=== PATIENT | female | born 1960 | race Caucasian/White ===

== ENCOUNTER 2017-09-15 13:11 | Inpatient (IN) ==
[2017-09-15] MEDS ORDERED: Ondansetron 4 MG/2 ML VIAL IVP PRN (17:17)
--- NOTE | 2017-09-15 17:17 | Emergency Department Note ---
Disposition Clinical Impression: Hyperglycemia, Hyponatremia, Weakness Fatigue Qualifiers: Fatigue type: unspecified Qualified Code(s): R53.83 - Other fatigue Fever Qualifiers: Fever type: unspecified Qualified Code(s): R50.9 - Fever, unspecified Disposition: Admitted As Inpatient Condition: Fair Time of Disposition: 19:28 General Adult HPI - General Chief complaint: ED General Medical Stated complaint: Cold Symptoms Time Seen by Provider: 09/15/17 16:47 Source: patient, EMS Limitations: no limitations Nursing Notes Reviewed: Yes Vital Signs Reviewed: Yes - History of Present Illness HPI Narrative: Patient is a 56-year-old female complains of generalized weakness, fatigue and fevers that started one day ago. She states that she "feels like crap". Patient states symptoms came on suddenly and she has been feeling very hot and worn out. Patient states she has a history of diabetes and that she felt these same symptoms the last time she was admitted and treated for sepsis. Patient states that she has been having urinary incontinence from not being able to make it to the bathroom in time. Patient admits to nausea and vomiting upon arrival to the emergency department. Pain Scale: 0 - Related Data Home Medications Medication Instructions Recorded Confirmed Albuterol Sulfate [Albuterol 2 puff IH Q4HR PRN 03/31/15 09/15/17 Inhaler] Aspirin 81 mg PO DAILY 03/31/15 09/15/17 Sitagliptin Phosphate [Januvia] 100 mg PO DAILY 03/31/15 09/15/17 Albuterol Neb [Proventil Neb] 2.5 mg IH QID PRN 04/27/15 09/15/17 Budesonide/Formoterol 160/4.5 2 puff IH BID 04/27/15 09/15/17 [Symbicort] Clopidogrel [Plavix] 75 mg PO DAILY 04/27/15 09/15/17 Montelukast [Singulair] 10 mg PO QPM 04/27/15 09/15/17 Potassium Chloride 10 meq PO DAILY 04/27/15 09/15/17 Cholecalciferol (D-3) [Vitamin D] 2,000 unit PO DAILY 05/31/16 09/15/17 Duloxetine HCl [Cymbalta] 60 mg PO DAILY 05/31/16 09/15/17 Fluticasone Propionate Nasal 1 spray NS DAILY 05/31/16 09/15/17 [Flonase] Glucagon, Human Recombinant 1 mg IM AD PRN 05/31/16 09/15/17 [GlucaGen] Ipratropium/Albuterol Neb [Duoneb] 3 ml IH Q4HR PRN 05/31/16 09/15/17 Metoprolol XL (24 HR) Succ [Toprol 12.5 mg PO DAILY 05/31/16 09/15/17 Xl] Nitroglycerin [Nitrostat] 0.4 mg SL AD PRN 05/31/16 09/15/17 Ranitidine HCl [Zantac] 150 mg PO BID 05/31/16 09/15/17 TraZODone 50 - 100 mg PO HS PRN 05/31/16 09/15/17 Amitriptyline [Elavil] 50 mg PO HS 05/01/17 09/15/17 Atorvastatin Calcium [Lipitor] 20 mg PO HS 05/01/17 09/15/17 Gabapentin [Neurontin] 800 mg PO QID 05/01/17 09/15/17 Lipase/Protease/Amylase [[place] 1 each PO AD 05/01/17 09/15/17 24,000 Units Capsule] Lipase/Protease/Amylase [[place] 1 each PO TIDWM 05/01/17 09/15/17 36,000 Units Capsule] Liraglutide [Victoza 2-Yovani] 1.8 mg SQ DAILY 05/01/17 09/15/17 Tizanidine HCl [Zanaflex] 4 - 8 mg PO TID PRN 05/01/17 09/15/17 Subcutaneous Insulin Pump [T:Slim] 1 each MC AD 09/15/17 09/15/17 Allergies Allergy/AdvReac Type Severity Reaction Status Date / Time prednisone Allergy Hives Verified 05/01/17 09:04 ibuprofen AdvReac See Verified 05/01/17 09:04 Comments liraglutide [From Victoza] AdvReac Vomiting Verified 05/01/17 09:04 metformin AdvReac Diarrhea Verified 05/01/17 09:04 NSAIDS (Non-Steroidal AdvReac See Verified 05/01/17 09:04 Anti-Inflamma Comments promethazine [From Phenergan] AdvReac Vomiting Verified 05/01/17 09:04 tramadol AdvReac Diarrhea Verified 05/01/17 09:04 All systems ED: reviewed and negative except as stated. Review of Systems: As Per HPI Constitutional: Reports: fever, chills, weakness Gastrointestinal: Reports: nausea, vomiting Genitourinary: Reports: urgency (With incontinence) Endocrine: Reports: fatigue Past Medical History - Past Medical History Attestation: Yes The following information was validated with the patient. Source: patient, nursing notes reviewed Medical history: Reports: COPD, coronary artery disease, DVT, diabetes, hyperlipidemia, hypertension, myocardial infarction, syncope Surgical history: Reports: cholecystectomy Psychiatric history: Reports: bipolar, depression LIFEGUARD history: Reports: bilateral tubal ligation - Social History Smoking Status: Current every day smoker Smokeless Tobacco Status: No Alcohol use: Reports: none Drug use: Reports: none Physical Exam Vital Signs Temperature 100.3 F H 09/15/17 13:31 Pulse Rate 118 09/15/17 13:31 Respiratory Rate 18 09/15/17 13:31 Blood Pressure 146/79 09/15/17 13:31 O2 Sat by Pulse Oximetry 97 09/15/17 13:31 Temperature 100.3 F H 09/15/17 13:31 Pulse Rate 118 09/15/17 13:31 Respiratory Rate 18 09/15/17 13:31 Blood Pressure 146/79 09/15/17 13:31 O2 Sat by Pulse Oximetry 97 09/15/17 16:54 Oxygen Delivery Oxygen Delivery Nasal Cannula 56-year-old female who is alert and oriented 3 with a GCS of 15 who appears severely fatigued is febrile at 100.3, tachycardic at 118 bpm and hypertensive at 146/79, O2 sat 97 on room air - General Limitations: no limitations General appearance: alert, in no apparent distress - Head Head exam: atraumatic, normocephalic, normal inspection - Eye Eye exam: Present: normal appearance, PERRL, EOMI - ENT ENT exam: normal exam, normal oropharynx, mucous membranes moist - Chest Chest inspection: Present: normal inspection, symmetric chest wall rise - Respiratory Respiratory exam: Present: normal lung sounds bilaterally. Absent: respiratory distress, wheezes - Cardiovascular Cardiovascular exam: Present: normal rhythm, tachycardia, normal heart sounds - Abdominal Exam Abdominal exam: Present: soft, Non-Tender. Absent: tenderness, distention, guarding, rebound, rigidity - Extremities Exam Extremities exam: Present: normal inspection, full ROM. Absent: tenderness, pedal edema - Back Exam Back exam: Present: normal inspection, full ROM. Absent: tenderness - Skin Skin exam: Present: warm, dry, intact, normal color Course - Reevaluation(s) Reevaluation #1: Lab results are up and show elevation of bili hydroxybutyric acid the patient has no acidosis the patient is also hyponatremic Time: 18:33 Vital Signs Temperature 100.3 F H 09/15/17 13:31 Pulse Rate 118 09/15/17 13:31 Respiratory Rate 18 09/15/17 13:31 Blood Pressure 146/79 09/15/17 13:31 O2 Sat by Pulse Oximetry 97 09/15/17 13:31 Temperature 98.4 F 09/15/17 21:22 Pulse Rate 102 09/15/17 21:22 Respiratory Rate 17 09/15/17 21:22 Blood Pressure 103/50 09/15/17 21:22 O2 Sat by Pulse Oximetry 97 09/15/17 21:22 Oxygen Delivery Oxygen Delivery Nasal Cannula Medical Decision Making - MDM Narrative Medical decision making narrative: Differential diagnoses for DKA, sepsis, viral infection, UTI. Patient currently has a POC glucose of 382 is febrile and tachycardic. Patient is SIRS positive. Beta hydroxybutyric acid, VBG, urinalysis, CBC, BMP, lactic acid, and cultures ordered. 2 L IV normal saline and Tylenol ordered 1830 hrs.: Nurse informed me that patient states she cannot get up to urinate. Nurse informed the patient that we would have to straight catheter and the patient agreed. 1841 hrs.: Discussed with the patient her current condition concerning her abnormal lab values of the elevated WBC, elevated beta hydroxybutyric acid, decreased sodium, but no anion gap acidosis. Patient is not in DKA but due to her extremely elevated blood glucose, she is at an increased risk and therefore recommend admission for fluid hydration and insulin therapy to get her blood glucose under control. 1928 hrs.: Urine results show no UTI but patient has large amount of ketones in her urine. Patient was started on insulin IV 10 units. Patient's vital signs are improving Dr. Vaughn the hospitalist as accepted the patient for admission at 1932 hrs. - Lab Data Lab results reviewed: Yes I reviewed the patient's lab results. Lab results narrative: Short CBC 09/15/17 Range/Units 17:41 WBC 12.3 H (4.3-11.1) K/mcL Hgb 11.9 (11.5-15.4) g/dL Hct 34.9 L (35.3-44.9) % Plt Count 200 (140-400) K/mcL Neutrophils # 10.9 H (1.6-8.9) K/mcL BMP 09/15/17 Range/Units 17:41 Sodium 129 L (136-145) mEq/L Potassium 4.3 (3.5-5.1) mEq/L Chloride 93 L (98-107) mEq/L Carbon Dioxide 26 (23-29) mEq/L BUN 11 (6-20) mg/dL Creatinine 0.83 (0.60-1.20) mg/dL Glucose 400 H (70-105) mg/dL Calcium 9.3 (8.6-10.3) mg/dL Liver Function 09/15/17 Range/Units 17:41 Total Bilirubin 1.4 H (0.3-1.0) mg/dL Direct Bilirubin 0.4 H (0.0-0.2) mg/dL AST 7 L (13-39) Units/L ALT 11 (7-52) Units/L Alkaline Phosphatase 82 (34-104) Units/L Albumin 4.1 (3.5-5.7) g/dL Result diagrams: 09/15/17 17:41 09/15/17 17:41 Lab Results 09/15/17 09/15/17 09/15/17 Range/Units 17:10 17:41 17:41 WBC 12.3 H (4.3-11.1) K/mcL RBC 3.94 (3.82-4.97) M/mcL Hgb 11.9 (11.5-15.4) g/dL Hct 34.9 L (35.3-44.9) % MCV 88.6 (83.0-100.0) fL MCH 30.2 (28.0-33.3) pg MCHC 34.1 (31.6-35.5) g/dL RDW 14.3 (11.5-14.5) % Plt Count 200 (140-400) K/mcL MPV 9.7 (9.4-12.4) fL Immature Gran % 0.6 (0-4) % Seg Neutrophils % 88.7 % Lymphocytes % 4.3 % Monocytes % 5.8 % Eosinophils % 0.2 % Basophils % 0.4 % Neutrophils # 10.9 H (1.6-8.9) K/mcL Lymphocytes # 0.5 L (0.6-4.6) K/mcL Monocytes # 0.7 (0.0-1.3) K/mcL Eosinophils # 0.0 (0.0-0.6) K/mcL Basophils # 0.1 (0.0-0.2) K/mcL PT 13.1 H (9.4-12.1) Seconds INR 1.2 VBG pH (7.32-7.42) pH Units VBG pCO2 (41-51) mmHg VBG pO2 (25-50) mmHg VBG HCO3 (21-27) mEq/L Sodium (136-145) mEq/L Potassium (3.5-5.1) mEq/L Chloride (98-107) mEq/L Carbon Dioxide (23-29) mEq/L BUN (6-20) mg/dL Creatinine (0.60-1.20) mg/dL Est GFR ( Amer) (> 60) Est GFR (Non-Af Amer) (> 60) BUN/Creatinine Ratio (6-26) Glucose (70-105) mg/dL POC Glucose 382 H (58-89) Calculated Osmolality (280-300) Lactic Acid (0.5-2.2) mmol/L Calcium (8.6-10.3) mg/dL Phosphorus (2.7-4.5) mg/dL Magnesium (1.6-2.6) mg/dL Total Bilirubin (0.3-1.0) mg/dL Direct Bilirubin (0.0-0.2) mg/dL Indirect Bilirubin (0.0-1.2) mg/dL AST (13-39) Units/L ALT (7-52) Units/L Alkaline Phosphatase (34-104) Units/L Troponin I (< 0.04) ng/mL Serum Total Protein (6.4-8.9) g/dL Albumin (3.5-5.7) g/dL Globulin (2.4-3.5) g/dL Albumin/Globulin Ratio (1.1-2.2) Beta-Hydroxybutyric Acd (0.02-0.27) mmol/L Urine Color (Yellow) Urine Clarity (Clear) Urine pH (5.0-8.0) pH Units Ur Specific [place] (1.010-1.025) Urine Protein (Neg-Trace) mg/dL Urine Glucose (UA) (Normal) mg/dL Urine Ketones (Negative) mg/dL Urine Blood (Negative) Urine Nitrite (Negative) Urine Bilirubin (Negative) Urine Urobilinogen (Normal) mg/dL Ur Leukocyte Esterase (Negative) Urine Microscopic RBC (0-3) per hpf Urine Microscopic WBC (0-3) per hpf Ur Squamous Epith Cells (None-Few) per lpf Urine Bacteria (None-Few) per hpf Hyaline Casts (None-Few) per lpf Ur Culture Indicated? (NO) 09/15/17 09/15/17 09/15/17 Range/Units 17:41 17:41 17:41 WBC (4.3-11.1) K/mcL RBC (3.82-4.97) M/mcL Hgb (11.5-15.4) g/dL Hct (35.3-44.9) % MCV (83.0-100.0) fL MCH (28.0-33.3) pg MCHC (31.6-35.5) g/dL RDW (11.5-14.5) % Plt Count (140-400) K/mcL MPV (9.4-12.4) fL Immature Gran % (0-4) % Seg Neutrophils % % Lymphocytes % % Monocytes % % Eosinophils % % Basophils % % Neutrophils # (1.6-8.9) K/mcL Lymphocytes # (0.6-4.6) K/mcL Monocytes # (0.0-1.3) K/mcL Eosinophils # (0.0-0.6) K/mcL Basophils # (0.0-0.2) K/mcL PT (9.4-12.1) Seconds INR VBG pH (7.32-7.42) pH Units VBG pCO2 (41-51) mmHg VBG pO2 (25-50) mmHg VBG HCO3 (21-27) mEq/L Sodium 129 L (136-145) mEq/L Potassium 4.3 (3.5-5.1) mEq/L Chloride 93 L (98-107) mEq/L Carbon Dioxide 26 (23-29) mEq/L BUN 11 (6-20) mg/dL Creatinine 0.83 (0.60-1.20) mg/dL Est GFR ( Amer) > 60 (> 60) Est GFR (Non-Af Amer) > 60 (> 60) BUN/Creatinine Ratio 13 (6-26) Glucose 400 H (70-105) mg/dL POC Glucose (58-89) Calculated Osmolality 284 (280-300) Lactic Acid 1.0 (0.5-2.2) mmol/L Calcium 9.3 (8.6-10.3) mg/dL Phosphorus 2.8 (2.7-4.5) mg/dL Magnesium 1.6 (1.6-2.6) mg/dL Total Bilirubin 1.4 H (0.3-1.0) mg/dL Direct Bilirubin 0.4 H (0.0-0.2) mg/dL Indirect Bilirubin 1.0 (0.0-1.2) mg/dL AST 7 L (13-39) Units/L ALT 11 (7-52) Units/L Alkaline Phosphatase 82 (34-104) Units/L Troponin I (< 0.04) ng/mL Serum Total Protein 7.9 (6.4-8.9) g/dL Albumin 4.1 (3.5-5.7) g/dL Globulin 3.8 H (2.4-3.5) g/dL Albumin/Globulin Ratio 1.1 (1.1-2.2) Beta-Hydroxybutyric Acd 0.77 H (0.02-0.27) mmol/L Urine Color (Yellow) Urine Clarity (Clear) Urine pH (5.0-8.0) pH Units Ur Specific [place] (1.010-1.025) Urine Protein (Neg-Trace) mg/dL Urine Glucose (UA) (Normal) mg/dL Urine Ketones (Negative) mg/dL Urine Blood (Negative) Urine Nitrite (Negative) Urine Bilirubin (Negative) Urine Urobilinogen (Normal) mg/dL Ur Leukocyte Esterase (Negative) Urine Microscopic RBC (0-3) per hpf Urine Microscopic WBC (0-3) per hpf Ur Squamous Epith Cells (None-Few) per lpf Urine Bacteria (None-Few) per hpf Hyaline Casts (None-Few) per lpf Ur Culture Indicated? (NO) 09/15/17 09/15/17 09/15/17 Range/Units 17:41 18:14 18:50 WBC (4.3-11.1) K/mcL RBC (3.82-4.97) M/mcL Hgb (11.5-15.4) g/dL Hct (35.3-44.9) % MCV (83.0-100.0) fL MCH (28.0-33.3) pg MCHC (31.6-35.5) g/dL RDW (11.5-14.5) % Plt Count (140-400) K/mcL MPV (9.4-12.4) fL Immature Gran % (0-4) % Seg Neutrophils % % Lymphocytes % % Monocytes % % Eosinophils % % Basophils % % Neutrophils # (1.6-8.9) K/mcL Lymphocytes # (0.6-4.6) K/mcL Monocytes # (0.0-1.3) K/mcL Eosinophils # (0.0-0.6) K/mcL Basophils # (0.0-0.2) K/mcL PT (9.4-12.1) Seconds INR VBG pH 7.36 (7.32-7.42) pH Units VBG pCO2 47 (41-51) mmHg VBG pO2 125 H (25-50) mmHg VBG HCO3 27 (21-27) mEq/L Sodium (136-145) mEq/L Potassium (3.5-5.1) mEq/L Chloride (98-107) mEq/L Carbon Dioxide (23-29) mEq/L BUN (6-20) mg/dL Creatinine (0.60-1.20) mg/dL Est GFR ( Amer) (> 60) Est GFR (Non-Af Amer) (> 60) BUN/Creatinine Ratio (6-26) Glucose (70-105) mg/dL POC Glucose (58-89) Calculated Osmolality (280-300) Lactic Acid (0.5-2.2) mmol/L Calcium (8.6-10.3) mg/dL Phosphorus (2.7-4.5) mg/dL Magnesium (1.6-2.6) mg/dL Total Bilirubin (0.3-1.0) mg/dL Direct Bilirubin (0.0-0.2) mg/dL Indirect Bilirubin (0.0-1.2) mg/dL AST (13-39) Units/L ALT (7-52) Units/L Alkaline Phosphatase (34-104) Units/L Troponin I < 0.03 (< 0.04) ng/mL Serum Total Protein (6.4-8.9) g/dL Albumin (3.5-5.7) g/dL Globulin (2.4-3.5) g/dL Albumin/Globulin Ratio (1.1-2.2) Beta-Hydroxybutyric Acd (0.02-0.27) mmol/L Urine Color Yellow (Yellow) Urine Clarity Cloudy A (Clear) Urine pH 6.0 (5.0-8.0) pH Units Ur Specific [place] > 1.030 H (1.010-1.025) Urine Protein 100 H (Neg-Trace) mg/dL Urine Glucose (UA) >=1000 H (Normal) mg/dL Urine Ketones 15 H (Negative) mg/dL Urine Blood Small H (Negative) Urine Nitrite Negative (Negative) Urine Bilirubin Negative (Negative) Urine Urobilinogen Normal (Normal) mg/dL Ur Leukocyte Esterase Negative (Negative) Urine Microscopic RBC 3-5 H (0-3) per hpf Urine Microscopic WBC 15-30 H (0-3) per hpf Ur Squamous Epith Cells Many H (None-Few) per lpf Urine Bacteria Many H (None-Few) per hpf Hyaline Casts None Seen (None-Few) per lpf Ur Culture Indicated? NO (NO) - Radiology Data Radiology results reviewed: Yes I reviewed the patient's radiology results. Chest X-Ray 09/15/17 18:49 IMPRESSION: No acute cardiopulmonary abnormality. D/ / Osman Merlos MD / Osman Merlos MD Interpreting Provider: Osman Merlos MD - EKG Data EKG #1 EKG attestation: Yes I reviewed and interpreted this EKG. EKG results narrative: EKG taken 09/15/2017 at 1733 hrs. shows a sinus tachycardia at a rate of 1 16 bpm without signs of ischemia. His EKG for comparison taken 11/11/2016 shows a sinus rhythm at 95 bpm with no also no signs of ischemia.
[2017-09-15] MEDS: 0.9 % Sodium Chloride 1,000 ML IVC SCH ×2 (17:43→19:35)
--- NOTE | 2017-09-15 17:43 | Emergency Department Note ---
START Narrative - START START: I examined this patient and my medical decision-making was reviewed with the emergency medicine resident. I agree with the documented findings, disposition and treatment plan as described except to the extent set forth below. Patient seen with emergency medicine resident Dr. Baltazar Brand, Please see a copy of his note for details of the H&P, ED evaluation, management and disposition. I have independently evaluated the patient and confirmed appropriate portions of the history and physical exam. Briefly: A 56-year-old female diabetic via EMS for nausea vomiting weakness loss of appetite polyuria polydipsia generalized weakness cough headache and myalgias. Patient otherwise febrile tachycardic ill-appearing but nontoxic. Patient interlude of normal saline bolus. Patient getting screening labs chest x-ray EKG urinalysis. Admission is anticipated. Disposition pending.
[2017-09-15 17:54] LABS: Basophils # 0.1 K/mcL (0.0-0.2); Basophils % 0.4 %; Eosinophils % 0.2 %; Hematocrit 34.9 % (35.3-44.9); Hemoglobin 11.9 g/dL (11.5-15.4); Immature Granulocytes % 0.6 % (0-4); Lymphocytes # 0.5 K/mcL (0.6-4.6); Lymphocytes % 4.3 %; Mean Corpuscular HGB Conc 34.1 g/dL (31.6-35.5); Mean Corpuscular Hemoglobin 30.2 pg (28.0-33.3); Mean Corpuscular Volume 88.6 fL (83.0-100.0); Mean Platelet Volume 9.7 fL (9.4-12.4); Monocytes # 0.7 K/mcL (0.0-1.3); Monocytes % 5.8 %; Neutrophils # 10.9 K/mcL (1.6-8.9); Platelet Count 200 K/mcL (140-400); Red Blood Count 3.94 M/mcL (3.82-4.97); Red Cell Distribution Width 14.3 % (11.5-14.5); Segmented Neutrophils % 88.7 %
[2017-09-15 18:00] LABS: INR 1.2; Prothrombin Time 13.1 Seconds (9.4-12.1)
[2017-09-15 18:15] LABS: Alanine Aminotransferase 11 Units/L (7-52); Albumin 4.1 g/dL (3.5-5.7); Albumin/Globulin Ratio 1.1 (1.1-2.2); Alkaline Phosphatase 82 Units/L (34-104); Aspartate Amino Transferase 7 Units/L (13-39); BUN/Creatinine Ratio 13 (6-26); Bilirubin,Direct 0.4 mg/dL (0.0-0.2); Bilirubin,Total 1.4 mg/dL (0.3-1.0); Blood Urea Nitrogen 11 mg/dL (6-20); Calcium 9.3 mg/dL (8.6-10.3); Carbon Dioxide 26 mEq/L (23-29); Chloride 93 mEq/L (98-107); Globulin 3.8 g/dL (2.4-3.5); Glucose 400 mg/dL (70-105); Magnesium 1.6 mg/dL (1.6-2.6); Osmolality,Calculated 284 (280-300); Phosphorous 2.8 mg/dL (2.7-4.5); Potassium 4.3 mEq/L (3.5-5.1); Sodium 129 mEq/L (136-145); Total Protein 7.9 g/dL (6.4-8.9); eGFR For African Americans > 60 (> 60); eGFR For Non-African Americans > 60 (> 60)
[2017-09-15 18:18] LABS: VBG HCO3 27 mEq/L (21-27); VBG PCO2 47 mmHg (41-51); VBG PH 7.36 pH Units (7.32-7.42); VBG PO2 125 mmHg (25-50)
[2017-09-15 19:14] LABS: Bilirubin,Urine Negative (Negative); Blood,Urine Small (Negative); Clarity,Urine Cloudy (Clear); Color,Urine Yellow (Yellow); Glucose,Urine (UA) >=1000 mg/dL (Normal); Ketones,Urine 15 mg/dL (Negative); Leukocyte Esterase,Urine Negative (Negative); Nitrite,Urine Negative (Negative); Protein,Urine 100 mg/dL (Neg-Trace); Specific Gravity,Urine > 1.030 (1.010-1.025); Urobilinogen,Urine Normal (Normal)
[2017-09-15 19:16] LABS: Bacteria,Urine Many per hpf (None-Few); Hyaline Casts,Urine None Seen per lpf (None-Few); Squamous Epithelial Cell,Urine Many per lpf (None-Few); WBC,Urine 15-30 per hpf (0-3)
[2017-09-15] MEDS ORDERED: Insulin Human Regular 10 UNIT in 0.9 % Sodium Chloride 10 ML IV ONE ×2 (19:22→19:26)
[2017-09-15] MEDS ORDERED: 0.9 % Sodium Chloride 1,000 ML ONE (19:33)
[2017-09-15] MEDS ORDERED: Acetaminophen 325 MG TABLET PO PRN (23:04)
[2017-09-15] MEDS ORDERED: Naloxone 0.4 MG/ML INJ IVP PRN (23:04)
[2017-09-15] MEDS ORDERED: traZODone 50 MG TABLET PO PRN (23:24)
[2017-09-15] MEDS ORDERED: Ipratropium/Albuterol Neb 3 ML IH PRN (23:24)
[2017-09-15] MEDS ORDERED: Albuterol 2.5 MG/3 ML NEBULIZER IH PRN (23:24)
[2017-09-15] MEDS ORDERED: tiZANidine 4 MG TABLET PO PRN (23:24)
[2017-09-15] MEDS ORDERED: Nitroglycerin 0.4 MG TAB.SUBL SL PRN (23:24)
[2017-09-15] MEDS ORDERED: 0.9 % Sodium Chloride 1,000 ML IVC ONE (23:32)
[2017-09-15] MEDS ORDERED: Dextrose Gel 15 GM/37.5 ML TUBE PO PRN ×2 (23:37)
[2017-09-15] MEDS ORDERED: D5% in Water 1,000 ML IVC PRN (23:37)
[2017-09-15] MEDS ORDERED: *HR* Dextrose 50 % in Water (Syg) 50 ML SYRINGE IVP PRN (23:37)
[2017-09-15] MEDS ORDERED: Insulin DETEMIR 100 UNIT/ML X5UNITS SQ SCH (23:45)
[2017-09-15] MEDS ORDERED: 0.9 % Sodium Chloride 1,000 ML IVC SCH (23:45)
--- NOTE | 2017-09-15 23:48 | Internal Med History&Physical ---
Date of Encounter: 09/15/17 Time of Encounter: 22:00 Assessment and Plan (1) UTI (urinary tract infection) Current visit: Yes Status: Acute Acute UTI. Pt. reports hx of chronic UTIs. Initial U/A in ED suspicious for UTI. Urine reflex culture and micro ordered. Pt. receiving 0.9 NS IV fluids per sepsis protocol. IVPB ceftriaxone 1000 mg daily for infection coverage. Will adjust abx coverage based on culture results. Monitor I&O and f/u labs. Pt. discussed w/Dr. Vaughn who is in agreement w/plan of care. Pt. is high risk for further morbidity from infection d/t current sepsis criteria, current and hx of UTI, current sx, and risk factors. Inpatient. Qualifiers: Urinary tract infection type: site unspecified Hematuria presence: without hematuria Qualified Code(s): N39.0 - Urinary tract infection, site not specified (2) Sepsis Current visit: Yes Status: Acute Pt. meets sepsis criteria w/WBC of 12.3, HR of 118 bpm, and suspected UTI. Pt. received 1L bolus of 0.9 NS in ED. Will follow w/second 1L bolus and 100 mL/HR. Initial lactic acid 1.0. Will repeat. Temp 100.3F. Acetaminophen 650 mg PO Q6 ordered for fever. Blood cultures x2. Urine reflex micro and culture ordered. Ceftriaxone 1000 mg daily for infection coverage. Will adjust abx coverage based on culture results. Continuous cardiac telemetry. Supplemental O2 w/ titration and SpO2 monitoring. Monitor pt. for signs of increasing infection and f/u labs. Qualifiers: Sepsis type: sepsis due to unspecified organism Qualified Code(s): A41.9 - Sepsis, unspecified organism (3) SOB (shortness of breath) Current visit: Yes Status: Acute Acute SOB d/t current sx. Pts. lungs clear on auscultation. 1 view CXR today shows no acute cardiopulmonary abnormality. No convincing evidence of a focal consolidation. No pleural effusion or pneumothorax seen. Pt. has hx of COPD. Supplemental O2 with titration at SPO2 monitoring. Continue patient's DuoNebs every 4. Falls/safety precautions. (4) Hyperglycemia Current visit: Yes Status: Acute Acute hyperglycemia w/o DKA most likely d/t pt. currently not using insulin pump. BG 400 on admission. Pt. given 20 units Humalog in ED. BG during exam 351. Levemir 10 units HS and medium-dose correction insulin sliding scale w/ hypoglycemic protocol ordered. BG checks Q3HR. A1c in a.m. labs. ADA/cardiac diet. (5) Hyponatremia Current visit: Yes Status: Acute Acute hyponatremia w/sodium of 129 and hypochloremia w/chloride of 93 on admission. Pt. receiving 0.9 NS IV fluids for sepsis. Monitor sodium and chloride in f/u labs. (6) Weakness Current visit: Yes Status: Acute Acute weakness r/t pts. current sx and UTI. Falls/safety precautions, up with assist, and bed rest w/bedside commode w/assist only. (7) Diarrhea Current visit: Yes Status: Acute Acute diarrhea. Imodium 2 mg Q4 PRN. Monitor I&O. Fecal hemoccult ordered d/t pts. report of occasional dark stool. Qualifiers: Diarrhea type: unspecified type Qualified Code(s): R19.7 - Diarrhea, unspecified (8) CAD (coronary artery disease) Current visit: Yes Status: Chronic Hx of chronic CAD w/hx of previous [place] in June 2011 and stent x1. Continue patient's aspirin therapy, Plavix, metoprolol, and Lipitor. Qualifiers: Coronary Disease-Associated Artery/Lesion type: [place] artery [place] vs. transplanted heart: [place] heart Associated angina: with stable angina Qualified Code(s): I25.118 - Atherosclerotic heart disease of [place] coronary artery with other forms of angina pectoris (9) COPD (chronic obstructive pulmonary disease) Current visit: Yes Status: Chronic Hx of chronic COPD with emphysema. Stable. Supplemental O2 with titration of SPO2 monitoring. Continue patient's DuoNeb's every 4. Qualifiers: COPD type: emphysema Emphysema type: unspecified Qualified Code(s): J43.9 - Emphysema, unspecified (10) Diabetes mellitus Current visit: Yes Status: Chronic Hx of chronic diabetes controlled by insulin pump, Victoza, Januvia, and Glucagon. Pt. was hyperglycemic on admission w/BG of 400. Pt. states she is not currently wearing her insulin pump. Levemir 10 units HS ordered. Medium dose correction insulin and hypoglycemic protocol. A1c in a.m. labs. BG checks Q3HR. Pt. is currently not in DKA and will be monitored closely. Qualifiers: Diabetes mellitus type: type 2 Diabetes mellitus complication status: with unspecified complications Diabetes mellitus intermediate insulin use: unspecified intermediate insulin use status Qualified Code(s): E11.8 - Type 2 diabetes mellitus with unspecified complications (11) HTN (hypertension) Current visit: Yes Status: Chronic Hx of chronic HTN. Monitor pt and VS. Continue pts. Metoprolol. Qualifiers: Hypertension type: essential hypertension Qualified Code(s): I10 - Essential (primary) hypertension (12) HLD (hyperlipidemia) Current visit: Yes Status: Chronic Hx of chronic HLD. Lipid panel in a.m. labs. Continue pts. Lipitor. Qualifiers: Hyperlipidemia type: pure hypercholesterolemia Qualified Code(s): E78.00 - Pure hypercholesterolemia, unspecified; E78.0 - Pure hypercholesterolemia (13) DVT prophylaxis Current visit: Yes Status: Acute Heparin 5000 units subcutaneous every 8 for DVT prophylaxis. Monitor patient for signs of bleeding. Internal Medicine - H&P: HPI Chief complaint: Hyperglycemia, Weakness, Fever Admitted From: Emergency Dept Plans for Post Hospital Care: Home History of present illness: Ms. Mark is a 56 year old female with medical hx of COPD, CAD, DVT several years ago, diabetes controlled with insulin, hyperlipidemia, hypertension, previous myocardial infarction in June 2011, and syncope presents from the ED with chief complaint of generalized weakness, SOB, unsteadiness on her feet, hyperglycemia, fever, chills, nausea, vomiting, diarrhea, and feeling unwell that started on Friday. Pt. states sx became much worse today. Pt. denies headache, cough, changes in vision, chest pain, palpitations, unusual bleeding, lightheadedness, pre-syncope, or syncope. Past Med Surg Social Fam HX - Past Medical History Source: patient, old records reviewed Medical history: COPD, coronary artery disease, DVT (Many years ago), diabetes ( Insulin controlled), hyperlipidemia, hypertension, myocardial infarction ( June 2011), syncope Psychiatric history: bipolar, depression - Past Surgical History Surgical History: cholecystectomy - Social History Smoking Status: Current every day smoker Packs per day: 4-5 cigarettes/day Smokeless Tobacco Status: No Alcohol use: none Drug use: none Current living situation: Home Activity Level: Uses cane/walker Recent Out of Country Travel Within the Last 8 Weeks: No Exposure or Possible Exposure to Illness During Travel: No - Family History Sister Race: Family Member Ethnicity: Non- Living Status: Cause of : Lung Cancer Hx Family Respiratory Disorders: Yes (COPD) Hx Family Cancer: Yes (Lung cancer) Mother Race: Family Member Ethnicity: Non- Living Status: Father Adopted: No Race: Family Member Ethnicity: Non- Living Status: Internal Medicine - H&P: Meds Albuterol Sulfate [Albuterol Inhaler] 2 puff IH Q4HR PRN 03/31/15 [History] Aspirin 81 mg PO DAILY 03/31/15 [History] Sitagliptin Phosphate [Januvia] 100 mg PO DAILY 03/31/15 [History] Albuterol Neb [Proventil Neb] 2.5 mg IH QID PRN 04/27/15 [History] Budesonide/Formoterol 160/4.5 [Symbicort] 2 puff IH BID 04/27/15 [History] Clopidogrel [Plavix] 75 mg PO DAILY 04/27/15 [History] Montelukast [Singulair] 10 mg PO QPM 04/27/15 [History] Potassium Chloride 10 meq PO DAILY 04/27/15 [History] Cholecalciferol (D-3) [Vitamin D] 2,000 unit PO DAILY 05/31/16 [History] Duloxetine HCl [Cymbalta] 60 mg PO DAILY 05/31/16 [History] Fluticasone Propionate Nasal [Flonase] 1 spray NS DAILY 05/31/16 [History] Glucagon, Human Recombinant [GlucaGen] 1 mg IM AD PRN 05/31/16 [History] Ipratropium/Albuterol Neb [Duoneb] 3 ml IH Q4HR PRN 05/31/16 [History] Metoprolol XL (24 HR) Succ [Toprol Xl] 12.5 mg PO DAILY 05/31/16 [History] Nitroglycerin [Nitrostat] 0.4 mg SL AD PRN 05/31/16 [History] Ranitidine HCl [Zantac] 150 mg PO BID 05/31/16 [History] TraZODone 50 - 100 mg PO HS PRN 05/31/16 [History] Amitriptyline [Elavil] 50 mg PO HS 05/01/17 [History] Atorvastatin Calcium [Lipitor] 20 mg PO HS 05/01/17 [History] Gabapentin [Neurontin] 800 mg PO QID 05/01/17 [History] Lipase/Protease/Amylase [[place] 24,000 Units Capsule] 1 each PO AD 05/01/17 [ History] Lipase/Protease/Amylase [[place] 36,000 Units Capsule] 1 each PO TIDWM [History] Liraglutide [Victoza 2-Yovani] 1.8 mg SQ DAILY 05/01/17 [History] Tizanidine HCl [Zanaflex] 4 - 8 mg PO TID PRN 05/01/17 [History] Subcutaneous Insulin Pump [T:Slim] 1 each MC AD 09/15/17 [History] 3 Allergy/AdvReac Type Severity Reaction Status Date / Time prednisone Allergy Hives Verified 05/01/17 09:04 ibuprofen AdvReac See Verified 05/01/17 09:04 Comments liraglutide [From Victoza] AdvReac Vomiting Verified 05/01/17 09:04 metformin AdvReac Diarrhea Verified 05/01/17 09:04 NSAIDS (Non-Steroidal AdvReac See Verified 05/01/17 09:04 Anti-Inflamma Comments promethazine [From Phenergan] AdvReac Vomiting Verified 05/01/17 09:04 tramadol AdvReac Diarrhea Verified 05/01/17 09:04 All Systems PM: A 10-system review of systems was performed and is negative for pertinent findings except as documented above in the HPI. - Constitutional Constitutional: as per HPI, chills, fatigue, fever(s), weakness, no night sweats - EENT Eyes: no change in vision, no discharge, no pain, no photophobia Ears: no ear discharge, no ear pain, no tinnitus Nose, mouth and throat: no dysphagia, no nasal discharge, no neck pain, no sore throat - Breasts Breasts: as per HPI - Cardiovascular Cardiovascular ROS IM: as per HPI, dyspnea, dyspnea on exertion, edema ( Bilateral LEs), no chest pain, no diaphoresis, no lightheadedness, no palpitations, no syncope - Respiratory Respiratory: as per HPI, dyspnea, dyspnea on exertion, no cough, no wheezing, no excessive phlegm production - Gastrointestinal Gastrointestinal: as per HPI, diarrhea, nausea, vomiting, no abdominal pain, no hematemesis, no hematochezia, no melena - Genitourinary Genitourinary: as per HPI, no change in urinary stream, no dysuria, no flank pain, no hematuria Menstruation: as per HPI - Musculoskeletal Musculoskeletal ROS IM: no numbness, no tingling - Integumentary Integumentary IM: no rash, no unusual bruising - Neurological Neurological ROS: as per HPI, weakness, no confusion, no convulsions, no focal weakness, no numbness, no tingling, no tremor(s) - Psychiatric Psychiatric: as per HPI, depression - Endocrine Endocrine IM: as per HPI - Hematologic/Lymphatic Hematologic/Lymphatic: no easy bruising - Allergic/Immunologic Allergic/Immunologic: as per HPI - Constitutional Vitals: Temp Pulse Resp BP Pulse Ox 98.4 F 102 17 103/50 97 09/15/17 21:22 09/15/17 21:22 09/15/17 21:22 09/15/17 21:22 09/15/17 21:22 General appearance: Present: cooperative, mild distress (Weakness, chills, SOB) , A&O X 3, morbidly obese, pleasant, answers questions appropriately - Head Head exam: Present: atraumatic, normocephalic - Eye Eye exam: Present: PERRL, conjuntiva pink, sclera anicteric Pupils: Present: PERRL - ENT ENT exam: Present: normal exam - Neck Neck exam general surgery: Present: normal inspection, supple, trachea midline. Absent: lymphadenopathy - Respiratory Respiratory exam: Present: CTAB. Absent: accessory muscle use, rales, rhonchi, wheezes - Cardiovascular Cardiovascular exam: Present: tachycardia - GI/Abdominal GI/Abdominal exam: Present: normal bowel sounds, soft, no peritoneal signs. Absent: distended, tenderness - Rectal Rectal exam: Present: deferred - Additional comments: Gu exam deferred. - Extremities Exam Extremities exam: Present: pedal edema, warm, radial pulses palpable and symmetrical. Absent: calf tenderness, cyanotic - Back Exam Back exam: Present: normal inspection - Neurological Exam Neurological exam: Present: CN II-XII intact, oriented X3, no focal deficits. Absent: pronater drift, facial droop, speech deficit - Psychiatric Psychiatric exam: Present: normal affect, normal mood - Skin Additional comments: Psoriasis on pts. bilateral LEs. Internal Med - H&P Results - Labs CBC & Chem 7: 09/15/17 17:41 09/15/17 17:41 - EKG Data EKG shows normal: sinus rhythm Rate: tachycardia - EKG Data Prior EKG available for review: yes EKG comments: 09/15/17 23:58 EKG dated 11/11/16 shows sinus rhythm with nonspecific T-wave abnormality. EKG dated 09/15/17 shows sinus tachycardia with occasional supraventricular premature complexes and minimal ST depression. - Diagnostic Studies Chest x-ray Additional comments: Impressions Chest X-Ray 09/15/17 18:49 IMPRESSION: No acute cardiopulmonary abnormality. D/ / Osman Merlos MD / Osman Merlos MD Interpreting Provider: Osman Merlos MD
[2017-09-16 01:19] LABS: Basophils % 0.3 %; Eosinophils # 0.1 K/mcL (0.0-0.6); Eosinophils % 0.8 %; Hematocrit 35.4 % (35.3-44.9); Hemoglobin 11.4 g/dL (11.5-15.4); Immature Granulocytes % 0.8 % (0-4); Lymphocytes # 0.6 K/mcL (0.6-4.6); Lymphocytes % 6.3 %; Mean Corpuscular HGB Conc 32.2 g/dL (31.6-35.5); Mean Corpuscular Hemoglobin 29.3 pg (28.0-33.3); Mean Platelet Volume 9.6 fL (9.4-12.4); Monocytes # 0.7 K/mcL (0.0-1.3); Monocytes % 6.7 %; Neutrophils # 8.4 K/mcL (1.6-8.9); Platelet Count 193 K/mcL (140-400); Red Blood Count 3.89 M/mcL (3.82-4.97); Red Cell Distribution Width 14.6 % (11.5-14.5); Segmented Neutrophils % 85.1 %
[2017-09-16 01:28] LABS: Hemoglobin A1C 5.8 %
[2017-09-16 01:33] LABS: Alanine Aminotransferase 5 Units/L (7-52); Albumin 3.7 g/dL (3.5-5.7); Alkaline Phosphatase 77 Units/L (34-104); Aspartate Amino Transferase 8 Units/L (13-39); BUN/Creatinine Ratio 15 (6-26); Bilirubin,Total 1.2 mg/dL (0.3-1.0); Blood Urea Nitrogen 12 mg/dL (6-20); Calcium 8.9 mg/dL (8.6-10.3); Carbon Dioxide 22 mEq/L (23-29); Chloride 99 mEq/L (98-107); Cholesterol 130 mg/dL (< 200); Globulin 3.8 g/dL (2.4-3.5); Glucose 360 mg/dL (70-105); HDL Cholesterol 26 mg/dL (40-59); LDL Cholesterol,Calculated 66 mg/dL (0-99); Osmolality,Calculated 288 (280-300); Potassium 4.3 mEq/L (3.5-5.1); Sodium 132 mEq/L (136-145); Total Protein 7.5 g/dL (6.4-8.9); Triglycerides 189 mg/dL (< 150); eGFR For African Americans > 60 (> 60); eGFR For Non-African Americans > 60 (> 60)
[2017-09-16] MEDS ORDERED: cefTRIAXone 1,000 MG in Water for inj. (sterile) 20 ML 10 ML IVP SCH (02:10)
[2017-09-16] MEDS: *HR* Heparin 5,000 UNIT/ML VIAL SQ SCH ×3 (04:01→21:14)
[2017-09-16] MEDS ORDERED: Insulin LISPRO 300 UNITS/3 ML VIAL SQ SCH (07:30)
[2017-09-16] MEDS: Cholecalciferol (D-3) 1,000 UNIT TABLET PO SCH (08:26)
[2017-09-16] MEDS: Metoprolol XL (24 HR) Succ 25 MG TAB.ER.24H PO SCH (08:27)
[2017-09-16] MEDS: Famotidine 20 MG TABLET PO SCH ×2 (08:27→21:14)
[2017-09-16] MEDS: Gabapentin 400 MG CAPSULE PO SCH ×4 (08:28→21:14)
[2017-09-16] MEDS: Aspirin 81 MG TAB.CHEW PO SCH (08:28)
[2017-09-16] MEDS: Fluticasone Propionate Nasal 50 MCG/SPRAY BOTTLE NS SCH (08:30)
[2017-09-16] MEDS ORDERED: Budesonide/Formoterol 160/4.5 MDI IH SCH (09:00)
--- NOTE | 2017-09-16 10:17 | Internal Med Progress Note ---
Date of Encounter: 09/16/17 Time of Encounter: 10:17 - Constitutional Vitals: Temp Pulse Resp BP Pulse Ox 97.9 F 104 18 137/65 94 09/16/17 07:50 09/16/17 07:50 09/16/17 07:59 09/16/17 07:50 09/16/17 08:45 General appearance: Present: cooperative, mild distress (Weakness, chills, SOB) , A&O X 3, morbidly obese, pleasant, answers questions appropriately Internal Medicine: Result - Labs CBC & Chem 7: 09/16/17 00:57 09/16/17 00:57 Labs: Short CBC 09/16/17 Range/Units 00:57 WBC 9.8 (4.3-11.1) K/mcL Hgb 11.4 L (11.5-15.4) g/dL Hct 35.4 (35.3-44.9) % Plt Count 193 (140-400) K/mcL Neutrophils # 8.4 (1.6-8.9) K/mcL BMP 09/16/17 00:57 Sodium 132 L Potassium 4.3 Chloride 99 Carbon Dioxide 22 L BUN 12 Creatinine 0.79 Glucose 360 H Calcium 8.9 Liver Function 09/16/17 Range/Units 00:57 Total Bilirubin 1.2 H (0.3-1.0) mg/dL AST 8 L (13-39) Units/L ALT 5 L (7-52) Units/L Alkaline Phosphatase 77 (34-104) Units/L Albumin 3.7 (3.5-5.7) g/dL - ABG Interpretation ABG results: PT/INR, D-dimer PT 13.1 Seconds (9.4-12.1) H 09/15/17 17:41 D-Dimer 796 ng/mLFEU (0-500) H 09/16/17 00:57 Consult Discharge Plan - Plan Referrals: Jose Juan Tomas MD [Partnered Physician] - 10/14/17 11:10 am ,Tiffani Ortega CNP [Primary Care Provider] - 09/23/17 2:00 pm
--- NOTE | 2017-09-16 11:02 | Discharge Summary ---
Date of Encounter: 09/16/17 Time of Encounter: 10:58 - Discharge Diagnosis (1) Viral URI Status: Acute (2) UTI (urinary tract infection) Status: Acute Qualifiers: Urinary tract infection type: site unspecified Hematuria presence: without hematuria Qualified Code(s): N39.0 - Urinary tract infection, site not specified (3) Diabetes mellitus Status: Chronic Qualifiers: Diabetes mellitus type: type 2 Diabetes mellitus complication status: with unspecified complications Diabetes mellitus residential insulin use: unspecified residential insulin use status Qualified Code(s): E11.8 - Type 2 diabetes mellitus with unspecified complications (4) COPD (chronic obstructive pulmonary disease) Status: Chronic Qualifiers: COPD type: emphysema Emphysema type: unspecified Qualified Code(s): J43.9 - Emphysema, unspecified (5) CAD (coronary artery disease) Status: Chronic Qualifiers: Coronary Disease-Associated Artery/Lesion type: [place] artery [place] vs. transplanted heart: [place] heart Associated angina: with stable angina Qualified Code(s): I25.118 - Atherosclerotic heart disease of [place] coronary artery with other forms of angina pectoris (6) HTN (hypertension) Status: Chronic Qualifiers: Hypertension type: essential hypertension Qualified Code(s): I10 - Essential (primary) hypertension - Discharge Medications Home Medications: Albuterol Sulfate [Albuterol Inhaler] 2 puff IH Q4HR PRN 03/31/15 [History] Aspirin 81 mg PO DAILY 03/31/15 [History] Sitagliptin Phosphate [Januvia] 100 mg PO DAILY 03/31/15 [History] Albuterol Neb [Proventil Neb] 2.5 mg IH QID PRN 04/27/15 [History] Budesonide/Formoterol 160/4.5 [Symbicort] 2 puff IH BID 04/27/15 [History] Clopidogrel [Plavix] 75 mg PO DAILY 04/27/15 [History] Montelukast [Singulair] 10 mg PO QPM 04/27/15 [History] Potassium Chloride 10 meq PO DAILY 04/27/15 [History] Cholecalciferol (D-3) [Vitamin D] 2,000 unit PO DAILY 05/31/16 [History] Duloxetine HCl [Cymbalta] 60 mg PO DAILY 05/31/16 [History] Fluticasone Propionate Nasal [Flonase] 1 spray NS DAILY 05/31/16 [History] Glucagon, Human Recombinant [GlucaGen] 1 mg IM AD PRN 05/31/16 [History] Ipratropium/Albuterol Neb [Duoneb] 3 ml IH Q4HR PRN 05/31/16 [History] Metoprolol XL (24 HR) Succ [Toprol Xl] 12.5 mg PO DAILY 05/31/16 [History] Nitroglycerin [Nitrostat] 0.4 mg SL AD PRN 05/31/16 [History] Ranitidine HCl [Zantac] 150 mg PO BID 05/31/16 [History] TraZODone 50 - 100 mg PO HS PRN 05/31/16 [History] Amitriptyline [Elavil] 50 mg PO HS 05/01/17 [History] Atorvastatin Calcium [Lipitor] 20 mg PO HS 05/01/17 [History] Gabapentin [Neurontin] 800 mg PO QID 05/01/17 [History] Lipase/Protease/Amylase [[place] [address] 24,000 Units Capsule] 1 each PO AD 05/01/17 [ History] Lipase/Protease/Amylase [[place] Dr 36,000 Units Capsule] 1 each PO TIDWM [History] Liraglutide [Victoza 2-Yovani] 1.8 mg SQ DAILY 05/01/17 [History] Tizanidine HCl [Zanaflex] 4 - 8 mg PO TID PRN 05/01/17 [History] Subcutaneous Insulin Pump [T:Slim] 1 each MC AD 09/15/17 [History] Allergies/Adverse Reactions: 3 Allergy/AdvReac Type Severity Reaction Status Date / Time prednisone Allergy Hives Verified 05/01/17 09:04 ibuprofen AdvReac See Verified 05/01/17 09:04 Comments liraglutide [From Victoza] AdvReac Vomiting Verified 05/01/17 09:04 metformin AdvReac Diarrhea Verified 05/01/17 09:04 NSAIDS (Non-Steroidal AdvReac See Verified 05/01/17 09:04 Anti-Inflamma Comments promethazine [From Phenergan] AdvReac Vomiting Verified 05/01/17 09:04 tramadol AdvReac Diarrhea Verified 05/01/17 09:04 Date of admission: 09/15/17 23:04 Primary care physician: Tiffani Brewer CNP Discharging clinician: Jacek Medina Anticipated date of discharge: 09/16/17 - Patient Status Condition: Fair - Discharge Instructions Follow Up With: Jose Juan Tomas MD [Partnered Physician] - 10/14/17 11:10 am Tiffani Brewer CNP [Primary Care Provider] - 09/23/17 2:00 pm Hospital course: Ms. Mark is a 56 year old female - Time Spent with Patient Total time spent providing and/or coordinating discharge services: - Constitutional Vitals: Temp Pulse Resp BP Pulse Ox 97.9 F 104 18 137/65 94 09/16/17 07:50 09/16/17 07:50 09/16/17 07:59 09/16/17 07:50 09/16/17 08:45 General appearance: Present: cooperative, mild distress (Weakness, chills, SOB) , A&O X 3, morbidly obese, pleasant, answers questions appropriately Exam: General: Patient alert, awake, oriented 3, interactive, in no acute distress HEENT: Normocephalic, atraumatic, pupils equal reactive to light, poor dentition , oral mucosa moist, uvula midline, neck supple trachea midline no palpable lymphadenopathy, no thyromegaly. Chest: Symmetric bilateral correlating with respiratory effort, effort nonlabored. Cardiac: Regular rate and rhythm, positive S1 and S2. no bruits appreciated bilateral carotids, Radial pulses 2+ bilateral, posterior tibial and dorsal pedal pulses 2+ bilateral. Respiratory: Clear to auscultation all lung sandhu Abdomen: Soft, obese, nontender, positive bowel sounds, no palpable masses appreciated on examination Extremities: Symmetric bilateral, bilateral lower extremities demonstrate chronic venous stasis changes with hyperkeratosis of the skin. patient moving all 4 extremities spontaneously. Neurologic: No focal deficits appreciated on examination. Face symmetric, muscle strength symmetric bilateral upper and lower extremities.
[2017-09-16] MEDS ORDERED: Insulin DETEMIR 100 UNIT/ML X5UNITS SQ STA (12:29)
[2017-09-16] MEDS: Nystatin POWDER 30 GM BOTTLE TP SCH ×3 (12:31→21:14)
[2017-09-16] MEDS: Insulin LISPRO 300 UNITS/3 ML VIAL SQ SCH ×2 (12:31→18:19)
[2017-09-16 13:51] LABS: Adenovirus Not Detected (Not Detect); Coronavirus 229E Not Detected (Not Detect); Coronavirus HKU1 Not Detected (Not Detect); Coronavirus NL63 Not Detected (Not Detect); Coronavirus OC43 Not Detected (Not Detect); Human Metapneumovirus Not Detected (Not Detect); Human Rhinovirus/Enterovirus Not Detected (Not Detect); Influenza A Subtype 2009 H1 Not Detected (Not Detect); Influenza A Untypeable Not Detected (Not Detect); Influenza B Not Detected (Not Detect); Parainfluenza Virus 1 Not Detected (Not Detect)
[2017-09-16 13:52] LABS: Bordetella Pertussis Not Detected (Not Detect); Chlamydophila pneumoniae Not Detected (Not Detect); Mycoplasma pneumoniae Not Detected (Not Detect); Parainfluenza Virus 2 Not Detected (Not Detect); Parainfluenza Virus 3 Not Detected (Not Detect); Parainfluenza Virus 4 Not Detected (Not Detect); Respiratory Syncytial Virus Not Detected (Not Detect)
--- NOTE | 2017-09-16 15:39 | Internal Med Progress Note ---
<Jacek Medina - Last Filed: 09/16/17 15:37> Date of Encounter: 09/16/17 Time of Encounter: 08:30 - Assessment and plan (1) Viral URI Current Visit: Yes Status: Acute Assessment and plan: Patient complained of upper respiratory like symptoms, low-grade fever at home and increased oxygen requirements prior to admission. Denies any productive sputum or change in color of sputum. Chest x-ray did not demonstrate any acute cardiopulmonary abnormalities. Patient currently at baseline nasal cannula oxygen. - Continue nasal cannula oxygen at baseline 3 L - Continue scheduled breathing treatments and bronchodilators. - Respiratory status at baseline - Respiratory infectious panel negative (2) UTI (urinary tract infection) Current Visit: Yes Status: Acute Assessment and plan: Patient admitted with diagnosis of urinary tract infection placed on ceftriaxone. Patient denies any runny with urination or discomfort, urinalysis reviewed, no culture necessary. - Discontinue ceftriaxone Qualifiers: Urinary tract infection type: site unspecified Hematuria presence: without hematuria Qualified Code(s): N39.0 - Urinary tract infection, site not specified (3) Diabetes mellitus Current Visit: Yes Status: Chronic Assessment and plan: Patient is a type II diabetic, who states that she wears a insulin pump at home and took it off 2 days ago prior to taking a shower and felt that she did not want to bring it with her to the hospital so she left it off. Her last hemoglobin A1c was 5.8. Current glucose greater than 400. - Levemir 15 units subcutaneous daily at bedtime - High dose mealtime dosing insulin. - May need adjusting as patient has high insulin requirements at home. Qualifiers: Diabetes mellitus type: type 2 Diabetes mellitus complication status: with unspecified complications Diabetes mellitus longterm insulin use: unspecified longterm insulin use status Qualified Code(s): E11.8 - Type 2 diabetes mellitus with unspecified complications; Z79.4 - senior living (current) use of insulin; Z79.4 - senior living (current) use of insulin; Z79.4 - senior living ( current) use of insulin; Z79.4 - termite control representative (current) use of insulin (4) COPD (chronic obstructive pulmonary disease) Current Visit: Yes Status: Chronic Assessment and plan: Known history of COPD as mentioned above. - Continue 3 L nasal cannula oxygen maintaining oxygen saturations 88-93% - Continue bronchodilator therapy Qualifiers: COPD type: emphysema Emphysema type: unspecified Qualified Code(s): J43.9 - Emphysema, unspecified (5) CAD (coronary artery disease) Current Visit: Yes Status: Chronic Assessment and plan: Hx of chronic CAD w/hx of previous [place] in June 2011 and stent x1. Continue patient's aspirin therapy, Plavix, metoprolol, and Lipitor. Qualifiers: Coronary Disease-Associated Artery/Lesion type: [place] artery [place] vs. transplanted heart: [place] heart Associated angina: with stable angina Qualified Code(s): I25.118 - Atherosclerotic heart disease of [place] coronary artery with other forms of angina pectoris (6) HTN (hypertension) Current Visit: Yes Status: Chronic Assessment and plan: Continue metoprolol XL - Blood pressure appropriate. Qualifiers: Hypertension type: essential hypertension Qualified Code(s): I10 - Essential (primary) hypertension (7) Diarrhea Current Visit: Yes Status: Resolved Assessment and plan: Resolve. Qualifiers: Diarrhea type: unspecified type Qualified Code(s): R19.7 - Diarrhea, unspecified (8) DVT prophylaxis Current Visit: No Status: Acute Assessment and plan: Continue heparin subcutaneous every 8 hours - Subjective Interval history: Ms. Mark 56yo Female known history of COPD with emphysema baseline oxygen qualifications 3 L. She has been seen and evaluated patient bedside this morning. She is alert awake interactive seen that her shortness of breath has improved significantly since admission and she is tolerating 3 L nasal cannula which is her baseline. She states that she has been short of breath more so with activity while at home but improves with rest. Prior to coming in she did increase her oxygen to 4 L as she felt that it was not sufficient. She denies any productive cough, and he is to have some mild shortness of breath but denies any chest pressure or chest pain, abdominal pain nausea vomiting diarrhea constipation. She denies any change in the bilateral lower extremity edema or venous bases changes. - Constitutional Vitals: Temp Pulse Resp BP Pulse Ox 97.9 F 107 18 145/99 98 09/16/17 11:46 09/16/17 11:46 09/16/17 11:46 09/16/17 11:46 09/16/17 13:00 General appearance: Present: cooperative, mild distress (Weakness, chills, SOB) , A&O X 3, morbidly obese, pleasant, answers questions appropriately Exam: General: Patient alert, awake, oriented 3, interactive, in no acute distress HEENT: Normocephalic, atraumatic, pupils equal reactive to light, poor dentition , oral mucosa moist, uvula midline, neck supple trachea midline no palpable lymphadenopathy, no thyromegaly. Chest: Symmetric bilateral correlating with respiratory effort, effort nonlabored. Cardiac: Regular rate and rhythm, positive S1 and S2. no bruits appreciated bilateral carotids, Radial pulses 2+ bilateral, posterior tibial and dorsal pedal pulses 2+ bilateral. Respiratory: Diffuse mild wheezing, no rhonchi or rales appreciated on auscultation. Abdomen: Soft, obese, nontender, positive bowel sounds, no palpable masses appreciated on examination Extremities: Symmetric bilateral, bilateral lower extremities with 1+ edema, chronic venous stasis bilaterally with hyperkeratosis of the skin. Poor foot care and cracked soles of her feet, no visible ulcers. patient moving all 4 extremities spontaneously. Neurologic: No focal deficits appreciated on examination. Face symmetric, muscle strength symmetric bilateral upper and lower extremities. Internal Medicine: Result - Labs CBC & Chem 7: 09/16/17 00:57 09/16/17 00:57 Labs: Short CBC 09/16/17 Range/Units 00:57 WBC 9.8 (4.3-11.1) K/mcL Hgb 11.4 L (11.5-15.4) g/dL Hct 35.4 (35.3-44.9) % Plt Count 193 (140-400) K/mcL Neutrophils # 8.4 (1.6-8.9) K/mcL BMP 09/16/17 00:57 Sodium 132 L Potassium 4.3 Chloride 99 Carbon Dioxide 22 L BUN 12 Creatinine 0.79 Glucose 360 H Calcium 8.9 Liver Function 09/16/17 Range/Units 00:57 Total Bilirubin 1.2 H (0.3-1.0) mg/dL AST 8 L (13-39) Units/L ALT 5 L (7-52) Units/L Alkaline Phosphatase 77 (34-104) Units/L Albumin 3.7 (3.5-5.7) g/dL - ABG Interpretation ABG results: PT/INR, D-dimer PT 13.1 Seconds (9.4-12.1) H 09/15/17 17:41 D-Dimer 796 ng/mLFEU (0-500) H 09/16/17 00:57 Consult Discharge Plan - Plan Referrals: Jose Juan Tomas MD [Partnered Physician] - 10/14/17 11:10 am Tiffani Brewer CNP [Primary Care Provider] - 09/23/17 2:00 pm <Sukumar Gonsalez - Last Filed: 09/16/17 18:27> Date of Encounter: 09/16/17 - Assessment and plan (1) UTI (urinary tract infection) Current Visit: Yes Status: Acute Qualifiers: Urinary tract infection type: acute cystitis Hematuria presence: without hematuria Qualified Code(s): N30.00 - Acute cystitis without hematuria (2) Acute bronchitis Current Visit: Yes Status: Suspected Qualifiers: Bronchitis organism: other organism Qualified Code(s): J20.8 - Acute bronchitis due to other specified organisms (3) Sepsis Current Visit: Yes Status: Ruled-out Qualifiers: Sepsis type: sepsis due to unspecified organism Qualified Code(s): A41.9 - Sepsis, unspecified organism (4) Hyponatremia Current Visit: Yes Status: Resolved (5) HTN (hypertension) Current Visit: Yes Status: Chronic Qualifiers: Hypertension type: essential hypertension Qualified Code(s): I10 - Essential (primary) hypertension (6) Diabetes mellitus Current Visit: Yes Status: Chronic Qualifiers: Diabetes mellitus type: type 2 Diabetes mellitus complication status: with hyperglycemia Diabetes mellitus longterm insulin use: with longterm use Qualified Code(s): E11.65 - Type 2 diabetes mellitus with hyperglycemia; Z79.4 - senior living (current) use of insulin; Z79.4 - termite control representative (current) use of insulin ; Z79.4 - termite control representative (current) use of insulin; Z79.4 - termite control representative (current) use of insulin - Constitutional Vitals: Temp Pulse Resp BP Pulse Ox 97.8 F 105 18 127/58 96 09/16/17 15:41 09/16/17 15:41 09/16/17 15:41 09/16/17 15:41 09/16/17 15:41 Internal Medicine: Result - Labs CBC & Chem 7: 09/16/17 00:57 09/16/17 00:57 Labs: Short CBC 09/16/17 Range/Units 00:57 WBC 9.8 (4.3-11.1) K/mcL Hgb 11.4 L (11.5-15.4) g/dL Hct 35.4 (35.3-44.9) % Plt Count 193 (140-400) K/mcL Neutrophils # 8.4 (1.6-8.9) K/mcL BMP 09/16/17 00:57 Sodium 132 L Potassium 4.3 Chloride 99 Carbon Dioxide 22 L BUN 12 Creatinine 0.79 Glucose 360 H Calcium 8.9 Liver Function 09/16/17 Range/Units 00:57 Total Bilirubin 1.2 H (0.3-1.0) mg/dL AST 8 L (13-39) Units/L ALT 5 L (7-52) Units/L Alkaline Phosphatase 77 (34-104) Units/L Albumin 3.7 (3.5-5.7) g/dL - ABG Interpretation ABG results: PT/INR, D-dimer PT 13.1 Seconds (9.4-12.1) H 09/15/17 17:41 D-Dimer 796 ng/mLFEU (0-500) H 09/16/17 00:57 - Attending Attestation I examined this patient and my medical decision-making was reviewed with the Resident Physician on 09/16/17. I agree with the documented findings, disposition and treatment plan as described except to the extent set forth below. Ms Mark has been admitted with hyperglycemia and respiratory complaints. She remains moderate to high risk due to potential for worsening clinical status. Ms Mark is still having very high blood sugars. She still feels very congested in her chest and is coughing. No fever. No GI issues. Exam Alert. Comfortable Mucus membranes dry Heart distant Lungs with scant rhonchi Abd soft I/P 1. UTI - doubt 2. Hyperglycemia - meds adjusted Anticipate d/c tomorrow. Further diagnoses and plan as above.
[2017-09-16] MEDS: Budesonide/Formoterol 160/4.5 MDI IH SCH (20:01)
[2017-09-16] MEDS ORDERED: Insulin DETEMIR 100 UNIT/ML X5UNITS SQ SCH (21:00)
[2017-09-16] MEDS ORDERED: Insulin Human Regular 5 UNIT in 0.9 % Sodium Chloride 10 ML IV ONE (23:30)
[2017-09-17] MEDS: *HR* Heparin 5,000 UNIT/ML VIAL SQ SCH (04:17)
[2017-09-17 05:06] LABS: Basophils % 0.3 %; Eosinophils # 0.2 K/mcL (0.0-0.6); Eosinophils % 2.9 %; Hematocrit 31.4 % (35.3-44.9); Hemoglobin 10.3 g/dL (11.5-15.4); Immature Granulocytes % 0.7 % (0-4); Lymphocytes # 0.6 K/mcL (0.6-4.6); Lymphocytes % 8.7 %; Mean Corpuscular HGB Conc 32.8 g/dL (31.6-35.5); Mean Corpuscular Hemoglobin 29.5 pg (28.0-33.3); Mean Platelet Volume 10.1 fL (9.4-12.4); Monocytes # 0.6 K/mcL (0.0-1.3); Monocytes % 8.5 %; Neutrophils # 5.4 K/mcL (1.6-8.9); Platelet Count 174 K/mcL (140-400); Red Blood Count 3.49 M/mcL (3.82-4.97); Red Cell Distribution Width 14.7 % (11.5-14.5); Segmented Neutrophils % 78.9 %
[2017-09-17 05:39] LABS: Alanine Aminotransferase 9 Units/L (7-52); Albumin 3.7 g/dL (3.5-5.7); Albumin/Globulin Ratio 0.9 (1.1-2.2); Alkaline Phosphatase 71 Units/L (34-104); Aspartate Amino Transferase 7 Units/L (13-39); BUN/Creatinine Ratio 17 (6-26); Bilirubin,Total 0.8 mg/dL (0.3-1.0); Blood Urea Nitrogen 12 mg/dL (6-20); Calcium 9.2 mg/dL (8.6-10.3); Carbon Dioxide 29 mEq/L (23-29); Chloride 97 mEq/L (98-107); Globulin 4.3 g/dL (2.4-3.5); Glucose 327 mg/dL (70-105); Osmolality,Calculated 288 (280-300); Potassium 4.4 mEq/L (3.5-5.1); Sodium 133 mEq/L (136-145); eGFR For African Americans > 60 (> 60); eGFR For Non-African Americans > 60 (> 60)
[2017-09-17] MEDS: Budesonide/Formoterol 160/4.5 MDI IH SCH (07:54)
--- NOTE | 2017-09-17 07:57 | Electrocardiograph Report ---
[address] [address] Test Date: 2017-09-15 Pat Name: Cinthia Mark Department: 104 Room: 2N3 Gender: F Clinical Biochemical Geneticist: : 1960 Requested By: Baltazar Brand Order Number: [id number] Reading MD: Elieser Andrews MD Measurements Intervals [place] Rate: 116 P: 44 NV: 153 QRS: 28 QRSD: 86 T: 86 QT: 303 QTc: 372 Interpretive Statements SINUS TACHYCARDIA WITH OCCASIONAL SUPRAVENTRICULAR PREMATURE COMPLEXES BASELINE ARTIFACT Electronically Signed On 09-17-2017 7:22:19 EST by Elieser Andrews MD
[2017-09-17] MEDS: Metoprolol XL (24 HR) Succ 25 MG TAB.ER.24H PO SCH (09:01)
[2017-09-17] MEDS: Famotidine 20 MG TABLET PO SCH (09:01)
[2017-09-17] MEDS: Gabapentin 400 MG CAPSULE PO SCH ×2 (09:01→12:29)
[2017-09-17] MEDS: Insulin LISPRO 300 UNITS/3 ML VIAL SQ SCH ×2 (09:02→12:30)
[2017-09-17] MEDS: Cholecalciferol (D-3) 1,000 UNIT TABLET PO SCH (09:02)
[2017-09-17] MEDS: Aspirin 81 MG TAB.CHEW PO SCH (09:02)
[2017-09-17] MEDS: Nystatin POWDER 30 GM BOTTLE TP SCH (09:03)
[2017-09-17] MEDS: Fluticasone Propionate Nasal 50 MCG/SPRAY BOTTLE NS SCH (09:03)
[2017-09-17] MEDS ORDERED: Insulin DETEMIR 100 UNIT/ML X5UNITS SQ SCH (10:23)
--- NOTE | 2017-09-17 10:34 | Discharge Summary ---
<Jacek Medina - Last Filed: 09/17/17 10:54> Date of Encounter: 09/17/17 Time of Encounter: 10:31 - Discharge Diagnosis (1) Viral URI Priority: Primary Status: Acute (2) UTI (urinary tract infection) Priority: Primary Status: Acute Qualifiers: Urinary tract infection type: acute cystitis Hematuria presence: without hematuria Qualified Code(s): N30.00 - Acute cystitis without hematuria (3) Diabetes mellitus Priority: Secondary Status: Chronic Qualifiers: Diabetes mellitus type: type 2 Diabetes mellitus complication status: with hyperglycemia Diabetes mellitus jail insulin use: with oil field roustabout use Qualified Code(s): E11.65 - Type 2 diabetes mellitus with hyperglycemia; Z79.4 - long-term (current) use of insulin; Z79.4 - long-term (current) use of insulin ; Z79.4 - sterilization specialist (current) use of insulin; Z79.4 - long-term (current) use of insulin (4) COPD (chronic obstructive pulmonary disease) Priority: Secondary Status: Chronic Qualifiers: COPD type: emphysema Emphysema type: unspecified Qualified Code(s): J43.9 - Emphysema, unspecified (5) CAD (coronary artery disease) Priority: Secondary Status: Chronic Qualifiers: Coronary Disease-Associated Artery/Lesion type: [place] artery [place] vs. transplanted heart: [place] heart Associated angina: with stable angina Qualified Code(s): I25.118 - Atherosclerotic heart disease of [place] coronary artery with other forms of angina pectoris (6) HTN (hypertension) Priority: Secondary Status: Chronic Qualifiers: Hypertension type: essential hypertension Qualified Code(s): I10 - Essential (primary) hypertension (7) Diarrhea Priority: Secondary Status: Resolved Qualifiers: Diarrhea type: unspecified type Qualified Code(s): R19.7 - Diarrhea, unspecified (8) DVT prophylaxis Priority: Secondary Status: Acute - Discharge Medications Prescriptions: Nitrofurantoin (BID) [Macrobid] 100 mg PO BIDWM #10 capsule Nystatin POWDER [Nystop] 1 appl TP TID #1 bottle Home Medications: Albuterol Sulfate [Albuterol Inhaler] 2 puff IH Q4HR PRN 03/31/15 [History] Aspirin 81 mg PO DAILY 03/31/15 [History] Sitagliptin Phosphate [Januvia] 100 mg PO DAILY 03/31/15 [History] Albuterol Neb [Proventil Neb] 2.5 mg IH QID PRN 04/27/15 [History] Budesonide/Formoterol 160/4.5 [Symbicort] 2 puff IH BID 04/27/15 [History] Clopidogrel [Plavix] 75 mg PO DAILY 04/27/15 [History] Montelukast [Singulair] 10 mg PO QPM 04/27/15 [History] Potassium Chloride 10 meq PO DAILY 04/27/15 [History] Cholecalciferol (D-3) [Vitamin D] 2,000 unit PO DAILY 05/31/16 [History] Duloxetine HCl [Cymbalta] 60 mg PO DAILY 05/31/16 [History] Fluticasone Propionate Nasal [Flonase] 1 spray NS DAILY 05/31/16 [History] Glucagon, Human Recombinant [Glucagen] 1 mg IM AD PRN 05/31/16 [History] Ipratropium/Albuterol Neb [Duoneb] 3 ml IH Q4HR PRN 05/31/16 [History] Metoprolol XL (24 HR) Succ [Toprol Xl] 12.5 mg PO DAILY 05/31/16 [History] Nitroglycerin [Nitrostat] 0.4 mg SL AD PRN 05/31/16 [History] Ranitidine HCl [Zantac] 150 mg PO BID 05/31/16 [History] TraZODone 50 - 100 mg PO HS PRN 05/31/16 [History] Amitriptyline [Elavil] 50 mg PO HS 05/01/17 [History] Atorvastatin Calcium [Lipitor] 20 mg PO HS 05/01/17 [History] Gabapentin [Neurontin] 800 mg PO QID 05/01/17 [History] Lipase/Protease/Amylase [[place] 24,000 Units Capsule] 1 each PO AD 05/01/17 [ History] Lipase/Protease/Amylase [[place] 36,000 Units Capsule] 1 each PO TIDWM [History] Liraglutide [Victoza 2-Yovani] 1.8 mg SQ DAILY 05/01/17 [History] Tizanidine HCl [Zanaflex] 4 - 8 mg PO TID PRN 05/01/17 [History] Subcutaneous Insulin Pump [T:Slim] 1 each MC AD 09/15/17 [History] Nitrofurantoin (BID) [Macrobid] 100 mg PO BIDWM #10 capsule 09/17/17 [Rx] Nystatin POWDER [Nystop] 1 appl TP TID #1 bottle 09/17/17 [Rx] Allergies/Adverse Reactions: 3 Allergy/AdvReac Type Severity Reaction Status Date / Time prednisone Allergy Hives Verified 05/01/17 09:04 ibuprofen AdvReac See Verified 05/01/17 09:04 Comments liraglutide [From Victoza] AdvReac Vomiting Verified 05/01/17 09:04 metformin AdvReac Diarrhea Verified 05/01/17 09:04 NSAIDS (Non-Steroidal AdvReac See Verified 05/01/17 09:04 Anti-Inflamma Comments promethazine [From Phenergan] AdvReac Vomiting Verified 05/01/17 09:04 tramadol AdvReac Diarrhea Verified 05/01/17 09:04 Date of admission: 09/15/17 23:04 Primary care physician: Tiffani Brewer CNP Discharging clinician: Jacek Medina Anticipated date of discharge: 09/17/17 - Patient Status Disposition: Home, Self-Care Condition: Fair Overall status at discharge: patient is progressing back to baseline - Discharge Instructions Instructions: Nystatin (On the skin), Nitrofurantoin Combination (By mouth), Urinary Tract Infection in Women (DC) Follow Up With: Jose Juan Tomas MD [Partnered Physician] - 10/14/17 11:10 am Tiffani Brewer CNP [Primary Care Provider] - 09/23/17 2:00 pm Additional Instructions: Follow up with your PCP in the next 3-5 days Take medications as prescribed. If you have worsening of respiratory status return to the emergency department for further evaluation. - Diet and Activity Activity: increase activity as tolerated Diet: diabetic diet, low fat, low cholesterol, low salt diet Interval History: Ms. Mark is a 56 year old female with medical hx of COPD, CAD, DVT several years ago, diabetes controlled with insulin, hyperlipidemia, hypertension, previous myocardial infarction in June 2011, and syncope presents from the ED with chief complaint of generalized weakness, SOB, unsteadiness on her feet, hyperglycemia, fever, chills, nausea, vomiting, diarrhea, and feeling unwell that started on Friday. Hospital course: Ms. Mark is a 56 year old female - Time Spent with Patient Total time spent providing and/or coordinating discharge services: - Constitutional Vitals: Temp Pulse Resp BP Pulse Ox 98.6 F 96 20 159/83 94 09/17/17 07:05 09/17/17 07:05 09/17/17 07:54 09/17/17 07:05 09/17/17 07:54 General appearance: Present: cooperative, mild distress (Weakness, chills, SOB) , A&O X 3, morbidly obese, pleasant, answers questions appropriately Exam: General: Patient alert, awake, oriented 3, interactive, in no acute distress HEENT: Normocephalic, atraumatic, pupils equal reactive to light, poor dentition , oral mucosa moist, uvula midline, neck supple trachea midline no palpable lymphadenopathy, no thyromegaly. Chest: Symmetric bilateral correlating with respiratory effort, effort nonlabored. Cardiac: Regular rate and rhythm, positive S1 and S2. no bruits appreciated bilateral carotids, Radial pulses 2+ bilateral, posterior tibial and dorsal pedal pulses 2+ bilateral. Respiratory: Clear to auscultation in all lung sandhu Abdomen: Soft, obese, nontender, positive bowel sounds, no palpable masses appreciated on examination Extremities: Symmetric bilateral, bilateral lower extremities with 1+ edema, chronic venous stasis bilaterally with hyperkeratosis of the skin. Poor foot care and cracked soles of her feet, no visible ulcers. patient moving all 4 extremities spontaneously. Neurologic: No focal deficits appreciated on examination. Face symmetric, muscle strength symmetric bilateral upper and lower extremities. <Sukumar Gonsalez - Last Filed: 09/17/17 19:19> Date of Encounter: 09/17/17 - Discharge Diagnosis (1) UTI (urinary tract infection) Status: Acute Qualifiers: Urinary tract infection type: acute cystitis Hematuria presence: without hematuria Qualified Code(s): N30.00 - Acute cystitis without hematuria (2) Acute bronchitis Priority: Primary Status: Suspected Qualifiers: Bronchitis organism: other organism Qualified Code(s): J20.8 - Acute bronchitis due to other specified organisms (3) Sepsis Priority: Secondary Status: Ruled-out Qualifiers: Sepsis type: sepsis due to unspecified organism Qualified Code(s): A41.9 - Sepsis, unspecified organism (4) Hyponatremia Priority: Secondary Status: Resolved (5) HTN (hypertension) Status: Chronic Qualifiers: Hypertension type: essential hypertension Qualified Code(s): I10 - Essential (primary) hypertension (6) Diabetes mellitus Status: Chronic Qualifiers: Diabetes mellitus type: type 2 Diabetes mellitus complication status: with hyperglycemia Diabetes mellitus oil field roustabout insulin use: with jail use Qualified Code(s): E11.65 - Type 2 diabetes mellitus with hyperglycemia; Z79.4 - long-term (current) use of insulin; Z79.4 - sterilization specialist (current) use of insulin ; Z79.4 - long-term (current) use of insulin; Z79.4 - long-term (current) use of insulin (7) Tobacco abuse Priority: Secondary Status: Chronic (8) Morbid obesity with BMI of 50.0-59.9, adult Priority: Secondary Status: Chronic Date of admission: 09/15/17 23:04 Primary care physician: Tiffani Brewer CNP Hospital course: Ms. Mark is a 56 year old female - Time Spent with Patient Total time spent providing and/or coordinating discharge services: 38min - Constitutional Vitals: Temp Pulse Resp BP Pulse Ox 98.1 F 91 16 146/75 95 09/17/17 11:47 09/17/17 11:47 09/17/17 11:47 09/17/17 11:47 09/17/17 11:47 - Attending Attestation I examined this patient and my medical decision-making was reviewed with the Resident Physician on 09/17/17. I agree with the documented findings, disposition and treatment plan as described except to the extent set forth below. Ms Mark has been admitted for acute UTI and viral bronchitis. She is doing better today. She is afebrile and ready for discharge home. Exam alert. Comfortable Mucus membranes moist Heart reg No wheeze Plan D/C home today.
--- NOTE | 2017-09-17 10:54 | Physician Discharge Referral ---
<Jacek Medina - Last Filed: 09/17/17 10:52> Home Health/Hosp Referral Info Transfer to: Home Health Provider in Charge Post Discharge: PCP - Diagnosis (1) Viral URI Priority: Primary Status: Acute (2) UTI (urinary tract infection) Priority: Primary Status: Acute (3) Diabetes mellitus Priority: Secondary Status: Chronic (4) COPD (chronic obstructive pulmonary disease) Priority: Secondary Status: Chronic (5) CAD (coronary artery disease) Priority: Secondary Status: Chronic (6) HTN (hypertension) Priority: Secondary Status: Chronic (7) Diarrhea Priority: Secondary Status: Resolved (8) DVT prophylaxis Priority: Secondary Status: Acute - Respiratory Orders Oxygen / L per min (3L NC baseline) Smoking Cessation: Smoking cessation has been advised. For more information, call the [employer] Quit Line at 1-254-HCDF-NOW. - Diet/Nutrition Diet/Nutrition Orders: Cardiac - Activity Activity Orders: Ambulate - Services Needed Following services are medically necessary services: Nursing, Home Health Aide, Physical Therapy, Med Social Work - Transfer Medications Prescriptions: Nitrofurantoin (BID) [Macrobid] 100 mg PO BIDWM #10 capsule Nystatin POWDER [Nystop] 1 appl TP TID #1 bottle Home Medications: Albuterol Sulfate [Albuterol Inhaler] 2 puff IH Q4HR PRN 03/31/15 [History] Aspirin 81 mg PO DAILY 03/31/15 [History] Sitagliptin Phosphate [Januvia] 100 mg PO DAILY 03/31/15 [History] Albuterol Neb [Proventil Neb] 2.5 mg IH QID PRN 04/27/15 [History] Budesonide/Formoterol 160/4.5 [Symbicort] 2 puff IH BID 04/27/15 [History] Clopidogrel [Plavix] 75 mg PO DAILY 04/27/15 [History] Montelukast [Singulair] 10 mg PO QPM 04/27/15 [History] Potassium Chloride 10 meq PO DAILY 04/27/15 [History] Cholecalciferol (D-3) [Vitamin D] 2,000 unit PO DAILY 05/31/16 [History] Duloxetine HCl [Cymbalta] 60 mg PO DAILY 05/31/16 [History] Fluticasone Propionate Nasal [Flonase] 1 spray NS DAILY 05/31/16 [History] Glucagon, Human Recombinant [Glucagen] 1 mg IM AD PRN 05/31/16 [History] Ipratropium/Albuterol Neb [Duoneb] 3 ml IH Q4HR PRN 05/31/16 [History] Metoprolol XL (24 HR) Succ [Toprol Xl] 12.5 mg PO DAILY 05/31/16 [History] Nitroglycerin [Nitrostat] 0.4 mg SL AD PRN 05/31/16 [History] Ranitidine HCl [Zantac] 150 mg PO BID 05/31/16 [History] TraZODone 50 - 100 mg PO HS PRN 05/31/16 [History] Amitriptyline [Elavil] 50 mg PO HS 05/01/17 [History] Atorvastatin Calcium [Lipitor] 20 mg PO HS 05/01/17 [History] Gabapentin [Neurontin] 800 mg PO QID 05/01/17 [History] Lipase/Protease/Amylase [Elmira Elliott 24,000 Units Capsule] 1 each PO AD 05/01/17 [ History] Lipase/Protease/Amylase [Elmira Elliott 36,000 Units Capsule] 1 each PO TIDWM [History] Liraglutide [Victoza 2-Yovani] 1.8 mg SQ DAILY 05/01/17 [History] Tizanidine HCl [Zanaflex] 4 - 8 mg PO TID PRN 05/01/17 [History] Subcutaneous Insulin Pump [T:Slim] 1 each MC AD 09/15/17 [History] Nitrofurantoin (BID) [Macrobid] 100 mg PO BIDWM #10 capsule 09/17/17 [Rx] Nystatin POWDER [Nystop] 1 appl TP TID #1 bottle 09/17/17 [Rx] Allergies/Adverse Reactions: 3 Allergy/AdvReac Type Severity Reaction Status Date / Time prednisone Allergy Hives Verified 05/01/17 09:04 ibuprofen AdvReac See Verified 05/01/17 09:04 Comments liraglutide [From Victoza] AdvReac Vomiting Verified 05/01/17 09:04 metformin AdvReac Diarrhea Verified 05/01/17 09:04 NSAIDS (Non-Steroidal AdvReac See Verified 05/01/17 09:04 Anti-Inflamma Comments promethazine [From Phenergan] AdvReac Vomiting Verified 05/01/17 09:04 tramadol AdvReac Diarrhea Verified 05/01/17 09:04 Certification: Further, I certify that my clinical findings support that this patient is homebound (i.e. absences from home require considerable and taxing effort and are for medical reasons or taoism services or infrequently or short duration when for other reasons) because: Homebound Reason: Patient requires assistance of a person or device to safely leave home, Leaving home requires considerable and taxing effort due to condition, Severity of cardiac or pulmonary status limits activity tolerance Attestation: My signature below is to certify that this patient is under my care and that I, or nurse practitioner, or a physician's mailing machine assistant working with me, has a face-to -face encounter with this patient. <Sukumar Gonsalez - Last Filed: 09/17/17 11:07> - Diagnosis (1) UTI (urinary tract infection) Status: Acute (2) Acute bronchitis Priority: Primary Status: Suspected (3) Sepsis Priority: Secondary Status: Ruled-out (4) Hyponatremia Priority: Secondary Status: Resolved (5) HTN (hypertension) Status: Chronic (6) Diabetes mellitus Status: Chronic - Respiratory Orders Smoking Cessation: Smoking cessation has been advised. For more information, call the [place] [employer] Quit Line at 1-168-QGPB-NOW. - Services Needed Following services are medically necessary services: Occupational Therapy Certification: Further, I certify that my clinical findings support that this patient is homebound (i.e. absences from home require considerable and taxing effort and are for medical reasons or taoism services or infrequently or short duration when for other reasons) because: Attestation: My signature below is to certify that this patient is under my care and that I, or nurse practitioner, or a physician's mailing machine assistant working with me, has a face-to -face encounter with this patient.
[2017-09-17 11:50] VITALS: BP 146/75
[2017-09-17] MEDS ORDERED: Nitrofurantoin (BID) 100 MG CAPSULE PO SCH (17:00)
[2017-09-17] MEDS ORDERED: Insulin LISPRO 300 UNITS/3 ML VIAL SQ SCH (21:00)
== END 2017-09-17 15:59 | disposition home or self-care (01) | DRG 872 ==
LOC: EMEROO 13:11 → 2NENU 13:11
PROVIDERS: ADMIT Internal Medicine; ATTEND Internal Medicine

== ENCOUNTER 2018-01-23 04:41 | Inpatient (IN) ==
[2018-01-23] MEDS ORDERED: 0.9 % Sodium Chloride 500 ML IVC ONE (04:43)
--- NOTE | 2018-01-23 04:49 | Emergency Department Note ---
Disposition Clinical Impression: NSTEMI (non-ST elevated myocardial infarction) Disposition: Admitted As Inpatient Condition: Good Referrals: Tiffani Brewer CNP [Primary Care Provider] - Forms: ED Satisfaction Letter Time of Disposition: 06:13 Chest Pain HPI - General Chief Complaint: ED Chest Pain Stated Complaint: chest pain Time Seen by Provider: 01/23/18 04:43 Source: patient, EMS Mode of arrival: EMS Limitations: no limitations Vital Signs Reviewed: Yes Nursing Notes Reviewed: Yes - History of Present Illness HPI Narrative: Patient presents to the ED via EMS. The chief complaint of chest pain. Patient has a history of NSTEMI and states that a few days ago she started having her anginal equivalent. She took nitroglycerin which relieved her pain. She was pain free for 1 day and then this morning she was awoken from sleep around 3 AM with a very heavy pressure in her chest which she states "feels like an elephant was sitting on my chest". States that she got lightheaded and very hot and flushed. No nausea, vomiting or diaphoresis. She has COPD, but no increased shortness of breath from baseline. No abdominal pain Severity scale (1-10): 8 - Related Data Home Medications Medication Instructions Recorded Confirmed Albuterol Sulfate [Albuterol 2 puff IH Q4HR PRN 03/31/15 10/21/17 Inhaler] Aspirin 81 mg PO DAILY 03/31/15 10/21/17 Sitagliptin Phosphate [Januvia] 100 mg PO DAILY 03/31/15 10/21/17 Albuterol Neb [Proventil Neb] 2.5 mg IH QID PRN 04/27/15 10/21/17 Budesonide/Formoterol 160/4.5 2 puff IH BID 04/27/15 10/21/17 [Symbicort] Clopidogrel [Plavix] 75 mg PO DAILY 04/27/15 10/21/17 Montelukast [Singulair] 10 mg PO QPM 04/27/15 10/21/17 Potassium Chloride 10 meq PO DAILY 04/27/15 10/21/17 Cholecalciferol (D-3) [Vitamin D] 2,000 unit PO DAILY 05/31/16 10/21/17 Duloxetine HCl [Cymbalta] 60 mg PO DAILY 05/31/16 10/21/17 Fluticasone Propionate Nasal 1 spray NS DAILY 05/31/16 10/21/17 [Flonase] Glucagon, Human Recombinant 1 mg IM AD PRN 05/31/16 10/21/17 [Glucagen] Ipratropium/Albuterol Neb [Duoneb] 3 ml IH Q4HR PRN 05/31/16 10/21/17 Metoprolol XL (24 HR) Succ [Toprol 12.5 mg PO DAILY 05/31/16 10/21/17 Xl] Nitroglycerin [Nitrostat] 0.4 mg SL Q5M PRN 05/31/16 10/21/17 TraZODone 50 - 100 mg PO HS PRN 05/31/16 10/21/17 raNITIdine HCl [Zantac] 150 mg PO BID 05/31/16 10/21/17 Amitriptyline [Elavil] 50 mg PO HS 05/01/17 10/21/17 Atorvastatin Calcium [Lipitor] 40 mg PO HS 05/01/17 10/21/17 Gabapentin [Neurontin] 800 mg PO QID 05/01/17 10/21/17 Lipase/Protease/Amylase [Elmira Elliott 1 each PO AD 05/01/17 10/21/17 24,000 Units Capsule] Lipase/Protease/Amylase [Elmira Elliott 1 each PO TIDWM 05/01/17 10/21/17 36,000 Units Capsule] Liraglutide [Victoza 2-Yovani] 1.8 mg SQ DAILY 05/01/17 10/21/17 Tizanidine HCl [Zanaflex] 4 - 8 mg PO TID PRN 05/01/17 10/21/17 Subcutaneous Insulin Pump [T:Slim] 1 each MC AD 09/15/17 10/21/17 Pentoxifylline [TRENtal] 400 mg PO TIDWM 10/21/17 10/21/17 Previous Rx's Medication Instructions Recorded Nystatin POWDER [Nystop] 1 appl TP TID #1 bottle 09/17/17 Allergies Allergy/AdvReac Type Severity Reaction Status Date / Time prednisone Allergy Hives Verified 10/27/17 11:20 ibuprofen AdvReac See Verified 10/27/17 11:20 Comments metformin AdvReac Diarrhea Verified 10/27/17 11:20 NSAIDS (Non-Steroidal AdvReac See Verified 10/27/17 11:20 Anti-Inflamma Comments promethazine [From Phenergan] AdvReac Vomiting Verified 10/27/17 11:20 tramadol AdvReac Diarrhea Verified 10/27/17 11:20 Review of Systems: As reviewed in the HPI. All other systems reviewed are negative or normal. 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 - Social History Smoking Status: Current every day smoker Alcohol use: Reports: none Drug use: Reports: none Physical Exam CONSTITUTIONAL: [well appearing in no acute distress] SKIN: [Warm, dry, and intact without rash] EYES: [extraocular movements are grossly intact, clear conjunctiva] HENT: [Normocephalic, atraumatic, moist mucus membranes] NECK: [no obvious swelling, normal range of motion] PULMONARY: [normal chest rise and fall, no respiratory distress or stridor CARDIOVASCULAR: [regular rate, distal extremities are warm and well perfused] GASTROINSTESTINAL: [nondistended, non-tender] GENITOURINARY: [deferred] NEUROLOGIC: [normal speech, moves all extremities] MUSCULOSKELETAL: [no gross deformities, atraumatic] PSYCHIATRIC: [normal mood and affect] - General Limitations: no limitations General appearance: alert, in no apparent distress Course Course Narrative: Patient presenting with chest pain. States it is her anginal equivalent. We will check labs, EKG, chest x-ray. - Reevaluation(s) Reevaluation #1: Troponin is elevated. We will start on heparin drip and admit. Time: 05:50 - Consultations Consultation #1: I spoke with the on-call server developer Dr. Macias per hospital request. He agreed with our plan and they will see the patient in consult. Time: 06:13 Vital Signs Temperature 98.4 F 01/23/18 04:44 Pulse Rate 108 01/23/18 04:44 Respiratory Rate 20 01/23/18 04:44 Blood Pressure 155/72 01/23/18 04:44 O2 Sat by Pulse Oximetry 94 01/23/18 04:44 Temperature 98.4 F 01/23/18 04:44 Pulse Rate 96 01/23/18 05:42 Respiratory Rate 20 01/23/18 05:42 Blood Pressure 130/65 01/23/18 05:42 O2 Sat by Pulse Oximetry 95 01/23/18 05:42 Oxygen Delivery Oxygen Delivery Room Air Chest Pain - Medical Records Medical records reviewed: Yes I reviewed the patient's medical records. - Lab Data Lab results reviewed: Yes I reviewed the patient's lab results. Result diagrams: 01/23/18 05:05 01/23/18 05:05 Lab Results 01/23/18 01/23/18 Range/Units 05:05 05:05 WBC 7.3 (4.3-11.1) K/mcL RBC 4.27 (3.82-4.97) M/mcL Hgb 12.8 (11.5-15.4) g/dL Hct 38.8 (35.3-44.9) % MCV 90.9 (83.0-100.0) fL MCH 30.0 (28.0-33.3) pg MCHC 33.0 (31.6-35.5) g/dL RDW 14.4 (11.5-14.5) % Plt Count 195 (140-400) K/mcL MPV 10.5 (9.4-12.4) fL Immature Gran % 0.4 (0-4) % Seg Neutrophils % 68.0 % Lymphocytes % 21.8 % Monocytes % 5.9 % Eosinophils % 3.4 % Basophils % 0.5 % Neutrophils # 5.0 (1.6-8.9) K/mcL Lymphocytes # 1.6 (0.6-4.6) K/mcL Monocytes # 0.4 (0.0-1.3) K/mcL Eosinophils # 0.3 (0.0-0.6) K/mcL Basophils # 0.0 (0.0-0.2) K/mcL Sodium 138 (136-145) mEq/L Potassium 4.4 (3.5-5.1) mEq/L Chloride 103 (98-107) mEq/L Carbon Dioxide 24 (23-29) mEq/L BUN 17 (6-20) mg/dL Creatinine 0.77 (0.60-1.20) mg/dL Est GFR ( Amer) > 60 (> 60) Est GFR (Non-Af Amer) > 60 (> 60) BUN/Creatinine Ratio 22 (6-26) Glucose 364 H (70-105) mg/dL Calculated Osmolality 302 H (280-300) Calcium 9.3 (8.6-10.3) mg/dL Troponin I 0.20 H* (< 0.04) ng/mL - Radiology Data Radiology results reviewed: Yes I reviewed the patient's radiology results. - EKG Data EKG attestation: Yes I reviewed and interpreted this EKG. EKG results narrative: Sinus rhythm, rate 100, DE interval 117, QRS 86, QTC 396, normal axis, no ischemic changes
[2018-01-23 05:20] LABS: Basophils % 0.5 %; Eosinophils # 0.3 K/mcL (0.0-0.6); Eosinophils % 3.4 %; Hematocrit 38.8 % (35.3-44.9); Hemoglobin 12.8 g/dL (11.5-15.4); Immature Granulocytes % 0.4 % (0-4); Lymphocytes # 1.6 K/mcL (0.6-4.6); Lymphocytes % 21.8 %; Mean Corpuscular Volume 90.9 fL (83.0-100.0); Mean Platelet Volume 10.5 fL (9.4-12.4); Monocytes # 0.4 K/mcL (0.0-1.3); Monocytes % 5.9 %; Platelet Count 195 K/mcL (140-400); Red Blood Count 4.27 M/mcL (3.82-4.97); Red Cell Distribution Width 14.4 % (11.5-14.5)
[2018-01-23 05:44] LABS: BUN/Creatinine Ratio 22 (6-26); Blood Urea Nitrogen 17 mg/dL (6-20); Calcium 9.3 mg/dL (8.6-10.3); Carbon Dioxide 24 mEq/L (23-29); Chloride 103 mEq/L (98-107); Glucose 364 mg/dL (70-105); Osmolality,Calculated 302 (280-300); Potassium 4.4 mEq/L (3.5-5.1); Sodium 138 mEq/L (136-145); eGFR For African Americans > 60 (> 60); eGFR For Non-African Americans > 60 (> 60)
[2018-01-23] MEDS ORDERED: *HR* Heparin 5,000 UNIT/ML VIAL IVP ONE (05:49)
[2018-01-23] MEDS ORDERED: Heparin 25,000 UNIT/500 ML D5W 25,000 UNIT/500 ML BAG IVC SCH (06:00)
--- NOTE | 2018-01-23 06:39 | Emergency Department Note ---
Disposition Clinical Impression: NSTEMI (non-ST elevated myocardial infarction) Disposition: Admitted As Inpatient Condition: Good General Adult HPI - General Chief complaint: ED Chest Pain Stated complaint: chest pain Time Seen by Provider: 01/23/18 04:43 Source: patient, EMS Mode of arrival: EMS Limitations: no limitations - History of Present Illness Pain Scale: 8 - Related Data Home Medications Medication Instructions Recorded Confirmed Albuterol Sulfate [Albuterol 2 puff IH Q4HR PRN 03/31/15 10/21/17 Inhaler] Aspirin 81 mg PO DAILY 03/31/15 10/21/17 Sitagliptin Phosphate [Januvia] 100 mg PO DAILY 03/31/15 10/21/17 Albuterol Neb [Proventil Neb] 2.5 mg IH QID PRN 04/27/15 10/21/17 Budesonide/Formoterol 160/4.5 2 puff IH BID 04/27/15 10/21/17 [Symbicort] Clopidogrel [Plavix] 75 mg PO DAILY 04/27/15 10/21/17 Montelukast [Singulair] 10 mg PO QPM 04/27/15 10/21/17 Potassium Chloride 10 meq PO DAILY 04/27/15 10/21/17 Cholecalciferol (D-3) [Vitamin D] 2,000 unit PO DAILY 05/31/16 10/21/17 Duloxetine HCl [Cymbalta] 60 mg PO DAILY 05/31/16 10/21/17 Fluticasone Propionate Nasal 1 spray NS DAILY 05/31/16 10/21/17 [Flonase] Glucagon, Human Recombinant 1 mg IM AD PRN 05/31/16 10/21/17 [Glucagen] Ipratropium/Albuterol Neb [Duoneb] 3 ml IH Q4HR PRN 05/31/16 10/21/17 Metoprolol XL (24 HR) Succ [Toprol 12.5 mg PO DAILY 05/31/16 10/21/17 Xl] Nitroglycerin [Nitrostat] 0.4 mg SL Q5M PRN 05/31/16 10/21/17 TraZODone 50 - 100 mg PO HS PRN 05/31/16 10/21/17 raNITIdine HCl [Zantac] 150 mg PO BID 05/31/16 10/21/17 Amitriptyline [Elavil] 50 mg PO HS 05/01/17 10/21/17 Atorvastatin Calcium [Lipitor] 40 mg PO HS 05/01/17 10/21/17 Gabapentin [Neurontin] 800 mg PO QID 05/01/17 10/21/17 Lipase/Protease/Amylase [Elmira Elliott 1 each PO AD 05/01/17 10/21/17 24,000 Units Capsule] Lipase/Protease/Amylase [Elmira Elliott 1 each PO TIDWM 05/01/17 10/21/17 36,000 Units Capsule] Liraglutide [Victoza 2-Yovani] 1.8 mg SQ DAILY 05/01/17 10/21/17 Tizanidine HCl [Zanaflex] 4 - 8 mg PO TID PRN 05/01/17 10/21/17 Subcutaneous Insulin Pump [T:Slim] 1 each MC AD 09/15/17 10/21/17 Pentoxifylline [TRENtal] 400 mg PO TIDWM 10/21/17 10/21/17 Previous Rx's Medication Instructions Recorded Nystatin POWDER [Nystop] 1 appl TP TID #1 bottle 09/17/17 Allergies Allergy/AdvReac Type Severity Reaction Status Date / Time prednisone Allergy Hives Verified 10/27/17 11:20 ibuprofen AdvReac See Verified 10/27/17 11:20 Comments metformin AdvReac Diarrhea Verified 10/27/17 11:20 NSAIDS (Non-Steroidal AdvReac See Verified 10/27/17 11:20 Anti-Inflamma Comments promethazine [From Phenergan] AdvReac Vomiting Verified 10/27/17 11:20 tramadol AdvReac Diarrhea Verified 10/27/17 11:20 Past Medical History - Past Medical History Medical history: Reports: cancer, COPD, coronary artery disease, DVT, diabetes, hyperlipidemia, hypertension, myocardial infarction, syncope Surgical history: Reports: cholecystectomy Psychiatric history: Reports: bipolar, depression [employer]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 - Social History Smoking Status: Current every day smoker Smokeless Tobacco Status: No Alcohol use: Reports: none Drug use: Reports: none Physical Exam - General Limitations: no limitations General appearance: alert, in no apparent distress Course Vital Signs Temperature 98.4 F 01/23/18 04:44 Pulse Rate 108 01/23/18 04:44 Respiratory Rate 20 01/23/18 04:44 Blood Pressure 155/72 01/23/18 04:44 O2 Sat by Pulse Oximetry 94 01/23/18 04:44 Temperature 98.4 F 01/23/18 04:44 Pulse Rate 96 01/23/18 05:42 Respiratory Rate 20 01/23/18 05:42 Blood Pressure 130/65 01/23/18 05:42 O2 Sat by Pulse Oximetry 95 01/23/18 05:42 Oxygen Delivery Oxygen Delivery Room Air Medical Decision Making - Lab Data Result diagrams: 01/23/18 05:05 01/23/18 05:05 Lab Results 01/23/18 01/23/18 Range/Units 05:05 05:05 WBC 7.3 (4.3-11.1) K/mcL RBC 4.27 (3.82-4.97) M/mcL Hgb 12.8 (11.5-15.4) g/dL Hct 38.8 (35.3-44.9) % MCV 90.9 (83.0-100.0) fL MCH 30.0 (28.0-33.3) pg MCHC 33.0 (31.6-35.5) g/dL RDW 14.4 (11.5-14.5) % Plt Count 195 (140-400) K/mcL MPV 10.5 (9.4-12.4) fL Immature Gran % 0.4 (0-4) % Seg Neutrophils % 68.0 % Lymphocytes % 21.8 % Monocytes % 5.9 % Eosinophils % 3.4 % Basophils % 0.5 % Neutrophils # 5.0 (1.6-8.9) K/mcL Lymphocytes # 1.6 (0.6-4.6) K/mcL Monocytes # 0.4 (0.0-1.3) K/mcL Eosinophils # 0.3 (0.0-0.6) K/mcL Basophils # 0.0 (0.0-0.2) K/mcL Sodium 138 (136-145) mEq/L Potassium 4.4 (3.5-5.1) mEq/L Chloride 103 (98-107) mEq/L Carbon Dioxide 24 (23-29) mEq/L BUN 17 (6-20) mg/dL Creatinine 0.77 (0.60-1.20) mg/dL Est GFR ( Amer) > 60 (> 60) Est GFR (Non-Af Amer) > 60 (> 60) BUN/Creatinine Ratio 22 (6-26) Glucose 364 H (70-105) mg/dL Calculated Osmolality 302 H (280-300) Calcium 9.3 (8.6-10.3) mg/dL Troponin I 0.20 H* (< 0.04) ng/mL Attestation Statement - Attestation Attestation: I examined this patient and my medical decision-making was reviewed with the Resident Physician. I agree with the documented findings, disposition and treatment plan as described except to the extent set forth below. 57-year-old female presents ED because of chest pain. She had substernal chest discomfort. Her back associated with nausea and diaphoresis. Pain is similar to what she had 2011 when she had myocardial infarction. Also complains of increasing exertional dyspnea over the past 2 weeks. Increasing peripheral edema. No fevers or chills. No productive cough. Morbidly obese female who is awake alert. Talkative. Interactive. Oropharynx clear extremities warm and moist. Neck is supple. No JVD. Chest clear to auscultation bilaterally. Chest wall nontender. Cardiac exam regular. Abdomen soft, nondistended and nontender to palpation. Extremities warm and dry with bilateral pitting edema. EKG with no acute changes. Chest x-ray unremarkable. Initial troponin is elevated. Given her presentation, history and apparent NSTEMI, case was discussed with on-call cardiology and she will be started on heparin and admitted to the hospital. The high probability of a clinically significant, sudden or life threatening deterioration of the [cardiovascular] system(s) required my full and direct attention, intervention and personal management. The aggregate critical care time was [31] minutes. This time is in addition to time spent performing reported procedures but includes the following: [x] Data Review and interpretation [x] Patient assessment and monitoring of vital signs [x] Documentation [x] Medication orders and management
[2018-01-23 06:40] LABS: INR 0.9; Prothrombin Time 9.9 Seconds (9.4-12.1)
[2018-01-23 06:42] LABS: Activated Partial Thrombo Time 29.4 Seconds (26.0-36.0)
[2018-01-23] MEDS ORDERED: *HR* OxyCODONE Immed Rel 5 MG TABLET PO PRN (09:01)
[2018-01-23] MEDS ORDERED: *HR* Promethazine 25 MG/ML VIAL IVP PRN (09:01)
[2018-01-23] MEDS ORDERED: *HR* HYDROcodone/Acet 5/325 mg TABLET PO PRN (09:01)
[2018-01-23] MEDS ORDERED: Naloxone 0.4 MG/ML INJ IVP PRN (09:01)
[2018-01-23] MEDS ORDERED: Ondansetron 4 MG/2 ML VIAL IVP PRN (09:01)
[2018-01-23] MEDS ORDERED: Albuterol 2.5 MG/3 ML NEBULIZER IH PRN (09:04)
[2018-01-23] MEDS ORDERED: Ipratropium/Albuterol Neb 3 ML IH PRN (09:04)
[2018-01-23] MEDS ORDERED: D5% in Water 1,000 ML IVC PRN (09:07)
[2018-01-23] MEDS ORDERED: Dextrose Gel 15 GM/37.5 ML TUBE PO PRN ×2 (09:07)
[2018-01-23] MEDS ORDERED: *HR* Dextrose 50 % in Water (Syg) 50 ML SYRINGE IVP PRN (09:07)
--- NOTE | 2018-01-23 09:08 | Cardiology Consult Note ---
<Miriam Soto Shannon - Last Filed: 01/23/18 10:16> Date of Encounter: 01/23/18 Time of Encounter: 08:30 Assessment and Plan (1) NSTEMI (non-ST elevated myocardial infarction) Status: Acute Patient presented with typical chest pain symptoms. Initial troponin 0.20, no significant ST/T wave abnormalities noted. Chest pain free upon my exam. Given ASA 324 mg en route in EMS. On Heparin gtt. Start asa, statin, BB. Check echocardiogram. Cardiac rehab. Recommend [facility] with possible PCI; alternatives, risks, and benefits discussed, she is agreeable to proceed. Will further review with Dr. Chapman. Further recommendations after testing. (2) CAD (coronary artery disease) Status: Chronic Hx of CAD s/p PCI. Last [facility] 2016--medical management recommended, small vessel disease described. Plan as above. Asa, statin, BB, plavix. Qualifiers: Coronary Disease-Associated Artery/Lesion type: [place] artery [place] vs. transplanted heart: [place] heart Associated angina: with unstable angina Qualified Code(s): I25.110 - Atherosclerotic heart disease of [place] coronary artery with unstable angina pectoris (3) Tobacco abuse Status: Chronic 0.5 ppd. Has interest in quitting. Tobacco cessation counseling. (4) Morbid obesity with BMI of 50.0-59.9, adult Status: Chronic Lifestyle modifications necessary. Discussion w patient/family: The assessment and plan as outlined above was discussed with the patient and/or family members who expressed understanding and agreement. All questions were answered. Thank you for involving us in the care of your patient. Please call with any questions. The patient will be discussed and reviewed with Dr. Chapman; changes to be made accordingly. History of Present Illness Consult date: 01/23/18 Requesting physician: Alfonso Valdez Consult reason: NSTEMI Chief complaint: Chest pain History of present illness: Ms. Mark is a 57 year old female with PMHx significant for CAD s/p PCI, DMII, HTN, HLD, tobacco abuse, and COPD who presented to the ED this morning after sudden onset of chest pressure that started around 3 AM. Describes discomfort as "elephant sitting on chest," pain was non-radiating. Symptoms lasted for nearly an hour, improved with NTG tabs and aspirin. Reports similar episode 2 days prior that started at rest, resolved after she took SL NTG tab. Reports symptoms similar to prior MA, however were more severe. Upon arrival to ED, initial troponin was 0.20. No acute ST/T wave abnormalities on ECG. Prior CV testing: TTE 11/02/15: LVEF 60%, no significant valvular dysfunction, poor quality study [facility] 09/2015: Non-obstructive CAD; small vessel CAD described; medical management recommended--25% pLAD; 25% pLCx, 90% 1st OM (small vessel, appearance of recanalized PLAN CONSULTANT); 20% ramus; pRCA 15% ISR; 50% mRCA (FFR 0.84, 0.82, 0.81); 20% dRCA Past Med Surg Social Fam HX - Past Medical History Attestation: Yes The following information was validated with the patient. Source: patient Medical history: cancer, COPD, coronary artery disease, diabetes, hyperlipidemia , hypertension, myocardial infarction, syncope Additional medical history: "vagina area cancer" Psychiatric history: bipolar, depression - Past Surgical History Surgical History: angioplasty/stent, cholecystectomy Additional surgical history: carpal tunnel surgery, - Social History Smoking Status: Current every day smoker Packs per day: 0.5 ppd Smokeless Tobacco Status: No Alcohol use: none Drug use: none - Family History Sister Family Member Ethnicity: Non- Living Status: Hx Family Respiratory Disorders: Yes (COPD) Hx Family Cancer: Yes (Lung cancer) Mother Family Member Ethnicity: Non- Living Status: Father Adopted: No Family Member Ethnicity: Non- Living Status: Medications and Allergies Cholecalciferol (D-3) [Vitamin D] 2,000 unit PO DAILY 05/31/16 [History] Metoprolol XL (24 HR) Succ [Toprol Xl] 12.5 mg PO DAILY 05/31/16 [History] Nitroglycerin [Nitrostat] 0.4 mg SL Q5M PRN 05/31/16 [History] Atorvastatin Calcium [Lipitor] 40 mg PO HS 05/01/17 [History] Gabapentin [Neurontin] 800 mg PO QID 05/01/17 [History] Liraglutide [Victoza 2-Yovani] 1.8 mg SQ DAILY 05/01/17 [History] Subcutaneous Insulin Pump [T:Slim] 1 each MC AD 09/15/17 [History] Cyclobenzaprine [Flexeril] 10 mg PO TID PRN 01/23/18 [History] Insulin Regular U-500 [HumuLIN R U-500] 60 unit SQ DAILY 01/23/18 [History] Potassium Chloride [K-Tab ER] 10 meq PO DAILY 01/23/18 [History] Albuterol Neb [Proventil Neb] 2.5 mg IH QID PRN inhsol 01/24/18 [Rx] Albuterol Sulfate [Albuterol Inhaler] 2 puff IH Q4HR PRN inhaler 01/24/18 [Rx] Amitriptyline [Elavil] 50 mg PO HS tablet 01/24/18 [Rx] Aspirin 81 mg PO DAILY tab.chew 01/24/18 [Rx] Budesonide/Formoterol 160/4.5 [Symbicort 160/4.5] 2 puff IH BID inhaler [Rx] DULoxetine [Cymbalta] 60 mg PO DAILY capsule. 01/24/18 [Rx] Famotidine [Pepcid] 40 mg PO DAILY tablet 01/24/18 [Rx] Fluticasone Propionate Nasal [Flonase] 50 mcg NS DAILY bottle 01/24/18 [Rx] Ipratropium/Albuterol Neb [Duoneb] 3 ml IH Q4HR PRN inhsol 01/24/18 [Rx] Lipase/Protease/Amylase [[place] 6,000 Units Capsule] 6 each PO TIDWM capsule. 01/24/18 [Rx] Montelukast [Singulair] 10 mg PO QPM tablet 01/24/18 [Rx] Pentoxifylline [TRENtal] 400 mg PO TIDWM tablet.er 01/24/18 [Rx] Ticagrelor [Brilinta] 90 mg PO BID #60 tablet 01/24/18 [Rx] 3 Allergy/AdvReac Type Severity Reaction Status Date / Time prednisone Allergy Hives Verified 01/23/18 07:42 ibuprofen AdvReac See Verified 01/23/18 07:42 Comments metformin AdvReac Diarrhea Verified 01/23/18 07:42 NSAIDS (Non-Steroidal AdvReac See Verified 01/23/18 07:42 Anti-Inflamma Comments promethazine [From Phenergan] AdvReac Vomiting Verified 01/23/18 07:42 tramadol AdvReac Diarrhea Verified 01/23/18 07:42 All Systems Review: The remainder of the systems were reviewed and are negative - Cardiovascular Cardiovascular: as per HPI Physical Examination Vital Signs, Last 4 Hours Temp Pulse Resp BP Pulse Ox 01/23/18 08:06 98.3 F 91 15 138/76 92 01/23/18 07:14 104 18 146/71 95 General: Conversant, No Apparent Distress, Other (morbidly obese) Cardiac: Reg Rate and Rhythm, Normal S1 and S2 Lungs: Normal Breath Sounds Neuro: Alert and responsive Abdomen: Soft Skin: No rashes noted on visualized skin Musculoskeletal: No Chest Wall Tenderness Extremities: Other (non-pitting LE edema. ) Results 01/23/18 05:05 01/23/18 05:05 Active Medications Hydrocodone Bitart/Acetaminophen ([place] 5-325 Mg) 1 tab PO Q6HR PRN PRN Reason: Moderate Pain Stop: 07/25/18 09:02 Albuterol Sulfate (Proventil Neb) 2.5 mg IH QID PRN; Protocol PRN Reason: Shortness Of Breath Stop: 07/25/18 09:05 Albuterol Sulfate (Albuterol Inhaler) 2 puff IH Q4HR PRN PRN Reason: Shortness Of Breath Stop: 07/25/18 09:05 Albuterol/Ipratropium (Duoneb) 3 ml IH Q4HR PRN PRN Reason: Shortness Of Breath Stop: 07/25/18 09:05 Amitriptyline HCl (Elavil) 50 mg PO HS SEAN Stop: 07/25/18 21:01 Aspirin (Aspirin) 81 mg PO DAILY SEAN Stop: 07/26/18 09:01 Budesonide/Formoterol Fumarate (Symbicort) 2 puff IH BID SEAN PRN Reason: Protocol Stop: 07/25/18 21:01 Clopidogrel Bisulfate (Plavix) 75 mg PO DAILY SEAN Stop: 07/25/18 09:16 Dextrose/Water (Dextrose 50% (Syg)) 25 ml IVP AD PRN PRN Reason: Hypoglycemia Stop: 07/25/18 09:08 Docusate Sodium (Colace) 100 mg PO BID PRN PRN Reason: Constipation Stop: 07/25/18 21:01 Fluticasone Propionate (Flonase) 50 mcg NS DAILY SEAN PRN Reason: Protocol Stop: 07/26/18 09:01 Glucagon (Glucagen) 1 mg IM ONCE PRN PRN Reason: Hypoglycemia Stop: 07/25/18 09:08 Glucose (Gluctose) 15 gm PO ONCE PRN PRN Reason: Hypoglycemia Stop: 07/25/18 09:08 Glucose (Gluctose) 30 gm PO ONCE PRN PRN Reason: Hypoglycemia Stop: 07/25/18 09:08 Heparin Sodium/Dextrose (Heparin 25,000 Unit/500 Ml D5w) 25,000 unit in 500 mls @ 19.942 mls/hr IVC .Q24H SEAN; 5.8 UNIT/KG/HR PRN Reason: Protocol Stop: 07/25/18 06:01 Last Admin: 01/23/18 07:12 Dose: 5.8 unit/kg/hr, 19.942 mls/hr Dextrose (Dextrose 5%) 1,000 mls @ 100 mls/hr IVC .Q10H PRN PRN Reason: HYPOGLYCEMIA Stop: 07/25/18 09:08 Insulin Detemir (Levemir) 20 unit SQ BID [facility] Stop: 07/25/18 21:01 Insulin Human Lispro (Humalog) 0 units SQ HS [facility] PRN Reason: Protocol Stop: 07/25/18 21:01 Insulin Human Lispro (Humalog) 0 units SQ TIDAC [facility] PRN Reason: Protocol Stop: 07/25/18 11:31 Metoprolol Succinate (Toprol Xl) 12.5 mg PO DAILY [facility] Stop: 07/26/18 09:01 Montelukast Sodium (Singulair) 10 mg PO QPM [facility] Stop: 07/25/18 18:01 Naloxone HCl (Narcan) 0.4 mg IVP Q2MIN PRN PRN Reason: SEE COMMENTS Stop: 07/25/18 09:02 Non-Formulary Medication (Atorvastatin Calcium [Lipitor]) 40 mg PO HS [facility] Stop: 07/25/18 21:01 Non-Formulary Medication (Duloxetine Hcl [Cymbalta]) 60 mg PO DAILY [facility] Stop: 07/25/18 09:16 Non-Formulary Medication (Gabapentin [Neurontin]) 800 mg PO QID [facility] Stop: 07/25/18 13:01 Non-Formulary Medication (Lipase/Protease/Amylase [Creon Dr 24,000 Units Capsule ]) 1 each PO AD SEAN Stop: 07/25/18 09:16 Non-Formulary Medication (Lipase/Protease/Amylase [Creon Dr 36,000 Units Capsule ]) 1 each PO TIDWM SEAN Stop: 07/25/18 12:01 Non-Formulary Medication (Ranitidine Hcl [Zantac]) 150 mg PO BID [facility] Stop: 07/25/18 21:01 Ondansetron HCl (Zofran) 4 mg IVP Q6HR PRN PRN Reason: Nausea And Vomiting Stop: 07/25/18 09:02 Oxycodone HCl (Roxicodone) 10 mg PO Q6HR PRN PRN Reason: Severe Pain Stop: 07/25/18 09:02 Pentoxifylline (Trental) 400 mg PO TIDWM SEAN Stop: 07/25/18 12:01 Promethazine HCl (Phenergan) 12.5 mg IVP Q6HR PRN PRN Reason: Nausea And Vomiting Stop: 07/25/18 09:02 Vitamin D (Vitamin D) 2,000 unit PO DAILY [facility] Stop: 07/26/18 09:01 - Imaging and Cardiology Echo: pending, report reviewed Cardiac cath: report reviewed - EKG Interpretation EKG results cardiology: personally reviewed Consult Discharge Plan - Plan Referrals: Kamaljit Llanes DO [Partnered Physician] - 01/27/18 3:50 pm Harley Marrero DPM [Partnered Physician] - 02/02/18 4:15 pm Adenike East PEGGER [Advanced Practice Nurse] - 01/30/18 10:00 am Prescriptions: Ticagrelor [Brilinta] 90 mg PO BID #60 tablet <Yosvany Chapman - Last Filed: 01/25/18 15:26> Date of Encounter: 01/23/18 Time of Encounter: 11:05 - Attending Attestation I have personally performed a face to face evaluation on this patient. I have reviewed and agree with the care plan. History and Exam by me shows: CC: Chest pain Pt reports sudden onset mid sternal and mid epigastric chest pain, pressure sensation,9/10 at most severe, occurred at rest, awakening her from sleep at 3 am, associated with nausea, shortness of breath and diaphoresis, lasting over an hour, improved with two sl ntg and two ASA, Pt reports this was the second episode in three days, first occurred also at rest, not as severe at 6/10, lasted five minutes before took sl ntg with pain relief within three minutes. She has an extensive hx of CAD, previous [facility] 09/2015 with non obstructive CAD at that time, most severe lesion 50% mid RCA with FFR 0.81. ROS: agree with above PE: pt seen and examined, agree with findings above as documented. IMP/Plan: 1. NSTEMI: positive troponin elevations peaked at 0.20, no acute EKG changes, recomend LHC/possible PCI, risks and benefits discussed, pt agrees to proceed, will arrange for [facility] later today 2. CAD. - Moderate non obstructive CAD at [facility] 2015 3. Tobacco abuse against medical advice, reviewed recs for smoking cessation. Assessment and Plan Discussion w patient/family: The assessment and plan as outlined above was discussed with the patient and/or family members who expressed understanding and agreement. All questions were answered. Thank you for involving us in the care of your patient. Please call with any questions. History of Present Illness History of present illness: Ms. Mark is a 57 year old female All Systems Review: The remainder of the systems were reviewed and are negative Results 01/24/18 04:12 01/24/18 04:12
[2018-01-23] MEDS ORDERED: NON-FORMULARY MEDICATION 1 EACH EACH (Lipase/Protease/Amylase [Creon Dr 24,000 Units Capsu PO SCH (09:15)
--- NOTE | 2018-01-23 09:47 | Internal Med History&Physical ---
Date of Encounter: 01/23/18 Time of Encounter: 08:30 Internal Medicine - H&P: HPI Chief complaint: Chest pain Admitted From: Emergency Dept Plans for Post Hospital Care: Home History of present illness: Ms. Mark is a 57 year old female with PMHx significant for CAD s/p PCI, DMII, HTN, HLD, tobacco abuse, and COPD, chronic hypoxic resp failure uses 3 lit O2 at bed time and as needed during day time presented to ER with chest pain since last night. Pt stated her CP is like tightness someone sitting on her chest, 5/ 10 in severity, non radiating and got minimal relive with Nitro at home. She had similar episode of CP 2 days ago , which got improved with SL Nitro. Her initial troponin was 0.20. No acute ST/T changes on ECG. Pt denied any active CP now. She is currently on Heparin gtt only. Past Med Surg Social Fam HX - Past Medical History Medical history: cancer, COPD, coronary artery disease, diabetes, hyperlipidemia , hypertension, myocardial infarction, syncope Additional medical history: "vagina area cancer" Psychiatric history: bipolar, depression - Past Surgical History Surgical History: angioplasty/stent, cholecystectomy Additional surgical history: carpal tunnel surgery, - Social History Smoking Status: Current every day smoker Packs per day: 0.5 ppd Smokeless Tobacco Status: No Alcohol use: none Drug use: none - Family History Sister Family Member Ethnicity: Non- Living Status: Hx Family Respiratory Disorders: Yes (COPD) Hx Family Cancer: Yes (Lung cancer) Mother Family Member Ethnicity: Non- Living Status: Father Adopted: No Family Member Ethnicity: Non- Living Status: Internal Medicine - H&P: Meds Albuterol Sulfate [Albuterol Inhaler] 2 puff IH Q4HR PRN 03/31/15 [History] Aspirin 81 mg PO DAILY 03/31/15 [History] Sitagliptin Phosphate [Januvia] 100 mg PO DAILY 03/31/15 [History] Albuterol Neb [Proventil Neb] 2.5 mg IH QID PRN 04/27/15 [History] Budesonide/Formoterol 160/4.5 [Symbicort] 2 puff IH BID 04/27/15 [History] Clopidogrel [Plavix] 75 mg PO DAILY 04/27/15 [History] Montelukast [Singulair] 10 mg PO QPM 04/27/15 [History] Potassium Chloride 10 meq PO DAILY 04/27/15 [History] Cholecalciferol (D-3) [Vitamin D] 2,000 unit PO DAILY 05/31/16 [History] Duloxetine HCl [Cymbalta] 60 mg PO DAILY 05/31/16 [History] Fluticasone Propionate Nasal [Flonase] 1 spray NS DAILY 05/31/16 [History] Glucagon, Human Recombinant [Glucagen] 1 mg IM AD PRN 05/31/16 [History] Ipratropium/Albuterol Neb [Duoneb] 3 ml IH Q4HR PRN 05/31/16 [History] Metoprolol XL (24 HR) Succ [Toprol Xl] 12.5 mg PO DAILY 05/31/16 [History] Nitroglycerin [Nitrostat] 0.4 mg SL Q5M PRN 05/31/16 [History] TraZODone 50 - 100 mg PO HS PRN 05/31/16 [History] raNITIdine HCl [Zantac] 150 mg PO BID 05/31/16 [History] Amitriptyline [Elavil] 50 mg PO HS 05/01/17 [History] Atorvastatin Calcium [Lipitor] 40 mg PO HS 05/01/17 [History] Gabapentin [Neurontin] 800 mg PO QID 05/01/17 [History] Lipase/Protease/Amylase [[place] 24,000 Units Capsule] 1 each PO AD 05/01/17 [ History] Lipase/Protease/Amylase [[place] 36,000 Units Capsule] 1 each PO TIDWM [History] Liraglutide [Victoza 2-Yovani] 1.8 mg SQ DAILY 05/01/17 [History] Tizanidine HCl [Zanaflex] 4 - 8 mg PO TID PRN 05/01/17 [History] Subcutaneous Insulin Pump [T:Slim] 1 each MC AD 09/15/17 [History] Nystatin POWDER [Nystop] 1 appl TP TID #1 bottle 09/17/17 [Rx] Pentoxifylline [TRENtal] 400 mg PO TIDWM 10/21/17 [History] 3 Allergy/AdvReac Type Severity Reaction Status Date / Time prednisone Allergy Hives Verified 01/23/18 07:42 ibuprofen AdvReac See Verified 01/23/18 07:42 Comments metformin AdvReac Diarrhea Verified 01/23/18 07:42 NSAIDS (Non-Steroidal AdvReac See Verified 01/23/18 07:42 Anti-Inflamma Comments promethazine [From Phenergan] AdvReac Vomiting Verified 01/23/18 07:42 tramadol AdvReac Diarrhea Verified 01/23/18 07:42 All Systems PM: A 10-system review of systems was performed and is negative for pertinent findings except as documented above in the HPI. Review of systems: All the systems are reviewed everything is benign except the systems and symptoms I mentioned in the history of present illness - Constitutional Vitals: Temp Pulse Resp BP Pulse Ox 98.3 F 91 15 138/76 92 01/23/18 08:06 01/23/18 08:06 01/23/18 08:06 01/23/18 08:06 01/23/18 08:06 General appearance: Present: A&O X 3, no acute distress, answers questions appropriately - Head Head exam: Present: atraumatic, normal inspection - Neck Neck exam general surgery: Present: supple - Respiratory Respiratory exam: Present: decreased breath sounds. Absent: rales, respiratory distress, rhonchi, wheezes - Cardiovascular Cardiovascular exam: Present: RRR, +S1, +S2. Absent: tachycardia - GI/Abdominal GI/Abdominal exam: Present: normal bowel sounds, soft. Absent: rebound, rigid, tenderness - Extremities Exam Extremities exam: Absent: calf tenderness, pedal edema, tenderness - Back Exam Back exam: Absent: CVA tenderness (L), CVA tenderness (R) - Neurological Exam Neurological exam: Present: alert, oriented X3 - Psychiatric Psychiatric exam: Present: normal affect, normal mood - Skin Skin exam: Absent: rash Internal Med - H&P Results - Labs CBC & Chem 7: 01/23/18 05:05 01/23/18 05:05 - Assessment and plan (1) NSTEMI (non-ST elevated myocardial infarction) Current Visit: Yes Status: Acute Assessment and plan: Will admit the pt into Tele Will place pt on media monitor check serial troponin Initial Trop @ 0.2 Reviewed LHC from 10/14 - showed double vessel disease - No PCI She may need another LHC Cont Heparin gtt for now EKG reviewed - No acute ischemic changes Cont ASA , Plavix, BB , Statin and ACEI Will check FLP in AM Card is on board (2) CAD (coronary artery disease) Current Visit: Yes Status: Chronic Qualifiers: Coronary Disease-Associated Artery/Lesion type: [place] artery [place] vs. transplanted heart: [place] heart Associated angina: with unstable angina Qualified Code(s): I25.110 - Atherosclerotic heart disease of [place] coronary artery with unstable angina pectoris (3) Chest pain Current Visit: No Status: Acute Qualifiers: Chest pain type: unspecified Qualified Code(s): R07.9 - Chest pain, unspecified (4) COPD (chronic obstructive pulmonary disease) Current Visit: No Status: Chronic Assessment and plan: Not in exacerbation Resumed home inhalers Duoneb PRN No need of steroids use O2 PRN Qualifiers: COPD type: unspecified COPD Qualified Code(s): J44.9 - Chronic obstructive pulmonary disease, unspecified (5) DM (diabetes mellitus), type 2 Current Visit: No Status: Acute Assessment and plan: On ISS and Levemir Qualifiers: Diabetes mellitus usp insulin use: with termite inspector use Diabetes mellitus complication status: without complication Qualified Code(s): E11.9 - Type 2 diabetes mellitus without complications; Z79.4 - salvage determiner (current) use of insulin (6) Morbid obesity with BMI of 50.0-59.9, adult Current Visit: No Status: Chronic Assessment and plan: Counseled to loose weight (7) RYANNE (obstructive sleep apnea) Current Visit: No Status: Chronic Assessment and plan: O2 at bed time @ 3 lit (8) Chronic respiratory failure with hypoxia Current Visit: Yes Status: Acute - Time Spent With Patient Total time spent is greater than 50% in coordination of care (as documented) at patient's floor/unit and/or counseling patient:
[2018-01-23] MEDS: Insulin LISPRO 300 UNITS/3 ML VIAL SQ SCH ×2 (10:40→17:37)
[2018-01-23 11:36] LABS: Estimated Average Glucose 174 mg/dl; Hemoglobin A1C 7.7 %
--- NOTE | 2018-01-23 12:07 | Pre-Sedation Evaluation ---
Pre-sedation evaluation - Pre-sedation checklist Date of procedure: 01/23/18 Procedure: Left heart catheterization Recent Vitals: Last Vital Signs Temp 97.8 F 01/23/18 10:25 Pulse 94 01/23/18 10:25 Resp 15 01/23/18 10:25 BP 159/82 01/23/18 10:25 Pulse Ox 93 01/23/18 10:25 H&P (including ROS) documented in medical record: Yes Previous reaction to sedatives/anesthetics: No Dietary Status: NPO after Midnight Dentition: No loose teeth or bridges ASA Classification *see protocol: CLASS II-Mild systemic disease
[2018-01-23] MEDS ORDERED: 0.9 % Sodium Chloride 1,000 ML ONE ×2 (13:00→13:31)
[2018-01-23] MEDS ORDERED: Heparin 1,000 UNITS/500 mL 500 ML ONE (13:00)
[2018-01-23] MEDS ORDERED: *HR* Heparin 10,000 UNIT/10 ML VIAL ONE (13:00)
[2018-01-23] MEDS ORDERED: ISOVUE-370 200 ML INFUS..BTL IV ONE ×2 (13:00→14:01)
[2018-01-23] MEDS: Gabapentin 400 MG CAPSULE PO SCH ×3 (13:08→22:38)
[2018-01-23] MEDS ORDERED: Nitroglycerin 1,000 MCG/10 ML VIAL IV ONE (13:12)
[2018-01-23] MEDS ORDERED: *HR* Midazolam HCl 2 MG/2 ML VIAL ONE (13:43)
[2018-01-23] MEDS ORDERED: *HR* FentaNYL (PF) 100 MCG/2 ML VIAL ONE (13:44)
[2018-01-23] MEDS ORDERED: Tirofiban 12.5 MG/250ML 12.5 MG/250 ML BAG ONE (14:01)
[2018-01-23] MEDS ORDERED: *HR* Ticagrelor 90 MG TABLET ONE (14:36)
[2018-01-23] MEDS ORDERED: Tirofiban 12.5 MG/250ML 12.5 MG/250 ML BAG IVC SCH (14:45)
--- NOTE | 2018-01-23 14:48 | Invasive Diagnostic Lab Proc ---
Name: Cinthia Mark Date of Study: 01/23/2018 Date: 1960 Ht: 66.9in Medical Record#: [id number] Age: 57 Wt: 388.90lb Gender: Female BSA: 2.68 Order #: [id number] BMI: 61.11 Physicians Procedure Physician: Ness Vanessa MD Referring MD: Referring MD: Staff Name Position Time In Viki Rivero RT (R) Scrub 01:33 PM Lior Amador RN Monitor 01:33 PM Alison Jennings RN Tube Drawer 01:33 PM Elizabeth Negrete RN Tube Drawer 01:34 PM Indications Indication Non-Stemi Procedures Performed Procedure L HRT ARTERY/VENTRICLE ANGIO PRQ CARD MY STENT W/ANGIO 1 VSL Pre-Procedure Checklist Informed consent is complete signed and on chart. H&P is on chart. ID band is on and ID verified with patient. Patient NPO for procedure The procedure was described for the patient and questions were answered. ECG is on chart. Plan of Care Patient will tolerate the procedure without complications. Adequate level of comfort will be maintained. Hemodynamics will remain stable Patient will recover from procedure without complications. Respiratory function will be maintained. Cardiac rhythm will remain stable. Patient temperature will be maintained. Patient and/or family have verbalized understanding of the procedure. Patient Education Chief Complaint/Reason for Test: Cardiac Cath Developmental Category: Adult (18-64 years) Developmentally Appropriate for Age: Yes Learning Barriers: None Education Needs: Procedure Education Method: Verbal Information Taught: Cardiac Cath Educational Evaluation: Able to repeat information Intravenous Access Time IV Size Location DC'd Fluid/Drip Rate Units RN 20g 1 08/28" Patent On Arrival 0.9NaCl ml/hr Allergies metformin Victoza Phenergan ibuprofen NSAIDS (Non-Steroidal Anti-Inflamma prednisone tramadol promethazine Vital Signs Time BP (mmHg) HR (bpm) O2 Sat. RR (bpm) LOC 01:49 PM / % 5 = Fully awake and oriented or at pre-proc level 01:49 PM / % 4 = Oriented but drowsy 02:04 PM / % 4 = Oriented but drowsy 01:36 PM 194 / 127 103 92 % 01:40 PM 183 / 107 93 94 % 01:45 PM 180 / 105 94 93 % 01:51 PM 186 / 101 94 91 % 01:55 PM 173 / 102 94 90 % 02:00 PM 169 / 99 91 93 % 02:06 PM 177 / 101 94 92 % 02:10 PM 179 / 96 97 93 % 02:15 PM 166 / 104 101 95 % 02:20 PM 177 / 92 91 94 % 02:25 PM 188 / 96 89 95 % Procedural Medications Time Medication Dose Units Method Given By 01:46 PM Oxygen 2 L/min nasal cannula Elizabeth Negrete RN 01:46 PM Versed 1 mg Intravenous Elizabeth Negrete RN 01:46 PM Fentanyl 50 mcg Intravenous Elizabeth Negrete RN 01:54 PM Lidocaine 2% 20 ml Subcutaneous Ness Vanessa MD 02:06 PM Aggrastat Bolus: 75 ml Intravenous Alison Jennings RN 02:07 PM Aggrastat 12.5mg/250ml 27 ml Intravenous Alison Jennings RN 02:09 PM Heparin 2000 units Intravenous Elizabeth Negrete RN 02:36 PM Brilinta 180 mg Orally Elizabeth Negrete RN ASA Classification: CLASS II- Mild systemic disease (i.e. well-controlled diabetes, hypertension, asthma, cigarette smoking) Eliza Score Preprocedure Postprocedure Activity 2- Moves 4 extremities sustained head lift Activity 2- Moves 4 extremities sustained head lift Circulation 2- SBP +/= 20 points of pre-anesthetic level Circulation 2- SBP +/= 20 points of pre-anesthetic level Consciousness 2- Awake and alert oriented x 3 Consciousness 2- Awake and alert oriented x 3 O2 Saturation 2- Able to maintain O2 satruation of 92% on room air O2 Saturation 2- Able to maintain O2 satruation of 92% on room air Respiratory 2- Able to deep breathe and cough well Respiratory 2- Able to deep breathe and cough well Total Score 10 Total Score 10 Contrast Agent: Isovue Diagnostic Contrast: 127 ml Total Contrast: 127 ml Fluoro Dose: 1271 mGy Activated Clotting Time Time Seconds to Clot 02:09 PM 203 Procedure Log Time Note Enter By 01:33 PM 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 cedwards 01:33 PM Viki Rivero RT (R) Position: Scrub Time in: 13:33 cedwards 01:33 PM Lior Amador RN Position: Monitor Time in: : ced 01:33 PM Alison Jennings RN Position: Tube Drawer Time in: : ced:34 PM Elizabeth Negrete RN Position: Tube Drawer Time in: : ced:34 PM Physician arrived : ced:34 PM Meet and greet completed :34 PM Sign in performed according to hospital policy. ced:34 PM Procedure start : ced:34 PM CathStat :34 PM Vitals capture started with the following parameters, Patient=Adult, Interval=5 min, Initial [place]=216 mmHg, Deflation Rate=5 mmHg, Cuff placed on Right Arm 01:35 PM Hair removed from procedure site in procedure lab using clippers. Bilateral groin prepped with Chloraprep by Osman Rivero), then patient was draped. Skin intact. cedwards 01:36 PM XS=028 bpm, LXXN=600/127 mmhg, SpO2=92.0 %, Comment=nsr 01:38 PM Recorded ECG: HR=93 Condition=Condition 1 01:40 PM HR=93 bpm, WEJD=416/107 mmhg, SpO2=94.0 %, Comment=nsr 01:44 PM ASA Class CLASS II- Mild systemic disease (i.e. well-controlled diabetes, hypertension, asthma, cigarette smoking) cedwards 01:45 PM HR=94 bpm, XCTH=665/105 mmhg, SpO2=93.0 %, Comment=nsr 01:46 PM Time: 13:46 Oxygen on at 2 L/min per nasal cannula by Elizabeth Negrete RN ced 01:46 PM Time: 13:46 Versed 1 mg Intravenous Given by Elizabeth Negrete RN 01:46 PM Time: 13:46 Fentanyl 50 mcg Intravenous Given by Elizabeth Negrete RN cedwards 01:47 PM Recorded ECG: HR=93 Condition=Condition 1 01:49 PM Time: 13:49 Patient comfortable and pain free: Yes :49 PM Time: 13:49LOC: 5 = Fully awake and oriented or at pre-proc level cedwards 01:51 PM HR=94 bpm, XNUZ=592/101 mmhg, SpO2=91.0 %, Comment=nsr 01:53 PM Clinical Presentation: Non-STEMI ced 01:54 PM Time out performed according to hospital policy ced 01:54 PM Time: 13:54 20 ml Lidocaine 2% to right groin Subcutaneous Given by Ness Vanessa MD cedwards 01:55 PM HR=94 bpm, KTTP=247/102 mmhg, SpO2=90.0 %, Comment=nsr 01:56 PM Micro-Introducer Kit utilized for sheath placement cedwards 01:56 PM Access obtained by percutaneous puncture. 6Fr 10cm Terumo [place] sheath placed in right Femoral artery. [id number] cedwards 01:58 PM 5Fr FR 4 catheter inserted over the wire DN ced 01:59 PM RCA angiography performed in multiple views. cedwards 02:00 PM Catheter removed cedwards 02:00 PM 5Fr FL 4 catheter inserted over the wire [facility] cedwards 02:00 PM HR=91 bpm, MCEH=782/99 mmhg, SpO2=93.0 %, Comment=nsr 02:01 PM LCA angiography performed in multiple views. cedwards 02:01 PM Recorded Pressure: Ao, HR=91, Condition=Condition 1 (Aorta) Ao 168/89/118 02:03 PM Catheter removed cedwards 02:04 PM PCI Status Urgent cedwards 02:04 PM PCI Indication: PCI for high risk Non-STEMI or unstable angina cedwards 02:04 PM Time: 13:49LOC: 4 = Oriented but drowsy cedwards 02:04 PM Time: 13:49 Patient comfortable and pain free: Yes cedwards 02:05 PM 6Fr JR 4 Cordis guide catheter was used to cannulate the PCI vessel successfully. reused? No cedwards 02:05 PM .014 [employer] [place] 190cm guide wire across target lesion- successful. reused? No cedwards 02:05 PM Inflation device was opened. cedwards 02:06 PM Coronary Dominance: right cedwards 02:06 PM HR=94 bpm, AZHG=537/101 mmhg, SpO2=92.0 %, Comment=nsr 02:06 PM Lesion found in Mid RCA. Pre Stenosis: 95 Pre PACO Flow: 3: Complete and Brisk Flow/Perfusion cedwards 02:07 PM Recorded Pressure: Ao, HR=92, Condition=Condition 1 (Aorta) Ao 142/80/106 02:07 PM Time: 14:06 Aggrastat Bolus: 75 ml Intravenous Given by Alison Jennings RN Prabhakar pump cedwards 02:08 PM Time: 14:07 Aggrastat 12.5mg/250ml 27 ml Intravenous Given by Alison Jennings RN Prabhakar pump cedwards 02:09 PM At 14:09 the ACT was 203 seconds. cedwards 02:09 PM Time: 14:09 Heparin 2000 units Intravenous Given by Elizabeth Negrete RN cedwards 02:10 PM HR=97 bpm, OZTH=570/96 mmhg, SpO2=93.0 %, Comment=nsr 02:11 PM 2.0 mm x 12 mm Emerge Monorail balloon across target lesion- successful. reused? No cedwards 02:12 PM Balloon inflated @ 6 rex for 10 seconds cedwards 02:13 PM Balloon inflated @ 6 rex for 12 seconds cedwards 02:13 PM Balloon catheter removed intact. cedwards 02:14 PM 3.0mm x 20mm Synergy drug-eluting stent across target lesion- successful Lot #[id number] cedwards 02:15 PM BN=451 bpm, NFJB=432/104 mmhg, SpO2=95.0 % 02:15 PM Stent deployed @ 9 rex for 6 seconds cedwards 02:16 PM Recorded Pressure: Ao, HR=97, Condition=Condition 1 (Aorta) Ao 137/92/112 02:16 PM Stent balloon reinflated @ 12 rex for 10 seconds cedwards 02:16 PM Stent balloon reinflated @ 14 rex for 5 seconds cedwards 02:16 PM Stent delivery system removed intact. cedwards 02:17 PM Guide wire removed intact. cedwards 02:18 PM Guide catheter removed intact. cedwards 02:18 PM 5Fr Pigtail catheter inserted over the wire [facility] cedwards 02:18 PM Catheter selectively placed in left ventricle cedwards 02:19 PM Bolus angiogram of left Ventricle complete: 10 ml/sec for a total of 20 mls cedwards 02:19 PM Recorded Pressure: LV, HR=96, Condition=Condition 1 (Left Ventricle) LV 149/27/35 02:19 PM Time: 14:04 Patient comfortable and pain free: Yes cedwards 02:20 PM Time: 14:04LOC: 4 = Oriented but drowsy cedwards 02:20 PM Recorded Pressure: LV, Ao, HR=95, Condition=Condition 1 (Left Ventricle) LV 139/29/38, (Aorta) Ao 141/85/110 02:20 PM HR=91 bpm, NBNS=814/92 mmhg, SpO2=94.0 % 02:21 PM Catheter removed cedwards 02:22 PM Procedure completed at 14:22 cedwards 02:22 PM Did you address PACO flow and Dominance? Yes cedwards 02:22 PM Sign out completed: Radiation Dose 1271.15 mGy Fluoro Time: 5.1 Isovue 370 - 200ml contrast 127 ml given by Ness Vanessa MD. Complications: NoneCardiac Rehab Consult needed: YesConfirmed administered medications: Yes cedwards 02:23 PM Isovue 370 - 200ml,1 Bottle(s) used. cedwards 02:25 PM Arterial sheath pulled, Angio-seal closure device used and was Successful [id number] S/N. cedwards 02:25 PM Estimated Blood Loss: minimal cedwards 02:25 PM Post ECG NSR cedwards 02:25 PM HR=89 bpm, ETQI=218/96 mmhg, SpO2=95.0 %, Comment=nsr 02:26 PM Information taught Cardiac Cath, PCI, and Angioseal cedwards 02:26 PM Education needs Procedure, Plan of Care, Disease Process, and Responsibilities of Patient in Care cedwards 02:26 PM Learning barriers :None cedwards 02:26 PM Education Methods Verbal cedwards 02:26 PM Education evaluation Able to repeat information cedwards 02:26 PM Site status No bleeding/hematoma - Rt Groin as reported by Viki Rivero RT (R) at 14:26 cedwards 02:26 PM Opsite applied cedwards 02:27 PM Complications: None cedwards 02:27 PM Fluoro Time: 5.1 cedwards 02:27 PM Isovue 370 - 200ml contrast [address] Vanessa. cedwards 02:27 PM Radiation Dose 1271.15 mGy cedwards 02:36 PM Lesion found in Mid LAD. Pre Stenosis: 70 Pre PACO Flow: 3: Complete and Brisk Flow/Perfusion cedwards 02:36 PM Time: 14:36 Brilinta 180 mg Orally Given by Elizabeth Negrete RN cedwards Complications Complication None None Hemodynamics Pressures Site Systolic/A Wave Diastolic/V Wave Mean AO 168 89 118 AO 142 80 106 AO 137 92 112 LV 149 27 35 LV 139 29 38 AO 141 85 110 Post Procedure Information Rhythm: NSR Post procedural instructions were given Site Checks Time Location Status Staff Sheath In? Note 02:26 PM Rt Groin No bleeding/hematoma Viki Rivero RT (R) Pulses Time Site Pre-Procedure Post-Procedure Note Bilateral DP & PT 1+ Bilateral radial 2+ Updated by Lior Amador RN on 01/23/2018 2:40:41 PM electronically signed on 01/23/2018 2:42:04 PM with status of Final
--- NOTE | 2018-01-23 15:07 | Invasive Diagnostic Lab Proc ---
Name: Cinthia Mark Date of Study: 01/23/2018 Date: 1960 Ht: 66.9in Medical Record#: [id number] Age: 57 Wt: 388.90lb Gender: Female BSA: 2.68 Order #: [id number] BMI: 61.11 Physicians Procedure Physician: Ness Vanessa MD Referring MD: Referring MD: Staff Name Position Time In Viki Rivero RT (R) Scrub 01:33 PM Lior Amador RN Monitor 01:33 PM Alison Jennings RN Rn Stars 01:33 PM Elizabeth Negrete RN Rn Stars 01:34 PM Indications Indication Non-Stemi Procedures Performed Procedure L HRT ARTERY/VENTRICLE ANGIO PRQ CARD MY STENT W/ANGIO 1 VSL Pre-Procedure Checklist Informed consent is complete signed and on chart. H&P is on chart. ID band is on and ID verified with patient. Patient NPO for procedure The procedure was described for the patient and questions were answered. ECG is on chart. Plan of Care Patient will tolerate the procedure without complications. Adequate level of comfort will be maintained. Hemodynamics will remain stable Patient will recover from procedure without complications. Respiratory function will be maintained. Cardiac rhythm will remain stable. Patient temperature will be maintained. Patient and/or family have verbalized understanding of the procedure. Patient Education Chief Complaint/Reason for Test: Cardiac Cath Developmental Category: Adult (18-64 years) Developmentally Appropriate for Age: Yes Learning Barriers: None Education Needs: Procedure Education Method: Verbal Information Taught: Cardiac Cath Educational Evaluation: Able to repeat information Intravenous Access Time IV Size Location DC'd Fluid/Drip Rate Units RN 20g 1 08/28" Patent On Arrival 0.9NaCl ml/hr Allergies metformin Victoza Phenergan ibuprofen NSAIDS (Non-Steroidal Anti-Inflamma prednisone tramadol promethazine Vital Signs Time BP (mmHg) HR (bpm) O2 Sat. RR (bpm) LOC 01:49 PM / % 5 = Fully awake and oriented or at pre-proc level 01:49 PM / % 4 = Oriented but drowsy 02:04 PM / % 4 = Oriented but drowsy 01:36 PM 194 / 127 103 92 % 01:40 PM 183 / 107 93 94 % 01:45 PM 180 / 105 94 93 % 01:51 PM 186 / 101 94 91 % 01:55 PM 173 / 102 94 90 % 02:00 PM 169 / 99 91 93 % 02:06 PM 177 / 101 94 92 % 02:10 PM 179 / 96 97 93 % 02:15 PM 166 / 104 101 95 % 02:20 PM 177 / 92 91 94 % 02:25 PM 188 / 96 89 95 % Procedural Medications Time Medication Dose Units Method Given By 01:46 PM Oxygen 2 L/min nasal cannula Elizabeth Negrete RN 01:46 PM Versed 1 mg Intravenous Elizabeth Negrete RN 01:46 PM Fentanyl 50 mcg Intravenous Elizabeth Negrete RN 01:54 PM Lidocaine 2% 20 ml Subcutaneous Ness Vanessa MD 02:06 PM Aggrastat Bolus: 75 ml Intravenous Alison Jennings RN 02:07 PM Aggrastat 12.5mg/250ml 27 ml Intravenous Alison Jennings RN 02:09 PM Heparin 2000 units Intravenous Elizabeth Negrete RN 02:36 PM Brilinta 180 mg Orally Elizabeth Negrete RN ASA Classification: CLASS II- Mild systemic disease (i.e. well-controlled diabetes, hypertension, asthma, cigarette smoking) Eliza Score Preprocedure Postprocedure Activity 2- Moves 4 extremities sustained head lift Activity 2- Moves 4 extremities sustained head lift Circulation 2- SBP +/= 20 points of pre-anesthetic level Circulation 2- SBP +/= 20 points of pre-anesthetic level Consciousness 2- Awake and alert oriented x 3 Consciousness 2- Awake and alert oriented x 3 O2 Saturation 2- Able to maintain O2 satruation of 92% on room air O2 Saturation 2- Able to maintain O2 satruation of 92% on room air Respiratory 2- Able to deep breathe and cough well Respiratory 2- Able to deep breathe and cough well Total Score 10 Total Score 10 Contrast Agent: Isovue Diagnostic Contrast: 127 ml Total Contrast: 127 ml Fluoro Dose: 1271 mGy Activated Clotting Time Time Seconds to Clot 02:09 PM 203 Procedure Log Time Note Enter By 01:33 PM 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 cedwards 01:33 PM Viki Rivero RT (R) Position: Scrub Time in: 13:33 cedwards 01:33 PM Lior Amador RN Position: Monitor Time in: : ced 01:33 PM Alison Jennings RN Position: Rn Stars Time in: : ced:34 PM Elizabeth Negrete RN Position: Rn Stars Time in: : ced:34 PM Physician arrived : ced:34 PM Meet and greet completed :34 PM Sign in performed according to hospital policy. ced:34 PM Procedure start : ced:34 PM CathStat :34 PM Vitals capture started with the following parameters, Patient=Adult, Interval=5 min, Initial Ggtpclxu=735 mmHg, Deflation Rate=5 mmHg, Cuff placed on Right Arm 01:35 PM Hair removed from procedure site in procedure lab using clippers. Bilateral groin prepped with Chloraprep by Osman Rivero), then patient was draped. Skin intact. cedwards 01:36 PM TJ=246 bpm, DAQO=925/127 mmhg, SpO2=92.0 %, Comment=nsr 01:38 PM Recorded ECG: HR=93 Condition=Condition 1 01:40 PM HR=93 bpm, PWLW=268/107 mmhg, SpO2=94.0 %, Comment=nsr 01:44 PM ASA Class CLASS II- Mild systemic disease (i.e. well-controlled diabetes, hypertension, asthma, cigarette smoking) cedwards 01:45 PM HR=94 bpm, OOYJ=288/105 mmhg, SpO2=93.0 %, Comment=nsr 01:46 PM Time: 13:46 Oxygen on at 2 L/min per nasal cannula by Elizabeth Negrete RN ced 01:46 PM Time: 13:46 Versed 1 mg Intravenous Given by Elizabeth Negrete RN 01:46 PM Time: 13:46 Fentanyl 50 mcg Intravenous Given by Elizabeth Negrete RN cedwards 01:47 PM Recorded ECG: HR=93 Condition=Condition 1 01:49 PM Time: 13:49 Patient comfortable and pain free: Yes :49 PM Time: 13:49LOC: 5 = Fully awake and oriented or at pre-proc level cedwards 01:51 PM HR=94 bpm, EUXB=385/101 mmhg, SpO2=91.0 %, Comment=nsr 01:53 PM Clinical Presentation: Non-STEMI ced 01:54 PM Time out performed according to hospital policy ced 01:54 PM Time: 13:54 20 ml Lidocaine 2% to right groin Subcutaneous Given by Ness Vanessa MD cedwards 01:55 PM HR=94 bpm, MAMT=831/102 mmhg, SpO2=90.0 %, Comment=nsr 01:56 PM Micro-Introducer Kit utilized for sheath placement cedwards 01:56 PM Access obtained by percutaneous puncture. 6Fr 10cm Terumo [place] sheath placed in right Femoral artery. [id number] cedwards 01:58 PM 5Fr FR 4 catheter inserted over the wire DN ced 01:59 PM RCA angiography performed in multiple views. cedwards 02:00 PM Catheter removed cedwards 02:00 PM 5Fr FL 4 catheter inserted over the wire [facility] cedwards 02:00 PM HR=91 bpm, KXZJ=824/99 mmhg, SpO2=93.0 %, Comment=nsr 02:01 PM LCA angiography performed in multiple views. cedwards 02:01 PM Recorded Pressure: Ao, HR=91, Condition=Condition 1 (Aorta) Ao 168/89/118 02:03 PM Catheter removed cedwards 02:04 PM PCI Status Urgent cedwards 02:04 PM PCI Indication: PCI for high risk Non-STEMI or unstable angina cedwards 02:04 PM Time: 13:49LOC: 4 = Oriented but drowsy cedwards 02:04 PM Time: 13:49 Patient comfortable and pain free: Yes cedwards 02:05 PM 6Fr JR 4 Cordis guide catheter was used to cannulate the PCI vessel successfully. reused? No cedwards 02:05 PM .014 [employer] [place] 190cm guide wire across target lesion- successful. reused? No cedwards 02:05 PM Inflation device was opened. cedwards 02:06 PM Coronary Dominance: right cedwards 02:06 PM HR=94 bpm, OOFS=014/101 mmhg, SpO2=92.0 %, Comment=nsr 02:06 PM Lesion found in Mid RCA. Pre Stenosis: 95 Pre PACO Flow: 3: Complete and Brisk Flow/Perfusion cedwards 02:07 PM Recorded Pressure: Ao, HR=92, Condition=Condition 1 (Aorta) Ao 142/80/106 02:07 PM Time: 14:06 Aggrastat Bolus: 75 ml Intravenous Given by Alison Jennings RN Prabhakar pump cedwards 02:08 PM Time: 14:07 Aggrastat 12.5mg/250ml 27 ml Intravenous Given by Alison Jennings RN Prabhakar pump cedwards 02:09 PM At 14:09 the ACT was 203 seconds. cedwards 02:09 PM Time: 14:09 Heparin 2000 units Intravenous Given by Elizabeth Negrete RN cedwards 02:10 PM HR=97 bpm, UPLP=530/96 mmhg, SpO2=93.0 %, Comment=nsr 02:11 PM 2.0 mm x 12 mm Emerge Monorail balloon across target lesion- successful. reused? No cedwards 02:12 PM Balloon inflated @ 6 rex for 10 seconds cedwards 02:13 PM Balloon inflated @ 6 rex for 12 seconds cedwards 02:13 PM Balloon catheter removed intact. cedwards 02:14 PM 3.0mm x 20mm Synergy drug-eluting stent across target lesion- successful Lot #[id number] cedwards 02:15 PM TY=955 bpm, CSRC=161/104 mmhg, SpO2=95.0 % 02:15 PM Stent deployed @ 9 rex for 6 seconds cedwards 02:16 PM Recorded Pressure: Ao, HR=97, Condition=Condition 1 (Aorta) Ao 137/92/112 02:16 PM Stent balloon reinflated @ 12 rex for 10 seconds cedwards 02:16 PM Stent balloon reinflated @ 14 rex for 5 seconds cedwards 02:16 PM Stent delivery system removed intact. cedwards 02:17 PM Guide wire removed intact. cedwards 02:18 PM Guide catheter removed intact. cedwards 02:18 PM 5Fr Pigtail catheter inserted over the wire [facility] cedwards 02:18 PM Catheter selectively placed in left ventricle cedwards 02:19 PM Bolus angiogram of left Ventricle complete: 10 ml/sec for a total of 20 mls cedwards 02:19 PM Recorded Pressure: LV, HR=96, Condition=Condition 1 (Left Ventricle) LV 149/27/35 02:19 PM Time: 14:04 Patient comfortable and pain free: Yes cedwards 02:20 PM Time: 14:04LOC: 4 = Oriented but drowsy cedwards 02:20 PM Recorded Pressure: LV, Ao, HR=95, Condition=Condition 1 (Left Ventricle) LV 139/29/38, (Aorta) Ao 141/85/110 02:20 PM HR=91 bpm, MGBO=496/92 mmhg, SpO2=94.0 % 02:21 PM Catheter removed cedwards 02:22 PM Procedure completed at 14:22 cedwards 02:22 PM Did you address PACO flow and Dominance? Yes cedwards 02:22 PM Sign out completed: Radiation Dose 1271.15 mGy Fluoro Time: 5.1 Isovue 370 - 200ml contrast 127 ml given by Ness Vanessa MD. Complications: NoneCardiac Rehab Consult needed: YesConfirmed administered medications: Yes cedwards 02:23 PM Isovue 370 - 200ml,1 Bottle(s) used. cedwards 02:25 PM Arterial sheath pulled, Angio-seal closure device used and was Successful [id number] S/N. cedwards 02:25 PM Estimated Blood Loss: minimal cedwards 02:25 PM Post ECG NSR cedwards 02:25 PM HR=89 bpm, LTTB=452/96 mmhg, SpO2=95.0 %, Comment=nsr 02:26 PM Information taught Cardiac Cath, PCI, and Angioseal cedwards 02:26 PM Education needs Procedure, Plan of Care, Disease Process, and Responsibilities of Patient in Care cedwards 02:26 PM Learning barriers :None cedwards 02:26 PM Education Methods Verbal cedwards 02:26 PM Education evaluation Able to repeat information cedwards 02:26 PM Site status No bleeding/hematoma - Rt Groin as reported by Viki Rivero RT (R) at 14:26 cedwards 02:26 PM Opsite applied cedwards 02:27 PM Complications: None cedwards 02:27 PM Fluoro Time: 5.1 cedwards 02:27 PM Isovue 370 - 200ml contrast [address] Vanessa. cedwards 02:27 PM Radiation Dose 1271.15 mGy cedwards 02:36 PM Lesion found in Mid LAD. Pre Stenosis: 70 Pre PACO Flow: 3: Complete and Brisk Flow/Perfusion cedwards 02:36 PM Time: 14:36 Brilinta 180 mg Orally Given by Elizabeth Negrete RN cedwards 02:57 PM Report given to Aaliyah RN Pt taken to 2NE Room #18. 14:57 cedwards 02:57 PM Patient out of room: 14:57 cedwards Complications Complication None None Hemodynamics Pressures Site Systolic/A Wave Diastolic/V Wave Mean AO 168 89 118 AO 142 80 106 AO 137 92 112 LV 149 27 35 LV 139 29 38 AO 141 85 110 Post Procedure Information Rhythm: NSR Post procedural instructions were given Site Checks Time Location Status Staff Sheath In? Note 02:26 PM Rt Groin No bleeding/hematoma Viki Rivero RT (R) Pulses Time Site Pre-Procedure Post-Procedure Note Bilateral DP & PT 1+ Bilateral radial 2+ Updated by Lior Amador RN on 01/23/2018 2:57:34 PM electronically signed on 01/23/2018 3:00:06 PM with status of Final
[2018-01-23] MEDS: Budesonide/Formoterol 160/4.5 MDI IH SCH (20:38)
[2018-01-23] MEDS ORDERED: Insulin LISPRO 300 UNITS/3 ML VIAL SQ SCH (21:00)
[2018-01-23] MEDS: *HR* Ticagrelor 90 MG TABLET PO SCH (22:38)
[2018-01-23] MEDS: Insulin DETEMIR 100 UNIT/ML X5UNITS SQ SCH (22:38)
[2018-01-23] MEDS: Famotidine 20 MG TABLET PO SCH (22:40)
[2018-01-24 05:13] LABS: Basophils % 0.4 %; Eosinophils # 0.2 K/mcL (0.0-0.6); Eosinophils % 3.1 %; Hematocrit 37.6 % (35.3-44.9); Hemoglobin 12.4 g/dL (11.5-15.4); Immature Granulocytes % 0.4 % (0-4); Lymphocytes # 1.3 K/mcL (0.6-4.6); Lymphocytes % 18.4 %; Mean Corpuscular Hemoglobin 29.5 pg (28.0-33.3); Mean Corpuscular Volume 89.5 fL (83.0-100.0); Mean Platelet Volume 10.4 fL (9.4-12.4); Monocytes # 0.4 K/mcL (0.0-1.3); Monocytes % 5.6 %; Neutrophils # 4.9 K/mcL (1.6-8.9); Platelet Count 172 K/mcL (140-400); Segmented Neutrophils % 72.1 %
[2018-01-24 05:34] LABS: BUN/Creatinine Ratio 20 (6-26); Blood Urea Nitrogen 12 mg/dL (6-20); Carbon Dioxide 28 mEq/L (23-29); Chloride 102 mEq/L (98-107); Chol/HDL Ratio 8.9 (0-4.9); Cholesterol 186 mg/dL (< 200); Glucose 280 mg/dL (70-105); HDL Cholesterol 21 mg/dL (40-59); Magnesium 1.7 mg/dL (1.6-2.6); Osmolality,Calculated 290 (280-300); Potassium 4.2 mEq/L (3.5-5.1); Sodium 135 mEq/L (136-145); Triglycerides 544 mg/dL (< 150); eGFR For African Americans > 60 (> 60); eGFR For Non-African Americans > 60 (> 60)
[2018-01-24] MEDS ORDERED: *HR* Heparin 5,000 UNIT/ML VIAL SQ SCH (06:15)
[2018-01-24 06:42] VITALS: BP 152/74
[2018-01-24] MEDS: Budesonide/Formoterol 160/4.5 MDI IH SCH (07:29)
[2018-01-24] MEDS ORDERED: Metoprolol XL (24 HR) Succ 25 MG TAB.ER.24H PO SCH (09:00)
[2018-01-24] MEDS ORDERED: Fluticasone Propionate Nasal 50 MCG/SPRAY BOTTLE NS SCH (09:00)
[2018-01-24] MEDS ORDERED: Cholecalciferol (D-3) 1,000 UNIT TABLET PO SCH (09:00)
[2018-01-24] MEDS ORDERED: Aspirin 81 MG TAB.CHEW PO SCH (09:00)
[2018-01-24] MEDS: Insulin LISPRO 300 UNITS/3 ML VIAL SQ SCH ×2 (09:12→12:32)
[2018-01-24] MEDS: Gabapentin 400 MG CAPSULE PO SCH ×2 (09:13→12:31)
[2018-01-24] MEDS: Famotidine 20 MG TABLET PO SCH (09:14)
[2018-01-24] MEDS: *HR* Ticagrelor 90 MG TABLET PO SCH (09:14)
--- NOTE | 2018-01-24 09:44 | Cardiology Progress Note ---
Date of Encounter: 01/24/18 Time of Encounter: 08:30 Assessment and Plan (1) NSTEMI (non-ST elevated myocardial infarction) Current Visit: Yes Status: Acute Per cardiology: -Patient presented with typical chest pain symptoms. -Initial troponin 0.20, no significant ST/T wave abnormalities noted. -S/p [facility] yesterday with unofficial report reviewed with PCI to RCA. Has remaining LAD disease. -Chest pain free upon my exam. -On asa, statin, BB. Started on brilinta (assistance card given). Educated on dual anti-platelet therapy uninterrupted for at least one year. Patient states understanding. Educated to call cardiology for any issues obtaining or affording brilinita. -Right groin access site without hematoma or ecchymosis. -Cardiology will sign off and will follow in outpatient setting. Follow up set. -Of note, discussed with , ok to discharge without TTE, consider outpatient TTE. (2) CAD (coronary artery disease) Current Visit: Yes Status: Chronic Per cardiology: -Hx of CAD s/p PCI. -Last [facility] 2015--medical management recommended, small vessel disease described. -Plan as above. -Asa, statin, BB, brilinta Qualifiers: Coronary Disease-Associated Artery/Lesion type: [place] artery [place] vs. transplanted heart: [place] heart Associated angina: with unstable angina Qualified Code(s): I25.110 - Atherosclerotic heart disease of [place] coronary artery with unstable angina pectoris (3) Tobacco abuse Current Visit: No Status: Chronic Per cardiology: -0.5 ppd. Has interest in quitting. -Tobacco cessation counseling. Discussion w patient/family: The assessment and plan as outlined above was discussed with the patient who expressed understanding and agreement. All questions were answered. Thank you for involving us in the care of your patient. Please call with any questions. Discussed and reviewed with . Subjective Principal diagnosis: NSTEMI Interval history: Patient is s/p [facility] yesterday. Denies chest pain. Denies shortness of breath. Objective Vital Signs, Last 4 Hours Temp Pulse Resp BP Pulse Ox 01/24/18 07:31 16 97 01/24/18 06:38 98.1 F 89 16 152/74 94 General: Conversant, No Apparent Distress HEENT: Atraumatic, Normocephaly, Mucus Membranes Moist Neck: No JVD, Normal carotid pulses Cardiac: Reg Rate and Rhythm, Normal S1 and S2, No Murmur Lungs: Normal Breath Sounds, No Wheeze, Rales, Rhonchi Neuro: Alert and responsive, No focal deficits noted Abdomen: Soft, Non-Tender Skin: No rashes noted on visualized skin, Other (Right groin access site without hematoma or ecchymosis. ) Musculoskeletal: No Chest Wall Tenderness Extremities: No Clubbing, No Cyanosis, No Edema, Normal Pulses, Other ( Bilateral lower extremities with dry, flaky skin. ) Results 01/24/18 04:12 01/24/18 04:12 Lab Results Active Medications Hydrocodone Bitart/Acetaminophen ([place] 5-325 Mg) 1 tab PO Q6HR PRN PRN Reason: Moderate Pain Stop: 07/25/18 09:02 Albuterol Sulfate (Proventil Neb) 2.5 mg IH QID PRN; Protocol PRN Reason: Shortness Of Breath Stop: 07/25/18 09:05 Albuterol Sulfate (Albuterol Inhaler) 2 puff IH Q4HR PRN PRN Reason: Shortness Of Breath Stop: 07/25/18 09:05 Albuterol/Ipratropium (Duoneb) 3 ml IH Q4HR PRN PRN Reason: Shortness Of Breath Stop: 07/25/18 09:05 Amitriptyline HCl (Elavil) 50 mg PO HS SEAN Stop: 07/25/18 21:01 Last Admin: 01/23/18 22:38 Dose: 50 mg Lipase/Protease/Amylase (Creon Dr 6,000 Units Capsule) 6 each PO TIDWM SEAN Stop: 07/25/18 12:01 Last Admin: 01/24/18 09:14 Dose: 6 each Aspirin (Aspirin) 81 mg PO DAILY SEAN Stop: 07/26/18 09:01 Last Admin: 01/24/18 09:14 Dose: 81 mg Atorvastatin Calcium (Lipitor) 40 mg PO HS SEAN Stop: 07/25/18 21:01 Last Admin: 01/23/18 22:38 Dose: 40 mg Budesonide/Formoterol Fumarate (Symbicort) 2 puff IH BID SEAN PRN Reason: Protocol Stop: 07/25/18 21:01 Last Admin: 01/24/18 07:29 Dose: 2 puff Dextrose/Water (Dextrose 50% (Syg)) 25 ml IVP AD PRN PRN Reason: Hypoglycemia Stop: 07/25/18 09:08 Docusate Sodium (Colace) 100 mg PO BID PRN PRN Reason: Constipation Stop: 07/25/18 21:01 Duloxetine HCl (Cymbalta) 60 mg PO DAILY [facility] Stop: 07/25/18 09:16 Last Admin: 01/24/18 09:13 Dose: 60 mg Famotidine (Pepcid) 40 mg PO DAILY [facility] Stop: 07/25/18 21:01 Last Admin: 01/24/18 09:14 Dose: 40 mg Fluticasone Propionate (Flonase) 50 mcg NS DAILY [facility] PRN Reason: Protocol Stop: 07/26/18 09:01 Last Admin: 01/24/18 09:15 Dose: Not Given Gabapentin (Neurontin) 800 mg PO QID [facility] Stop: 07/25/18 13:01 Last Admin: 01/24/18 09:13 Dose: 800 mg Glucagon (Glucagen) 1 mg IM ONCE PRN PRN Reason: Hypoglycemia Stop: 07/25/18 09:08 Glucose (Gluctose) 15 gm PO ONCE PRN PRN Reason: Hypoglycemia Stop: 07/25/18 09:08 Glucose (Gluctose) 30 gm PO ONCE PRN PRN Reason: Hypoglycemia Stop: 07/25/18 09:08 Heparin Sodium (Porcine) (Heparin) 5,000 unit SQ Q12HCO [facility] Stop: 07/26/18 06:16 Last Admin: 01/24/18 06:42 Dose: 5,000 unit Dextrose (Dextrose 5%) 1,000 mls @ 100 mls/hr IVC .Q10H PRN PRN Reason: HYPOGLYCEMIA Stop: 07/25/18 09:08 Insulin Detemir (Levemir) 20 unit SQ BID [facility] Stop: 07/25/18 21:01 Last Admin: 01/23/18 22:38 Dose: 20 unit Insulin Human Lispro (Humalog) 0 units SQ HS [facility] PRN Reason: Protocol Stop: 07/25/18 21:01 Last Admin: 01/23/18 22:35 Dose: 5 units Insulin Human Lispro (Humalog) 0 units SQ TIDAC [facility] PRN Reason: Protocol Stop: 07/25/18 11:31 Last Admin: 01/24/18 09:12 Dose: 12 units Metoprolol Succinate (Toprol Xl) 12.5 mg PO DAILY [facility] Stop: 07/26/18 09:01 Last Admin: 01/24/18 09:13 Dose: 12.5 mg Montelukast Sodium (Singulair) 10 mg PO QPM SEAN Stop: 07/25/18 18:01 Last Admin: 01/23/18 17:38 Dose: 10 mg Naloxone HCl (Narcan) 0.4 mg IVP Q2MIN PRN PRN Reason: SEE COMMENTS Stop: 07/25/18 09:02 Ondansetron HCl (Zofran) 4 mg IVP Q6HR PRN PRN Reason: Nausea And Vomiting Stop: 07/25/18 09:02 Oxycodone HCl (Roxicodone) 10 mg PO Q6HR PRN PRN Reason: Severe Pain Stop: 07/25/18 09:02 Pentoxifylline (Trental) 400 mg PO TIDWM [facility] Stop: 07/25/18 12:01 Last Admin: 01/24/18 09:14 Dose: 400 mg Promethazine HCl (Phenergan) 12.5 mg IVP Q6HR PRN PRN Reason: Nausea And Vomiting Stop: 07/25/18 09:02 Ticagrelor (Brilinta) 90 mg PO BID [facility] Stop: 07/25/18 21:01 Last Admin: 01/24/18 09:14 Dose: 90 mg Vitamin D (Vitamin D) 2,000 unit PO DAILY [facility] Stop: 07/26/18 09:01 Last Admin: 01/24/18 09:13 Dose: 2,000 unit Laboratory Tests 01/24/18 01/24/18 04:12 04:12 Hgb 12.4 Creatinine 0.59 L - Imaging and Cardiology Chest Xray: report reviewed Stress Test: report reviewed Cardiac cath: report reviewed - EKG Interpretation EKG results cardiology: other (Telemetry reviewed with average HR previous 12 hours noted to be 91, SR. PACs noted.) Consult Discharge Plan - Plan Referrals: Kamaljit Llanes DO [Partnered Physician] - 01/27/18 3:50 pm Harley Marrero DPM [Partnered Physician] - 02/02/18 4:15 pm Adenike East CNP [Advanced Practice Nurse] - 01/30/18 10:00 am
[2018-01-24] MEDS: Insulin DETEMIR 100 UNIT/ML X5UNITS SQ SCH (10:55)
--- NOTE | 2018-01-24 11:10 | Discharge Summary ---
- NOTES TO OUTPATIENT PROVIDER Notes to Outpatient Provider: Pt admitted with acute NSTEMI. Underwent LHC and stent placed. On dual antiplatelet therapy for a year. Orders not resulted at time of discharge: Pending orders 01/23/18 10:30 CL Cardiac Catheterization [CL] Routine 01/23/18 14:40 ECG 12 lead ECG [ECG] Routine ECG 12 lead ECG [ECG] Stat 01/24/18 07:00 ECG 12 lead ECG [ECG] Routine Date of Encounter: 01/24/18 Time of Encounter: 11:24 - Discharge Diagnosis (1) NSTEMI (non-ST elevated myocardial infarction) Priority: Primary Status: Resolved (2) CAD (coronary artery disease) Priority: Secondary Status: Chronic Qualifiers: Coronary Disease-Associated Artery/Lesion type: [place] artery [place] vs. transplanted heart: [place] heart Associated angina: with unstable angina Qualified Code(s): I25.110 - Atherosclerotic heart disease of [place] coronary artery with unstable angina pectoris (3) Chronic respiratory failure with hypoxia Priority: Secondary Status: Chronic (4) RYANNE (obstructive sleep apnea) Priority: Secondary Status: Chronic (5) Chest pain Priority: Secondary Status: Resolved Qualifiers: Chest pain type: chest pain due to myocardial ischemia Ischemic chest pain type: unstable angina pectoris Qualified Code(s): I20.0 - Unstable angina (6) DM (diabetes mellitus), type 2 Priority: Secondary Status: Chronic Qualifiers: Diabetes mellitus exterminator termite insulin use: with exterminator termite use Diabetes mellitus complication status: with circulatory complication Diabetes mellitus complication detail: with other circulatory complications Qualified Code(s): E11.59 - Type 2 diabetes mellitus with other circulatory complications; Z79.4 - exterminator termite (current) use of insulin (7) Morbid obesity with BMI of 50.0-59.9, adult Priority: Secondary Status: Chronic (8) COPD (chronic obstructive pulmonary disease) Priority: Secondary Status: Chronic Qualifiers: COPD type: unspecified COPD Qualified Code(s): J44.9 - Chronic obstructive pulmonary disease, unspecified (9) HTN (hypertension) Priority: Secondary Status: Chronic Qualifiers: Hypertension type: essential hypertension Qualified Code(s): I10 - Essential (primary) hypertension (10) Tobacco abuse Priority: Secondary Status: Chronic (11) Morbid obesity Priority: Secondary Status: Chronic Hospital course: Ms. Mark is a 57 year old female with hx of CAD and DM presented to ED with complaints of chest discomfort. Her troponin was elevated and she was started on heparin drip. She was subsequently admitted. Ms Mark was admitted with acute NSTEMI. She was seen by cardiology and taken to [facility]. Stent placed in RCA. She was placed on Brilinta and had uneventful night. This morning she is afebrile. She has no discomfort and is ready for discharge home. Discharge discussed with: patient, nurse Time spent discussing smoking cessation with patient: 3 to 10 minutes - Time Spent with Patient Total time spent providing and/or coordinating discharge services: 38min - Discharge Medications Prescriptions: Ticagrelor [Brilinta] 90 mg PO BID #60 tablet Home Medications: Cholecalciferol (D-3) [Vitamin D] 2,000 unit PO DAILY 05/31/16 [History] Metoprolol XL (24 HR) Succ [Toprol Xl] 12.5 mg PO DAILY 05/31/16 [History] Nitroglycerin [Nitrostat] 0.4 mg SL Q5M PRN 05/31/16 [History] Atorvastatin Calcium [Lipitor] 40 mg PO HS 05/01/17 [History] Gabapentin [Neurontin] 800 mg PO QID 05/01/17 [History] Liraglutide [Victoza 2-Yovani] 1.8 mg SQ DAILY 05/01/17 [History] Subcutaneous Insulin Pump [T:Slim] 1 each MC AD 09/15/17 [History] Cyclobenzaprine [Flexeril] 10 mg PO TID PRN 01/23/18 [History] Insulin Regular U-500 [HumuLIN R U-500] 60 unit SQ DAILY 01/23/18 [History] Potassium Chloride [K-Tab ER] 10 meq PO DAILY 01/23/18 [History] Albuterol Neb [Proventil Neb] 2.5 mg IH QID PRN inhsol 01/24/18 [Rx] Albuterol Sulfate [Albuterol Inhaler] 2 puff IH Q4HR PRN inhaler 01/24/18 [Rx] Amitriptyline [Elavil] 50 mg PO HS tablet 01/24/18 [Rx] Aspirin 81 mg PO DAILY tab.chew 01/24/18 [Rx] Budesonide/Formoterol 160/4.5 [Symbicort 160/4.5] 2 puff IH BID inhaler [Rx] DULoxetine [Cymbalta] 60 mg PO DAILY capsule. 01/24/18 [Rx] Famotidine [Pepcid] 40 mg PO DAILY tablet 01/24/18 [Rx] Fluticasone Propionate Nasal [Flonase] 50 mcg NS DAILY bottle 01/24/18 [Rx] Ipratropium/Albuterol Neb [Duoneb] 3 ml IH Q4HR PRN inhsol 01/24/18 [Rx] Lipase/Protease/Amylase [Creon 6,000 Units Capsule] 6 each PO TIDWM capsule. 01/24/18 [Rx] Montelukast [Singulair] 10 mg PO QPM tablet 01/24/18 [Rx] Pentoxifylline [TRENtal] 400 mg PO TIDWM tablet.er 01/24/18 [Rx] Ticagrelor [Brilinta] 90 mg PO BID #60 tablet 01/24/18 [Rx] Allergies/Adverse Reactions: 3 Allergy/AdvReac Type Severity Reaction Status Date / Time prednisone Allergy Hives Verified 01/23/18 07:42 ibuprofen AdvReac See Verified 01/23/18 07:42 Comments metformin AdvReac Diarrhea Verified 01/23/18 07:42 NSAIDS (Non-Steroidal AdvReac See Verified 01/23/18 07:42 Anti-Inflamma Comments promethazine [From Phenergan] AdvReac Vomiting Verified 01/23/18 07:42 tramadol AdvReac Diarrhea Verified 01/23/18 07:42 Date of admission: 01/23/18 09:01 Primary care physician: Tiffani Brewer CNP Consults: 01/23/18 14:40 Consult to Cardiac Rehabilitation-Phase1 [CONS] Routine Comment: Reason for Consult: AMI Call Completed: Yes Consult to Nurse Navigator [CONS] Routine Comment: Discharging clinician: Sukumar Gonsalez Anticipated date of discharge: 01/24/18 - Constitutional Vitals: Temp Pulse Resp BP Pulse Ox 98.1 F 89 16 152/74 97 01/24/18 06:38 01/24/18 06:38 01/24/18 07:31 01/24/18 06:38 01/24/18 07:31 General appearance: Present: A&O X 3, answers questions appropriately - Head Head exam: Present: normocephalic - Eye Eye exam: Present: EOMI, conjuntiva pink - ENT ENT exam: Present: mucous membranes moist - Respiratory Respiratory exam: Present: decreased breath sounds, CTAB. Absent: rales, rhonchi, wheezes - Cardiovascular Cardiovascular exam: Present: RRR. Absent: systolic murmur, tachycardia - GI/Abdominal GI/Abdominal exam: Present: soft. Absent: tenderness - Extremities Exam Extremities exam: Present: warm. Absent: tenderness - Neurological Exam Neurological exam: Present: alert, oriented X3, no focal deficits - Skin Skin exam: Present: dry, vesicles - Patient Status Disposition: Home, Self-Care Condition: Good Functional capacity at discharge: independent ambulation Overall status at discharge: patient is progressing back to baseline - Discharge Instructions Follow Up With: Kamaljit Llanes DO [Partnered Physician] - 01/27/18 3:50 pm Harley Marrero DPM [Partnered Physician] - 02/02/18 4:15 pm Adenike East CNP [Advanced Practice Nurse] - 01/30/18 10:00 am - Diet and Activity Activity: increase activity as tolerated Diet: advance to your usual diet
--- NOTE | 2018-01-25 21:39 | Electrocardiograph Report ---
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
== END 2018-01-24 14:02 | disposition home or self-care (01) | DRG 247 ==
LOC: EMEROO 04:41 → 2NENU 04:41 → SUATTDRO 09:01
PROVIDERS: ADMIT Internal Medicine Hematology & Oncology; ATTEND Internal Medicine

== ENCOUNTER 2019-06-08 19:16 | Observation (INO) ==
[2019-06-08] MEDS ORDERED: Isovue-370 500 ML BOTTLE IVP ONE (19:36)
[2019-06-08 20:19] LABS: Basophils % 0.1 %; Hematocrit 34.1 % (35.3-44.9); Immature Granulocytes % 1.1 % (0-4); Lymphocytes # 0.4 K/mcL (0.6-4.6); Lymphocytes % 4.3 %; Mean Corpuscular HGB Conc 32.3 g/dL (31.6-35.5); Mean Corpuscular Hemoglobin 29.3 pg (28.0-33.3); Mean Corpuscular Volume 90.7 fL (83.0-100.0); Mean Platelet Volume 10.2 fL (9.4-12.4); Monocytes # 0.1 K/mcL (0.0-1.3); Monocytes % 1.1 %; Neutrophils # 7.6 K/mcL (1.6-8.9); Platelet Count 250 K/mcL (140-400); Red Blood Count 3.76 M/mcL (3.82-4.97); Red Cell Distribution Width 14.6 % (11.5-14.5); Segmented Neutrophils % 93.4 %; White Blood Count 8.1 K/mcL (4.3-11.1)
[2019-06-08 20:28] LABS: Prothrombin Time 11.3 Seconds (9.4-12.1)
[2019-06-08 20:30] LABS: Activated Partial Thrombo Time 26.8 Seconds (26.0-36.0)
[2019-06-08 20:38] LABS: BUN/Creatinine Ratio 17 (6-26); Blood Urea Nitrogen 16 mg/dL (6-20); Calcium 9.2 mg/dL (8.6-10.3); Carbon Dioxide 20 mEq/L (23-29); Chloride 103 mEq/L (98-107); Glucose 497 mg/dL (70-105); Osmolality,Calculated 303 (280-300); Potassium 4.8 mEq/L (3.5-5.1); Sodium 135 mEq/L (136-145); Troponin I < 0.03 ng/mL (< 0.04); eGFR For African Americans > 60 (> 60); eGFR For Non-African Americans > 60 (> 60)
[2019-06-08] MEDS ORDERED: Insulin Human Regular 10 UNIT in 0.9 % Sodium Chloride 10 ML IV ONE (21:14)
[2019-06-08] MEDS ORDERED: *HR* Dextrose 50 % in Water (Syg) 50 ML SYRINGE IVP PRN (23:18)
[2019-06-08] MEDS ORDERED: Dextrose Gel 15 GM/37.5 ML TUBE PO PRN ×2 (23:18)
[2019-06-08] MEDS ORDERED: D5% in Water 1,000 ML IVC PRN (23:18)
[2019-06-09] MEDS: Insulin LISPRO 300 UNITS/3 ML VIAL SQ SCH ×3 (00:17→12:28)
[2019-06-09] MEDS ORDERED: Naloxone 0.4 MG/ML INJ IVP PRN (01:34)
[2019-06-09 02:47] LABS: Hemoglobin 10.4 g/dL (11.5-15.4); Mean Corpuscular HGB Conc 32.5 g/dL (31.6-35.5); Mean Corpuscular Hemoglobin 29.4 pg (28.0-33.3); Mean Corpuscular Volume 90.4 fL (83.0-100.0); Mean Platelet Volume 9.9 fL (9.4-12.4); Platelet Count 258 K/mcL (140-400); Red Blood Count 3.54 M/mcL (3.82-4.97); Red Cell Distribution Width 14.6 % (11.5-14.5); White Blood Count 9.5 K/mcL (4.3-11.1)
[2019-06-09 03:06] LABS: BUN/Creatinine Ratio 23 (6-26); Blood Urea Nitrogen 18 mg/dL (6-20); Calcium 9.4 mg/dL (8.6-10.3); Carbon Dioxide 26 mEq/L (23-29); Chloride 103 mEq/L (98-107); Glucose 284 mg/dL (70-105); Osmolality,Calculated 296 (280-300); Potassium 4.1 mEq/L (3.5-5.1); Sodium 137 mEq/L (136-145); eGFR For African Americans > 60 (> 60); eGFR For Non-African Americans > 60 (> 60)
[2019-06-09] MEDS: Aspirin 81 MG TAB.CHEW PO SCH (08:44)
[2019-06-09] MEDS ORDERED: Perflutren Lipid Microsphere 1.3 ML in 0.9 % Sodium Chloride 8.7 ML IVP ONE (09:56)
[2019-06-09] MEDS ORDERED: Adenosine 90 MG/30 ML MLS IV ONE (11:09)
[2019-06-09] MEDS ORDERED: *HR* Heparin 5,000 UNIT/ML VIAL IVP PRN ×2 (11:48)
[2019-06-09] MEDS ORDERED: *HR* Heparin 5,000 UNIT/ML VIAL IVP ONE (11:48)
[2019-06-09] MEDS ORDERED: Heparin 25,000 UNIT/250 ML D5W 25,000 UNIT/250 ML IV.SOLN IVC SCH (12:00)
[2019-06-09] MEDS ORDERED: 0.9 % Sodium Chloride 1,000 ML ONE ×2 (12:15→12:21)
[2019-06-09] MEDS ORDERED: *HR* Heparin 10,000 UNIT/10 ML VIAL ONE ×2 (12:15→13:24)
[2019-06-09] MEDS ORDERED: Nitroglycerin 1,000 MCG/10 ML VIAL IV ONE (12:15)
[2019-06-09] MEDS ORDERED: Heparin 1,000 UNITS/500 mL 500 ML ONE (12:15)
[2019-06-09] MEDS ORDERED: ISOVUE-370 200 ML INFUS..BTL ONE ×2 (12:15→13:36)
[2019-06-09] MEDS ORDERED: *HR* FentaNYL (PF) 100 MCG/2 ML VIAL ONE (12:28)
[2019-06-09] MEDS ORDERED: *HR* Midazolam HCl 2 MG/2 ML VIAL ONE (12:28)
[2019-06-09] MEDS ORDERED: Tirofiban 12.5 MG/250ML 12.5 MG/250 ML BAG ONE (13:24)
[2019-06-09] MEDS ORDERED: *HR* Ticagrelor 90 MG TABLET ONE (13:34)
[2019-06-09] MEDS: *HR* Ticagrelor 90 MG TABLET PO SCH ×2 (13:50→22:00)
[2019-06-09] MEDS ORDERED: Tirofiban 12.5 MG/250ML 12.5 MG/250 ML BAG IVC SCH (14:15)
[2019-06-09 15:25] LABS: Hematocrit 33.4 % (35.3-44.9); Hemoglobin 10.8 g/dL (11.5-15.4); Mean Corpuscular HGB Conc 32.3 g/dL (31.6-35.5); Mean Corpuscular Hemoglobin 29.2 pg (28.0-33.3); Mean Corpuscular Volume 90.3 fL (83.0-100.0); Mean Platelet Volume 10.2 fL (9.4-12.4); Platelet Count 270 K/mcL (140-400); Red Cell Distribution Width 14.6 % (11.5-14.5); White Blood Count 8.6 K/mcL (4.3-11.1)
[2019-06-09 15:32] LABS: INR 1.1
[2019-06-09] MEDS: (Subcutaneous Insulin Pump [T:Slim] 1 EACH) PO SCH (16:21)
[2019-06-09] MEDS ORDERED: *HR* Heparin 5,000 UNIT/ML VIAL SQ SCH (18:00)
[2019-06-10 06:28] LABS: Hematocrit 32.8 % (35.3-44.9); Hemoglobin 10.6 g/dL (11.5-15.4); Mean Corpuscular HGB Conc 32.3 g/dL (31.6-35.5); Mean Corpuscular Hemoglobin 29.3 pg (28.0-33.3); Mean Corpuscular Volume 90.6 fL (83.0-100.0); Mean Platelet Volume 9.9 fL (9.4-12.4); Platelet Count 252 K/mcL (140-400); Red Blood Count 3.62 M/mcL (3.82-4.97); Red Cell Distribution Width 14.6 % (11.5-14.5); White Blood Count 8.3 K/mcL (4.3-11.1)
[2019-06-10 07:16] VITALS: BP 137/69
[2019-06-10] MEDS: *HR* Ticagrelor 90 MG TABLET PO SCH (07:27)
[2019-06-10] MEDS: Aspirin 81 MG TAB.CHEW PO SCH (07:27)
[2019-06-10] MEDS: (Subcutaneous Insulin Pump [T:Slim] 1 EACH) PO SCH (07:28)
[2019-06-10 07:35] LABS: BUN/Creatinine Ratio 26 (6-26); Blood Urea Nitrogen 18 mg/dL (6-20); Calcium 9.3 mg/dL (8.6-10.3); Carbon Dioxide 30 mEq/L (23-29); Chloride 102 mEq/L (98-107); Glucose 76 mg/dL (70-105); Osmolality,Calculated 293 (280-300); Potassium 3.8 mEq/L (3.5-5.1); Sodium 141 mEq/L (136-145); eGFR For African Americans > 60 (> 60); eGFR For Non-African Americans > 60 (> 60)
[2019-06-10] MEDS ORDERED: Metoprolol XL (24 HR) Succ 25 MG TAB.ER.24H PO SCH (09:00)
[2019-06-10] MEDS ORDERED: Isosorbide MONOnitrate (24 HR) 30 MG TAB.ER.24H PO SCH (09:00)
== END 2019-06-10 11:10 | disposition home or self-care (01) ==
LOC: 3BNU 19:16 → EMEROOARM 19:16 → 3BNU 22:20
PROVIDERS: ADMIT Family Medicine; ATTEND Family Medicine

== ENCOUNTER 2019-07-26 15:11 | Inpatient (IN) ==
[2019-07-26] MEDS: 0.9 % Sodium Chloride 1,000 ML IVC SCH ×2 (16:01→17:56)
[2019-07-26 16:26] LABS: VBG HCO3 24 mEq/L (21-27); VBG PCO2 39 mmHg (41-51); VBG PO2 131 mmHg (25-50)
[2019-07-26 16:32] LABS: Basophils % 0.3 %; Hematocrit 30.4 % (35.3-44.9); Hemoglobin 9.9 g/dL (11.5-15.4); Immature Granulocytes % 0.8 % (0-4); Lymphocytes # 0.5 K/mcL (0.6-4.6); Mean Corpuscular HGB Conc 32.6 g/dL (31.6-35.5); Mean Corpuscular Hemoglobin 28.4 pg (28.0-33.3); Mean Corpuscular Volume 87.4 fL (83.0-100.0); Mean Platelet Volume 11.3 fL (9.4-12.4); Monocytes # 0.5 K/mcL (0.0-1.3); Monocytes % 5.8 %; Neutrophils # 7.9 K/mcL (1.6-8.9); Platelet Count 183 K/mcL (140-400); Red Blood Count 3.48 M/mcL (3.82-4.97); Red Cell Distribution Width 15.1 % (11.5-14.5); Segmented Neutrophils % 87.1 %
[2019-07-26 16:52] LABS: Alanine Aminotransferase 6 Units/L (7-52); Albumin 3.5 g/dL (3.5-5.7); Albumin/Globulin Ratio 0.9 (1.1-2.2); Alkaline Phosphatase 75 Units/L (34-104); Aspartate Amino Transferase 7 Units/L (13-39); BUN/Creatinine Ratio 20 (6-26); Bilirubin,Total 0.8 mg/dL (0.3-1.0); Blood Urea Nitrogen 21 mg/dL (6-20); Calcium 9.1 mg/dL (8.6-10.3); Carbon Dioxide 21 mEq/L (23-29); Chloride 89 mEq/L (98-107); Glucose 579 mg/dL (70-105); Magnesium 1.8 mg/dL (1.6-2.6); Osmolality,Calculated 290 (280-300); Phosphorous 2.1 mg/dL (2.7-4.5); Potassium 4.2 mEq/L (3.5-5.1); Sodium 125 mEq/L (136-145); Total Protein 7.5 g/dL (6.4-8.9); eGFR For African Americans > 60 (> 60); eGFR For Non-African Americans 53 (> 60)
[2019-07-26] MEDS ORDERED: *HR* Dextrose 50 % in Water (Syg) 50 ML SYRINGE IVP PRN (17:14)
[2019-07-26 17:16] LABS: Bilirubin,Urine Negative (Negative); Blood,Urine Moderate (Negative); Clarity,Urine Cloudy (Clear); Color,Urine Yellow (Yellow); Glucose,Urine (UA) >=1000 mg/dL (Normal); Ketones,Urine Trace mg/dL (Negative); Leukocyte Esterase,Urine Negative (Negative); Nitrite,Urine Negative (Negative); Protein,Urine 30 mg/dL (Neg-Trace); Urobilinogen,Urine Normal (Normal)
[2019-07-26 17:18] LABS: Bacteria,Urine Few per hpf (None-Few); Hyaline Casts,Urine None Seen per lpf (None-Few); Squamous Epithelial Cell,Urine Many per lpf (None-Few); WBC,Urine 50-100 per hpf (0-3)
[2019-07-26] MEDS: Insulin Human Regular 100 UNIT in 0.9 % Sodium Chloride 100 ML IVC SCH (17:55)
[2019-07-26] MEDS ORDERED: Potassium Phosphate 44 MEQ in 0.9 % Sodium Chloride 250 ML IVPB ONE (18:05)
[2019-07-26] MEDS ORDERED: D5% in 0.45% NACL w KCl 20 MEQ/1,000 ML MLS IVC PRN (18:06)
[2019-07-26] MEDS ORDERED: D5% in 0.45% NACL 1,000 ML IVC PRN (18:06)
[2019-07-26] MEDS ORDERED: Insulin Regular, Human 100 UNIT/ML IV PRN (18:06)
[2019-07-26] MEDS ORDERED: 0.9 % Sodium Chloride 1,000 ML IVC SCH (18:15)
[2019-07-26] MEDS: 0.9 % Sodium Chloride w KCl 20 MEQ/1,000 ML MLS IVC SCH ×3 (19:37→23:42)
[2019-07-26 20:03] LABS: ABG Base Excess 1 mEq/L (-2 to 3); ABG HCO3 26 mEq/L (21-27); ABG Oxygen Saturation 93 % (95-98); ABG PCO2 43 mmHg (35-45); ABG PH 7.39 pH Units (7.32-7.45); ABG PO2 68 mmHg (85-104); ABG TCO2 28 mEq/L (20-26)
[2019-07-26] MEDS: Budesonide/Formoterol 160/4.5 1 PUFF INH IH SCH (20:44)
[2019-07-26] MEDS: *HR* Ticagrelor 90 MG TABLET PO SCH (20:51)
[2019-07-26 20:55] LABS: BUN/Creatinine Ratio 20 (6-26); Blood Urea Nitrogen 20 mg/dL (6-20); Calcium 8.7 mg/dL (8.6-10.3); Carbon Dioxide 22 mEq/L (23-29); Chloride 96 mEq/L (98-107); Glucose 370 mg/dL (70-105); Osmolality,Calculated 288 (280-300); Sodium 130 mEq/L (136-145); eGFR For African Americans > 60 (> 60); eGFR For Non-African Americans 57 (> 60)
[2019-07-27] MEDS: Insulin Human Regular 100 UNIT in 0.9 % Sodium Chloride 100 ML IVC SCH (00:15)
[2019-07-27 02:06] LABS: BUN/Creatinine Ratio 20 (6-26); Blood Urea Nitrogen 17 mg/dL (6-20); Calcium 8.7 mg/dL (8.6-10.3); Carbon Dioxide 22 mEq/L (23-29); Chloride 104 mEq/L (98-107); Glucose 131 mg/dL (70-105); Osmolality,Calculated 283 (280-300); Potassium 5.1 mEq/L (3.5-5.1); Sodium 135 mEq/L (136-145); eGFR For African Americans > 60 (> 60); eGFR For Non-African Americans > 60 (> 60)
[2019-07-27] MEDS ORDERED: Insulin DETEMIR 100 UNIT/ML X5UNITS SQ ONE (02:26)
[2019-07-27] MEDS: 0.9 % Sodium Chloride w KCl 20 MEQ/1,000 ML MLS IVC SCH (03:38)
[2019-07-27 05:55] LABS: Basophils % 0.2 %; Eosinophils % 0.5 %; Hemoglobin 9.6 g/dL (11.5-15.4); Immature Granulocytes % 0.4 % (0-4); Lymphocytes # 0.5 K/mcL (0.6-4.6); Lymphocytes % 5.3 %; Mean Corpuscular Hemoglobin 28.7 pg (28.0-33.3); Mean Corpuscular Volume 89.8 fL (83.0-100.0); Mean Platelet Volume 10.8 fL (9.4-12.4); Monocytes # 0.7 K/mcL (0.0-1.3); Monocytes % 8.2 %; Neutrophils # 7.3 K/mcL (1.6-8.9); Platelet Count 147 K/mcL (140-400); Red Blood Count 3.34 M/mcL (3.82-4.97); Red Cell Distribution Width 14.7 % (11.5-14.5); Segmented Neutrophils % 85.4 %; White Blood Count 8.5 K/mcL (4.3-11.1)
[2019-07-27 06:14] LABS: BUN/Creatinine Ratio 20 (6-26); Blood Urea Nitrogen 16 mg/dL (6-20); Calcium 8.9 mg/dL (8.6-10.3); Carbon Dioxide 22 mEq/L (23-29); Chloride 101 mEq/L (98-107); Glucose 172 mg/dL (70-105); Magnesium 1.7 mg/dL (1.6-2.6); Osmolality,Calculated 283 (280-300); Phosphorous 1.7 mg/dL (2.7-4.5); Potassium 4.2 mEq/L (3.5-5.1); Sodium 134 mEq/L (136-145); eGFR For African Americans > 60 (> 60); eGFR For Non-African Americans > 60 (> 60)
[2019-07-27 06:17] LABS: % Iron Saturation 7 % (15-50); Iron 16 mcg/dL (50-170); Transferrin 168 mg/dL (203-362)
[2019-07-27 06:34] LABS: Ferritin 626 ng/mL (10-120)
[2019-07-27] MEDS ORDERED: Insulin LISPRO 300 UNITS/3 ML VIAL SQ SCH ×4 (07:30→21:00)
[2019-07-27] MEDS: Aspirin 81 MG TAB.CHEW PO SCH (08:23)
[2019-07-27] MEDS: *HR* Ticagrelor 90 MG TABLET PO SCH ×2 (08:24→20:12)
[2019-07-27] MEDS: Metoprolol XL (24 HR) Succ 25 MG TAB.ER.24H PO SCH (08:24)
[2019-07-27 08:25] LABS: Estimated Average Glucose 174 mg/dl
[2019-07-27 08:33] LABS: Amphetamine Screen,Urine Negative ng/mL (Cutoff=1000); Barbiturate Screen,Urine Negative ng/mL (Cutoff=200); Benzodiazepines Screen,Urine Negative ng/mL (Cutoff=200); Cannabinoid Screen,Urine Negative ng/mL (Cutoff = 50); Cocaine Screen,Urine Negative ng/mL (Cutoff= 300); Opiate Screen,Urine Negative ng/mL (Cutoff=300); Phencyclidine Screen,Urine Negative ng/mL (Cutoff=25)
[2019-07-27] MEDS ORDERED: D5% in Water 1,000 ML IVC PRN (08:44)
[2019-07-27] MEDS ORDERED: Dextrose Gel 15 GM/37.5 ML TUBE PO PRN ×2 (08:44)
[2019-07-27] MEDS ORDERED: 0.9 % Sodium Chloride 1,000 ML IVC SCH (08:45)
[2019-07-27] MEDS ORDERED: Iron Sucrose Complex 200 MG in 0.9 % Sodium Chloride 100 ML IVPB SCH (09:00)
[2019-07-27] MEDS: Insulin DETEMIR 100 UNIT/ML X5UNITS SQ SCH ×2 (09:32→20:14)
[2019-07-27] MEDS: Budesonide/Formoterol 160/4.5 1 PUFF INH IH SCH ×2 (09:59→20:13)
[2019-07-27] MEDS: Insulin LISPRO 300 UNITS/3 ML VIAL SQ SCH ×3 (11:54→20:14)
[2019-07-28] MEDS: Budesonide/Formoterol 160/4.5 1 PUFF INH IH SCH ×2 (07:51→22:08)
[2019-07-28] MEDS: Aspirin 81 MG TAB.CHEW PO SCH (08:19)
[2019-07-28] MEDS: Metoprolol XL (24 HR) Succ 25 MG TAB.ER.24H PO SCH (08:20)
[2019-07-28] MEDS: Insulin LISPRO 300 UNITS/3 ML VIAL SQ SCH ×4 (08:20→20:20)
[2019-07-28] MEDS: *HR* Ticagrelor 90 MG TABLET PO SCH ×2 (08:20→20:20)
[2019-07-28] MEDS: Insulin DETEMIR 100 UNIT/ML X5UNITS SQ SCH (08:31)
[2019-07-28] MEDS ORDERED: cefTRIAXone 1,000 MG in Water for inj. (sterile) 10 ML IVP SCH (11:11)
[2019-07-28] MEDS ORDERED: Insulin DETEMIR 100 UNIT/ML X5UNITS SQ ONE (11:43)
[2019-07-28] MEDS ORDERED: Ipratropium/Albuterol Neb 3 ML IH PRN (12:13)
[2019-07-28] MEDS: Gabapentin 400 MG CAPSULE PO SCH ×3 (14:06→20:20)
[2019-07-28 17:36] LABS: Adenovirus F 40/41 PCR Not detected (Not detect); Astrovirus PCR Not detected (Not detect); C.difficile Toxin A/B Gene PCR Not detected (Not detect); Campylobacter by PCR Not detected (Not detect); Cryptosporidium by PCR Not detected (Not detect); Cyclospora cayetanensis PCR Not detected (Not detect); E. coli O157 by PCR Not detected (Not detect); Entamoeba histolytica PCR Not detected (Not detect); Enteroaggregative E.coli(EAEC) Not detected (Not detect); Enteropathogenic E.coli(EPEC) Not detected (Not detect); Enterotoxigenic E.coli (ETEC) Not detected (Not detect); Giardia lamblia PCR Not detected (Not detect); Norovirus GI/GII PCR Not detected (Not detect); Plesiomonas shigelloides PCR Not detected (Not detect); Rotavirus A PCR Not detected (Not detect); Salmonella PCR Not detected (Not detect); Sapovirus PCR Not detected (Not detect); Shig/EnteroinvasiveE coli EIEC Not detected (Not detect); Shigalike tox-prod E coli STEC Not detected (Not detect); Vibrio PCR Not detected (Not detect); Vibrio cholerae PCR Not detected (Not detect); Yersinia enterocolitica PCR Not detected (Not detect)
[2019-07-28] MEDS ORDERED: Insulin DETEMIR 100 UNIT/ML X5UNITS SQ SCH (21:00)
[2019-07-29 05:53] LABS: Hematocrit 28.6 % (35.3-44.9); Hemoglobin 9.6 g/dL (11.5-15.4); Mean Corpuscular HGB Conc 33.6 g/dL (31.6-35.5); Mean Corpuscular Hemoglobin 28.3 pg (28.0-33.3); Mean Corpuscular Volume 84.4 fL (83.0-100.0); Mean Platelet Volume 11.6 fL (9.4-12.4); Platelet Count 178 K/mcL (140-400); Red Blood Count 3.39 M/mcL (3.82-4.97); Red Cell Distribution Width 15.4 % (11.5-14.5); White Blood Count 7.4 K/mcL (4.3-11.1)
[2019-07-29] MEDS: *HR* Enoxaparin 40 MG/0.4 ML SYRINGE SQ SCH (06:06)
[2019-07-29 06:15] LABS: BUN/Creatinine Ratio 22 (6-26); Blood Urea Nitrogen 19 mg/dL (6-20); Calcium 8.9 mg/dL (8.6-10.3); Carbon Dioxide 23 mEq/L (23-29); Chloride 98 mEq/L (98-107); Glucose 357 mg/dL (70-105); Magnesium 1.8 mg/dL (1.6-2.6); Osmolality,Calculated 291 (280-300); Potassium 3.4 mEq/L (3.5-5.1); Sodium 132 mEq/L (136-145); eGFR For African Americans > 60 (> 60); eGFR For Non-African Americans > 60 (> 60)
[2019-07-29] MEDS: Aspirin 81 MG TAB.CHEW PO SCH (07:44)
[2019-07-29] MEDS: Metoprolol XL (24 HR) Succ 25 MG TAB.ER.24H PO SCH (07:44)
[2019-07-29] MEDS: Gabapentin 400 MG CAPSULE PO SCH ×4 (07:44→20:53)
[2019-07-29] MEDS: Isosorbide MONOnitrate (24 HR) 30 MG TAB.ER.24H PO SCH (07:44)
[2019-07-29] MEDS: *HR* Ticagrelor 90 MG TABLET PO SCH ×2 (07:44→20:53)
[2019-07-29] MEDS: Insulin LISPRO 300 UNITS/3 ML VIAL SQ SCH ×5 (07:45→20:54)
[2019-07-29] MEDS ORDERED: Insulin DETEMIR 100 UNIT/ML X5UNITS SQ SCH ×3 (07:45→21:00)
[2019-07-29] MEDS: Budesonide/Formoterol 160/4.5 1 PUFF INH IH SCH ×2 (07:50→19:57)
[2019-07-29] MEDS: Sulfamethoxazole/Trimeth DS 1 EACH TABLET PO SCH ×2 (09:54→20:53)
[2019-07-29] MEDS ORDERED: Insulin DETEMIR 100 UNIT/ML X5UNITS SQ ONE (14:01)
[2019-07-29] MEDS ORDERED: Insulin LISPRO 300 UNITS/3 ML VIAL SQ ONE (18:06)
[2019-07-30] MEDS: *HR* Enoxaparin 40 MG/0.4 ML SYRINGE SQ SCH (05:55)
[2019-07-30] MEDS: Budesonide/Formoterol 160/4.5 1 PUFF INH IH SCH ×2 (07:23→20:18)
[2019-07-30] MEDS ORDERED: Insulin DETEMIR 100 UNIT/ML X5UNITS SQ SCH ×2 (07:30→15:00)
[2019-07-30 08:09] LABS: Calcium 9.5 mg/dL (8.6-10.3); Potassium 3.7 mEq/L (3.5-5.1)
[2019-07-30] MEDS: Isosorbide MONOnitrate (24 HR) 30 MG TAB.ER.24H PO SCH (09:30)
[2019-07-30] MEDS: Sulfamethoxazole/Trimeth DS 1 EACH TABLET PO SCH ×2 (09:30→21:26)
[2019-07-30] MEDS: *HR* Ticagrelor 90 MG TABLET PO SCH ×2 (09:31→21:26)
[2019-07-30] MEDS: Metoprolol XL (24 HR) Succ 25 MG TAB.ER.24H PO SCH (09:31)
[2019-07-30] MEDS: Gabapentin 400 MG CAPSULE PO SCH ×4 (09:31→21:26)
[2019-07-30] MEDS: Aspirin 81 MG TAB.CHEW PO SCH (09:31)
[2019-07-30] MEDS: Insulin LISPRO 300 UNITS/3 ML VIAL SQ SCH ×4 (09:32→17:57)
[2019-07-30] MEDS: Insulin DETEMIR 100 UNIT/ML X5UNITS SQ SCH ×2 (15:10→21:27)
[2019-07-31] MEDS: *HR* Enoxaparin 40 MG/0.4 ML SYRINGE SQ SCH (05:46)
[2019-07-31 06:54] VITALS: BP 102/61
[2019-07-31] MEDS: Budesonide/Formoterol 160/4.5 1 PUFF INH IH SCH (07:43)
[2019-07-31] MEDS: Metoprolol XL (24 HR) Succ 25 MG TAB.ER.24H PO SCH (07:58)
[2019-07-31] MEDS: Sulfamethoxazole/Trimeth DS 1 EACH TABLET PO SCH (07:59)
[2019-07-31] MEDS: Aspirin 81 MG TAB.CHEW PO SCH (07:59)
[2019-07-31] MEDS: Gabapentin 400 MG CAPSULE PO SCH (07:59)
[2019-07-31] MEDS: Insulin DETEMIR 100 UNIT/ML X5UNITS SQ SCH (07:59)
[2019-07-31] MEDS: Isosorbide MONOnitrate (24 HR) 30 MG TAB.ER.24H PO SCH (07:59)
[2019-07-31] MEDS: *HR* Ticagrelor 90 MG TABLET PO SCH (07:59)
[2019-07-31] MEDS ORDERED: Insulin LISPRO 300 UNITS/3 ML VIAL SQ SCH (08:00)
[2019-08-02 11:32] LABS: Immunoglobulin A 443 mg/dL (68-408); Immunoglobulin G 1280 mg/dL (768-1632); Immunoglobulin M 92 mg/dL (35-263)
== END 2019-07-31 10:09 | DRG 638 ==
LOC: EMEROOARM 15:11 → 2NNU 15:11 → 2ANU 07-29 10:37
PROVIDERS: ADMIT Internal Medicine; ATTEND Internal Medicine

== ENCOUNTER 2020-02-24 17:07 | Inpatient (IN) ==
[2020-02-24] MEDS ORDERED: Naloxone 0.4 MG/ML INJ IVP PRN ×2 (21:04→22:33)
[2020-02-24] MEDS ORDERED: Dextrose Gel 15 GM/37.5 ML TUBE PO PRN ×2 (21:05)
[2020-02-24] MEDS ORDERED: *HR* Dextrose 50 % in Water (Vial) 50 ML VIAL IVP PRN (21:05)
[2020-02-24] MEDS ORDERED: D5% in Water 1,000 ML IVC PRN (21:05)
[2020-02-24] MEDS: Insulin LISPRO 300 UNITS/3 ML VIAL SQ SCH ×3 (21:10→21:11)
[2020-02-24] MEDS: Gabapentin 400 MG CAPSULE PO SCH (21:26)
[2020-02-24] MEDS: *HR* Enoxaparin 40 MG/0.4 ML SYRINGE SQ SCH (21:35)
[2020-02-24] MEDS ORDERED: Insulin DETEMIR 100 UNIT/ML X5UNITS SQ SCH (21:45)
[2020-02-24 22:02] LABS: Estimated Average Glucose 269 mg/dl
[2020-02-24] MEDS ORDERED: Acetaminophen 325 MG TABLET PO PRN (22:05)
[2020-02-24] MEDS ORDERED: *HR* Promethazine 25 MG/ML VIAL IVP PRN (22:33)
[2020-02-24] MEDS: Piperacillin/Tazobactam 3.375 GM in 0.9 % Sodium Chloride Mini Bag 100 ML IVPB SCH (22:59)
[2020-02-24] MEDS: 0.9 % Sodium Chloride 1,000 ML IVC SCH (23:00)
[2020-02-24] MEDS: Budesonide/Formoterol 160/4.5 1 PUFF INH IH SCH (23:51)
[2020-02-25] MEDS ORDERED: Insulin LISPRO 300 UNITS/3 ML VIAL SQ SCH
[2020-02-25] MEDS: Insulin LISPRO 300 UNITS/3 ML VIAL SQ SCH ×8 (00:51→21:05)
[2020-02-25] MEDS ORDERED: Vancomycin 1,250 MG/262.5 ML IV.SOLN IVPB SCH (04:00)
[2020-02-25 07:08] LABS: Alanine Aminotransferase 5 Units/L (7-52); Albumin 3.3 g/dL (3.5-5.7); Albumin/Globulin Ratio 0.9 (1.1-2.2); Alkaline Phosphatase 68 Units/L (34-104); Aspartate Amino Transferase 10 Units/L (13-39); BUN/Creatinine Ratio 20 (6-26); Bilirubin,Total 0.5 mg/dL (0.3-1.0); Blood Urea Nitrogen 22 mg/dL (6-20); Calcium 8.6 mg/dL (8.6-10.3); Carbon Dioxide 24 mEq/L (23-29); Chloride 102 mEq/L (98-107); Globulin 3.6 g/dL (2.4-3.5); Glucose 120 mg/dL (70-105); Magnesium 1.8 mg/dL (1.6-2.6); Osmolality,Calculated 285 (280-300); Phosphorous 4.1 mg/dL (2.7-4.5); Potassium 3.7 mEq/L (3.5-5.1); Sodium 135 mEq/L (136-145); Total Protein 6.9 g/dL (6.4-8.9); eGFR For African Americans > 60 (> 60); eGFR For Non-African Americans 51 (> 60)
[2020-02-25 07:09] LABS: INR 1.2; Prothrombin Time 13.3 Seconds (9.4-12.1)
[2020-02-25 07:51] LABS: Hemoglobin 10.2 g/dL (11.5-15.4); Mean Corpuscular HGB Conc 32.9 g/dL (31.6-35.5); Mean Corpuscular Hemoglobin 30.8 pg (28.0-33.3); Mean Corpuscular Volume 93.7 fL (83.0-100.0); Red Blood Count 3.31 M/mcL (3.82-4.97); White Blood Count 11.1 K/mcL (4.3-11.1)
[2020-02-25 07:52] LABS: Basophils % 0.4 %; Eosinophils # 0.1 K/mcL (0.0-0.6); Eosinophils % 1.3 %; Immature Granulocytes % 0.5 % (0-4); Lymphocytes # 1.1 K/mcL (0.6-4.6); Lymphocytes % 9.8 %; Mean Platelet Volume 10.1 fL (9.4-12.4); Monocytes # 0.8 K/mcL (0.0-1.3); Monocytes % 7.5 %; Neutrophils # 8.9 K/mcL (1.6-8.9); Platelet Count 259 K/mcL (140-400); Red Cell Distribution Width 13.4 % (11.5-14.5); Segmented Neutrophils % 80.5 %
[2020-02-25] MEDS: Budesonide/Formoterol 160/4.5 1 PUFF INH IH SCH ×2 (08:24→19:54)
[2020-02-25] MEDS ORDERED: Isosorbide MONOnitrate (24 HR) 30 MG TAB.ER.24H PO SCH (09:00)
[2020-02-25] MEDS: Metoprolol XL (24 HR) Succ 25 MG TAB.ER.24H PO SCH (09:31)
[2020-02-25] MEDS: Gabapentin 400 MG CAPSULE PO SCH ×4 (09:31→21:05)
[2020-02-25] MEDS: Insulin DETEMIR 100 UNIT/ML X5UNITS SQ SCH ×2 (09:32→21:06)
[2020-02-25] MEDS: Piperacillin/Tazobactam 3.375 GM in 0.9 % Sodium Chloride Mini Bag 100 ML IVPB SCH ×3 (09:33→23:56)
[2020-02-25 10:01] LABS: C-Reactive Protein 224 mg/L (Less than 10)
[2020-02-25] MEDS: 0.9 % Sodium Chloride 1,000 ML IVC SCH (21:05)
[2020-02-25] MEDS: *HR* Enoxaparin 40 MG/0.4 ML SYRINGE SQ SCH (21:06)
[2020-02-26 04:54] LABS: Basophils % 0.2 %; Eosinophils # 0.1 K/mcL (0.0-0.6); Eosinophils % 0.7 %; Hematocrit 28.9 % (35.3-44.9); Hemoglobin 9.5 g/dL (11.5-15.4); Immature Granulocytes % 0.6 % (0-4); Lymphocytes # 0.6 K/mcL (0.6-4.6); Lymphocytes % 5.3 %; Mean Corpuscular HGB Conc 32.9 g/dL (31.6-35.5); Mean Corpuscular Hemoglobin 30.6 pg (28.0-33.3); Mean Corpuscular Volume 93.2 fL (83.0-100.0); Mean Platelet Volume 9.6 fL (9.4-12.4); Monocytes # 0.9 K/mcL (0.0-1.3); Monocytes % 7.9 %; Neutrophils # 9.2 K/mcL (1.6-8.9); Platelet Count 233 K/mcL (140-400); Red Cell Distribution Width 13.2 % (11.5-14.5); Segmented Neutrophils % 85.3 %; White Blood Count 10.8 K/mcL (4.3-11.1)
[2020-02-26] MEDS ORDERED: Vancomycin 1,250 MG/262.5 ML IV.SOLN IVPB SCH (05:00)
[2020-02-26 05:08] LABS: BUN/Creatinine Ratio 19 (6-26); Blood Urea Nitrogen 18 mg/dL (6-20); Calcium 8.6 mg/dL (8.6-10.3); Carbon Dioxide 24 mEq/L (23-29); Chloride 104 mEq/L (98-107); Glucose 143 mg/dL (70-105); Osmolality,Calculated 282 (280-300); Potassium 3.7 mEq/L (3.5-5.1); Sodium 134 mEq/L (136-145); Vancomycin,Trough 7 mcg/mL (5-10); eGFR For African Americans > 60 (> 60); eGFR For Non-African Americans 59 (> 60)
[2020-02-26] MEDS: Budesonide/Formoterol 160/4.5 1 PUFF INH IH SCH ×2 (07:35→19:39)
[2020-02-26] MEDS: Piperacillin/Tazobactam 3.375 GM in 0.9 % Sodium Chloride Mini Bag 100 ML IVPB SCH ×3 (09:54→23:54)
[2020-02-26] MEDS: Metoprolol XL (24 HR) Succ 25 MG TAB.ER.24H PO SCH (09:59)
[2020-02-26] MEDS: Gabapentin 400 MG CAPSULE PO SCH ×4 (09:59→21:38)
[2020-02-26] MEDS: Insulin LISPRO 300 UNITS/3 ML VIAL SQ SCH ×4 (10:08→21:39)
[2020-02-26 10:43] LABS: Uric Acid 4.3 mg/dL (2.3-7.6)
[2020-02-26] MEDS: Insulin DETEMIR 100 UNIT/ML X5UNITS SQ SCH ×2 (11:40→21:38)
[2020-02-26] MEDS: Isovue-370 500 ML BOTTLE IVP ONE ×2 (16:01→16:14)
[2020-02-26] MEDS: Vancomycin 1,250 MG/262.5 ML IV.SOLN IVPB SCH (18:13)
[2020-02-26] MEDS: *HR* Enoxaparin 40 MG/0.4 ML SYRINGE SQ SCH (21:38)
[2020-02-27 01:13] LABS: Basophils % 0.2 %; Eosinophils # 0.1 K/mcL (0.0-0.6); Hematocrit 29.1 % (35.3-44.9); Immature Granulocytes % 0.6 % (0-4); Lymphocytes # 0.9 K/mcL (0.6-4.6); Mean Corpuscular HGB Conc 30.9 g/dL (31.6-35.5); Mean Corpuscular Hemoglobin 29.2 pg (28.0-33.3); Mean Corpuscular Volume 94.5 fL (83.0-100.0); Monocytes # 0.8 K/mcL (0.0-1.3); Monocytes % 8.5 %; Neutrophils # 7.9 K/mcL (1.6-8.9); Platelet Count 239 K/mcL (140-400); Red Blood Count 3.08 M/mcL (3.82-4.97); Red Cell Distribution Width 13.3 % (11.5-14.5); Segmented Neutrophils % 80.7 %; White Blood Count 9.8 K/mcL (4.3-11.1)
[2020-02-27 01:32] LABS: BUN/Creatinine Ratio 18 (6-26); Blood Urea Nitrogen 20 mg/dL (6-20); Calcium 8.5 mg/dL (8.6-10.3); Carbon Dioxide 26 mEq/L (23-29); Chloride 107 mEq/L (98-107); Glucose 206 mg/dL (70-105); Osmolality,Calculated 295 (280-300); Potassium 3.9 mEq/L (3.5-5.1); Sodium 138 mEq/L (136-145); eGFR For African Americans > 60 (> 60); eGFR For Non-African Americans 52 (> 60)
[2020-02-27] MEDS: Vancomycin 1,250 MG/262.5 ML IV.SOLN IVPB SCH (06:08)
[2020-02-27] MEDS: Budesonide/Formoterol 160/4.5 1 PUFF INH IH SCH ×2 (07:03→19:50)
[2020-02-27] MEDS: Piperacillin/Tazobactam 3.375 GM in 0.9 % Sodium Chloride Mini Bag 100 ML IVPB SCH ×2 (08:20→15:26)
[2020-02-27] MEDS: Gabapentin 400 MG CAPSULE PO SCH ×4 (08:21→21:57)
[2020-02-27] MEDS: Metoprolol XL (24 HR) Succ 25 MG TAB.ER.24H PO SCH (08:21)
[2020-02-27] MEDS: Insulin LISPRO 300 UNITS/3 ML VIAL SQ SCH ×4 (08:23→21:56)
[2020-02-27] MEDS: Insulin DETEMIR 100 UNIT/ML X5UNITS SQ SCH ×2 (08:38→21:56)
[2020-02-27] MEDS: Vancomycin 1,500 MG/265 ML IV.SOLN IVPB SCH (17:20)
[2020-02-27] MEDS: *HR* Enoxaparin 40 MG/0.4 ML SYRINGE SQ SCH (21:57)
[2020-02-28] MEDS: Piperacillin/Tazobactam 3.375 GM in 0.9 % Sodium Chloride Mini Bag 100 ML IVPB SCH ×3 (00:10→15:23)
[2020-02-28] MEDS: Vancomycin 1,500 MG/265 ML IV.SOLN IVPB SCH ×2 (05:18→17:49)
[2020-02-28 06:14] LABS: Basophils % 0.4 %; Eosinophils # 0.2 K/mcL (0.0-0.6); Eosinophils % 1.8 %; Hemoglobin 9.1 g/dL (11.5-15.4); Immature Granulocytes % 0.9 % (0-4); Lymphocytes # 0.8 K/mcL (0.6-4.6); Mean Corpuscular HGB Conc 31.4 g/dL (31.6-35.5); Mean Corpuscular Hemoglobin 29.6 pg (28.0-33.3); Mean Corpuscular Volume 94.5 fL (83.0-100.0); Mean Platelet Volume 9.6 fL (9.4-12.4); Monocytes # 0.7 K/mcL (0.0-1.3); Neutrophils # 7.8 K/mcL (1.6-8.9); Platelet Count 254 K/mcL (140-400); Red Blood Count 3.07 M/mcL (3.82-4.97); Red Cell Distribution Width 13.1 % (11.5-14.5); Segmented Neutrophils % 81.9 %; White Blood Count 9.5 K/mcL (4.3-11.1)
[2020-02-28 06:33] LABS: BUN/Creatinine Ratio 20 (6-26); Blood Urea Nitrogen 19 mg/dL (6-20); Carbon Dioxide 26 mEq/L (23-29); Chloride 105 mEq/L (98-107); Glucose 277 mg/dL (70-105); Osmolality,Calculated 296 (280-300); Sodium 137 mEq/L (136-145); eGFR For African Americans > 60 (> 60); eGFR For Non-African Americans > 60 (> 60)
[2020-02-28] MEDS: Insulin LISPRO 300 UNITS/3 ML VIAL SQ SCH ×4 (07:59→22:16)
[2020-02-28] MEDS: Metoprolol XL (24 HR) Succ 25 MG TAB.ER.24H PO SCH (07:59)
[2020-02-28] MEDS: Gabapentin 400 MG CAPSULE PO SCH ×4 (07:59→22:15)
[2020-02-28] MEDS: Insulin DETEMIR 100 UNIT/ML X5UNITS SQ SCH ×2 (08:11→22:16)
[2020-02-28] MEDS ORDERED: Perflutren Lipid Microsphere 1.3 ML in 0.9 % Sodium Chloride 8.7 ML IVP ONE ×2 (09:13→11:50)
[2020-02-28] MEDS: Budesonide/Formoterol 160/4.5 1 PUFF INH IH SCH ×2 (10:26→20:40)
[2020-02-28] MEDS ORDERED: Metoprolol XL (24 HR) Succ 25 MG TAB.ER.24H PO ONE (10:34)
[2020-02-28] MEDS: Aspirin Enteric Coated 81 MG Tablet PO SCH (13:21)
[2020-02-28] MEDS: *HR* Ticagrelor 90 MG TABLET PO SCH ×2 (13:21→22:15)
[2020-02-28] MEDS: *HR* Enoxaparin 40 MG/0.4 ML SYRINGE SQ SCH (22:15)
[2020-02-29] MEDS: Piperacillin/Tazobactam 3.375 GM in 0.9 % Sodium Chloride Mini Bag 100 ML IVPB SCH ×4 (00:41→23:30)
[2020-02-29 04:43] LABS: Hemoglobin 9.1 g/dL (11.5-15.4); Mean Corpuscular HGB Conc 31.4 g/dL (31.6-35.5); Mean Corpuscular Hemoglobin 28.9 pg (28.0-33.3); Mean Corpuscular Volume 92.1 fL (83.0-100.0); Mean Platelet Volume 9.5 fL (9.4-12.4); Platelet Count 268 K/mcL (140-400); Red Blood Count 3.15 M/mcL (3.82-4.97); White Blood Count 8.9 K/mcL (4.3-11.1)
[2020-02-29 05:01] LABS: BUN/Creatinine Ratio 15 (6-26); Blood Urea Nitrogen 12 mg/dL (6-20); Calcium 8.6 mg/dL (8.6-10.3); Carbon Dioxide 26 mEq/L (23-29); Chloride 104 mEq/L (98-107); Glucose 124 mg/dL (70-105); Osmolality,Calculated 289 (280-300); Potassium 3.7 mEq/L (3.5-5.1); Sodium 139 mEq/L (136-145); eGFR For African Americans > 60 (> 60); eGFR For Non-African Americans > 60 (> 60)
[2020-02-29] MEDS: Vancomycin 1,500 MG/265 ML IV.SOLN IVPB SCH ×2 (06:34→17:36)
[2020-02-29] MEDS: Budesonide/Formoterol 160/4.5 1 PUFF INH IH SCH ×2 (08:21→21:16)
[2020-02-29] MEDS: Aspirin Enteric Coated 81 MG Tablet PO SCH (09:59)
[2020-02-29] MEDS: Insulin LISPRO 300 UNITS/3 ML VIAL SQ SCH ×4 (09:59→21:06)
[2020-02-29] MEDS: Gabapentin 400 MG CAPSULE PO SCH ×4 (10:00→21:06)
[2020-02-29] MEDS: Metoprolol XL (24 HR) Succ 25 MG TAB.ER.24H PO SCH (10:00)
[2020-02-29] MEDS: *HR* Ticagrelor 90 MG TABLET PO SCH ×2 (10:01→21:06)
[2020-02-29] MEDS: Insulin DETEMIR 100 UNIT/ML X5UNITS SQ SCH ×2 (10:11→21:07)
[2020-02-29] MEDS: *HR* Enoxaparin 40 MG/0.4 ML SYRINGE SQ SCH (21:06)
[2020-03-01] MEDS: Vancomycin 1,500 MG/265 ML IV.SOLN IVPB SCH ×2 (05:09→18:54)
[2020-03-01 06:31] LABS: Hematocrit 29.4 % (35.3-44.9); Hemoglobin 9.4 g/dL (11.5-15.4); Mean Corpuscular Volume 93.9 fL (83.0-100.0); Mean Platelet Volume 9.9 fL (9.4-12.4); Platelet Count 288 K/mcL (140-400); Red Blood Count 3.13 M/mcL (3.82-4.97); Red Cell Distribution Width 13.2 % (11.5-14.5); White Blood Count 8.3 K/mcL (4.3-11.1)
[2020-03-01 06:52] LABS: BUN/Creatinine Ratio 14 (6-26); Blood Urea Nitrogen 14 mg/dL (6-20); Carbon Dioxide 30 mEq/L (23-29); Chloride 103 mEq/L (98-107); Glucose 152 mg/dL (70-105); Osmolality,Calculated 291 (280-300); Potassium 3.8 mEq/L (3.5-5.1); Sodium 139 mEq/L (136-145); eGFR For African Americans > 60 (> 60); eGFR For Non-African Americans 59 (> 60)
[2020-03-01] MEDS: Budesonide/Formoterol 160/4.5 1 PUFF INH IH SCH ×2 (07:28→19:50)
[2020-03-01] MEDS: Insulin DETEMIR 100 UNIT/ML X5UNITS SQ SCH ×2 (08:34→20:14)
[2020-03-01] MEDS: Aspirin Enteric Coated 81 MG Tablet PO SCH (08:34)
[2020-03-01] MEDS: Metoprolol XL (24 HR) Succ 25 MG TAB.ER.24H PO SCH (08:34)
[2020-03-01] MEDS: *HR* Ticagrelor 90 MG TABLET PO SCH ×2 (08:35→20:15)
[2020-03-01] MEDS: Piperacillin/Tazobactam 3.375 GM in 0.9 % Sodium Chloride Mini Bag 100 ML IVPB SCH ×2 (08:35→17:24)
[2020-03-01] MEDS: Gabapentin 400 MG CAPSULE PO SCH ×4 (08:35→20:15)
[2020-03-01] MEDS: Insulin LISPRO 300 UNITS/3 ML VIAL SQ SCH ×4 (08:35→20:14)
[2020-03-01] MEDS ORDERED: Isovue-300 200 mL Infus..BTL ONE (09:08)
[2020-03-01] MEDS ORDERED: 0.9 % Sodium Chloride 2,000 ML ONE (09:08)
[2020-03-01] MEDS ORDERED: *HR* Heparin 10,000 UNIT/10 ML VIAL ONE (09:08)
[2020-03-01] MEDS ORDERED: *HR* FentaNYL (PF) 100 MCG/2 ML VIAL ONE (13:10)
[2020-03-01] MEDS ORDERED: *HR* Midazolam HCl 2 MG/2 ML VIAL ONE (13:10)
[2020-03-01] MEDS: *HR* Enoxaparin 40 MG/0.4 ML SYRINGE SQ SCH (20:15)
[2020-03-02] MEDS: Piperacillin/Tazobactam 3.375 GM in 0.9 % Sodium Chloride Mini Bag 100 ML IVPB SCH ×4 (01:17→23:53)
[2020-03-02 04:37] LABS: VBG HCO3 30 mEq/L (21-27); VBG PCO2 47 mmHg (41-51); VBG PO2 71 mmHg (25-50)
[2020-03-02 04:50] LABS: Hematocrit 29.7 % (35.3-44.9); Hemoglobin 9.2 g/dL (11.5-15.4); Mean Corpuscular Hemoglobin 28.8 pg (28.0-33.3); Mean Corpuscular Volume 93.1 fL (83.0-100.0); Mean Platelet Volume 9.7 fL (9.4-12.4); Platelet Count 306 K/mcL (140-400); Red Blood Count 3.19 M/mcL (3.82-4.97); Red Cell Distribution Width 13.2 % (11.5-14.5)
[2020-03-02 05:06] LABS: BUN/Creatinine Ratio 14 (6-26); Blood Urea Nitrogen 12 mg/dL (6-20); Calcium 8.3 mg/dL (8.6-10.3); Carbon Dioxide 30 mEq/L (23-29); Chloride 103 mEq/L (98-107); Glucose 122 mg/dL (70-105); Osmolality,Calculated 291 (280-300); Potassium 3.5 mEq/L (3.5-5.1); Sodium 140 mEq/L (136-145); eGFR For African Americans > 60 (> 60); eGFR For Non-African Americans > 60 (> 60)
[2020-03-02] MEDS: Vancomycin 1,500 MG/265 ML IV.SOLN IVPB SCH (05:21)
[2020-03-02] MEDS: Budesonide/Formoterol 160/4.5 1 PUFF INH IH SCH ×2 (07:46→19:40)
[2020-03-02] MEDS ORDERED: 0.9 % Sodium Chloride 1,000 ML IVC SCH (08:45)
[2020-03-02] MEDS ORDERED: Vancomycin 1,250 MG/262.5 ML IV.SOLN IVPB SCH (09:00)
[2020-03-02] MEDS: Gabapentin 400 MG CAPSULE PO SCH ×4 (09:04→21:24)
[2020-03-02] MEDS: Metoprolol XL (24 HR) Succ 25 MG TAB.ER.24H PO SCH (09:04)
[2020-03-02] MEDS: *HR* Ticagrelor 90 MG TABLET PO SCH ×2 (09:07→19:43)
[2020-03-02] MEDS: Insulin DETEMIR 100 UNIT/ML X5UNITS SQ SCH ×2 (09:08→21:25)
[2020-03-02] MEDS: Insulin LISPRO 300 UNITS/3 ML VIAL SQ SCH ×2 (09:23→17:42)
[2020-03-02] MEDS: Aspirin Enteric Coated 81 MG Tablet PO SCH (09:23)
[2020-03-02] MEDS ORDERED: Lidocaine -MPF 2% 2 ML VIAL ONE (10:40)
[2020-03-02] MEDS ORDERED: *HR* Propofol 200 MG/20 ML VIAL IVP ONE ×4 (10:58→11:45)
[2020-03-02] MEDS ORDERED: *HR* FentaNYL (PF) 100 MCG/2 ML VIAL ONE (11:18)
[2020-03-02] MEDS ORDERED: *HR* PHENYLEPHRINE 1,000 MCG/10 ML SYRINGE IVP ONE (11:33)
[2020-03-02] MEDS ORDERED: *HR* Promethazine 25 MG/ML VIAL IVP PRN (12:49)
[2020-03-02] MEDS ORDERED: *HR* Dextrose 50 % in Water (Vial) 50 ML VIAL IVP PRN (12:49)
[2020-03-02] MEDS ORDERED: D5% in Water 1,000 ML IVC PRN (12:49)
[2020-03-02] MEDS ORDERED: Naloxone 0.4 MG/ML INJ IVP PRN (12:49)
[2020-03-02] MEDS ORDERED: Acetaminophen 325 MG TABLET PO PRN (12:49)
[2020-03-02] MEDS ORDERED: Dextrose Gel 15 GM/37.5 ML TUBE PO PRN ×2 (12:49)
[2020-03-02] MEDS ORDERED: *HR* Enoxaparin 40 MG/0.4 ML SYRINGE SQ SCH (21:00)
[2020-03-02] MEDS ORDERED: Insulin LISPRO 300 UNITS/3 ML VIAL SQ SCH (21:00)
[2020-03-02] MEDS: Vancomycin 1,250 MG/262.5 ML IV.SOLN IVPB SCH (21:29)
[2020-03-03 07:31] LABS: Hematocrit 28.2 % (35.3-44.9); Hemoglobin 8.9 g/dL (11.5-15.4); Mean Corpuscular HGB Conc 31.6 g/dL (31.6-35.5); Mean Corpuscular Hemoglobin 29.7 pg (28.0-33.3); Mean Platelet Volume 9.6 fL (9.4-12.4); Platelet Count 318 K/mcL (140-400); Red Cell Distribution Width 13.3 % (11.5-14.5); White Blood Count 9.9 K/mcL (4.3-11.1)
[2020-03-03] MEDS: Budesonide/Formoterol 160/4.5 1 PUFF INH IH SCH (07:35)
[2020-03-03 07:45] LABS: BUN/Creatinine Ratio 13 (6-26); Blood Urea Nitrogen 10 mg/dL (6-20); Calcium 8.7 mg/dL (8.6-10.3); Carbon Dioxide 30 mEq/L (23-29); Chloride 102 mEq/L (98-107); Glucose 187 mg/dL (70-105); Osmolality,Calculated 290 (280-300); Sodium 138 mEq/L (136-145); eGFR For African Americans > 60 (> 60); eGFR For Non-African Americans > 60 (> 60)
[2020-03-03] MEDS: Insulin LISPRO 300 UNITS/3 ML VIAL SQ SCH ×4 (08:43→17:17)
[2020-03-03] MEDS: Piperacillin/Tazobactam 3.375 GM in 0.9 % Sodium Chloride Mini Bag 100 ML IVPB SCH (08:44)
[2020-03-03] MEDS: Vancomycin 1,250 MG/262.5 ML IV.SOLN IVPB SCH (08:45)
[2020-03-03] MEDS: Gabapentin 400 MG CAPSULE PO SCH ×3 (08:45→16:44)
[2020-03-03] MEDS: Insulin DETEMIR 100 UNIT/ML X5UNITS SQ SCH (08:46)
[2020-03-03] MEDS: *HR* Ticagrelor 90 MG TABLET PO SCH (08:46)
[2020-03-03] MEDS ORDERED: Aspirin Enteric Coated 81 MG Tablet PO SCH (09:00)
[2020-03-03] MEDS ORDERED: Metoprolol XL (24 HR) Succ 25 MG TAB.ER.24H PO SCH (09:00)
[2020-03-03] MEDS ORDERED: Furosemide 20 MG TABLET PO ONE (10:00)
[2020-03-03] MEDS ORDERED: levoFLOXacin 750 MG TABLET PO SCH (10:30)
[2020-03-03] MEDS ORDERED: Sulfamethoxazole/Trimeth DS 1 EACH TABLET PO SCH (10:30)
[2020-03-03 14:22] VITALS: BP 112/72
[2020-03-03] MEDS ORDERED: Aminoglycoside Consult 1 EACH MC ONE ×2 (18:00)
== END 2020-03-03 18:01 | DRG 854 ==
LOC: 3ANU → SUATTDRO 19:01
PROVIDERS: ADMIT Internal Medicine; ATTEND Internal Medicine